=== PATIENT | female | born 1940 | race Caucasian/White ===

== ENCOUNTER → 2023-09-02 08:51 | Outpatient (REF) | payer MEDICARE, SELFPAY ==
[2023-09-02 09:13] LABS: % Basophils 1.2 % (0-2); % Eosinophils 1.9 % (0-6); % Immature Granulocytes 0.3 % (0-0.5); % Lymphocytes 15.3 % (20.5-51.1); % Monocytes 6.4 % (1.7-9.3); % Neutrophils 74.9 % (42.2-75.2); Absolute Basophils 0.1 10^3/uL (0-0.2); Absolute Eosinophils 0.1 10^3/uL (0-0.7); Absolute Lymphocytes 1.2 10^3/uL (1.2-3.4); Absolute Monocytes 0.5 10^3/uL (0.1-0.6); Absolute Neutrophils 5.6 10^3/uL (1.4-6.5); Hematocrit 38.2 % (37.0-47.0); Hemoglobin 13.6 g/dL (12.0-16.0); Mean Corp Hgb Conc. 35.6 g/dL (33.0-37.0); Mean Corpuscular Hgb 32.3 pg (27.0-31.0); Mean Corpuscular Volume 90.7 fL (81.0-99.0); Mean Platelet Volume 10.3 fL (7.4-10.4); Platelet Count 110 10^3/uL (130-400); Red Blood Cell Count 4.21 10^6/uL (4.20-5.40); Red Cell Dist. Width 12.4 % (11.5-14.5); White Blood Cell Count 7.5 10^3/uL (4.8-10.8)
== END ==
LOC: OIDL 08:51
PROVIDERS: ATTENDING PHYSICIAN Internal Medicine Hematology & Oncology; FAMILY PHYSICIAN Internal Medicine
DX: D69.3 Immune thrombocytopenic purpura (principal)
CPT/HCPCS: 36415; 85025

== ENCOUNTER → 2023-09-09 09:01 | Outpatient (REF) | payer MEDICARE, SELFPAY ==
[2023-09-09 09:11] LABS: % Basophils 1.5 % (0-2); % Eosinophils 2.7 % (0-6); % Immature Granulocytes 0.3 % (0-0.5); % Lymphocytes 17.3 % (20.5-51.1); % Monocytes 6.1 % (1.7-9.3); % Neutrophils 72.1 % (42.2-75.2); Absolute Basophils 0.1 10^3/uL (0-0.2); Absolute Eosinophils 0.2 10^3/uL (0-0.7); Absolute Lymphocytes 1.5 10^3/uL (1.2-3.4); Absolute Monocytes 0.5 10^3/uL (0.1-0.6); Absolute Neutrophils 6.4 10^3/uL (1.4-6.5); Hematocrit 38.3 % (37.0-47.0); Hemoglobin 13.7 g/dL (12.0-16.0); Mean Corp Hgb Conc. 35.8 g/dL (33.0-37.0); Mean Corpuscular Hgb 32.7 pg (27.0-31.0); Mean Corpuscular Volume 91.4 fL (81.0-99.0); Platelet Count 128 10^3/uL (130-400); Red Blood Cell Count 4.19 10^6/uL (4.20-5.40); Red Cell Dist. Width 12.3 % (11.5-14.5); White Blood Cell Count 8.9 10^3/uL (4.8-10.8)
== END ==
LOC: OIDL 09:01
PROVIDERS: ATTENDING PHYSICIAN Internal Medicine Hematology & Oncology; FAMILY PHYSICIAN Internal Medicine
DX: D69.3 Immune thrombocytopenic purpura (principal)
CPT/HCPCS: 36415; 85025

== ENCOUNTER → 2023-09-16 09:00 | Outpatient (REF) | payer MEDICARE, SELFPAY ==
[2023-09-16 09:13] LABS: % Basophils 1.2 % (0-2); % Eosinophils 1.3 % (0-6); % Immature Granulocytes 0.2 % (0-0.5); % Lymphocytes 15.1 % (20.5-51.1); % Monocytes 6.7 % (1.7-9.3); % Neutrophils 75.5 % (42.2-75.2); Absolute Basophils 0.1 10^3/uL (0-0.2); Absolute Eosinophils 0.1 10^3/uL (0-0.7); Absolute Lymphocytes 1.4 10^3/uL (1.2-3.4); Absolute Monocytes 0.6 10^3/uL (0.1-0.6); Absolute Neutrophils 6.8 10^3/uL (1.4-6.5); Hematocrit 39.1 % (37.0-47.0); Hemoglobin 13.9 g/dL (12.0-16.0); Mean Corp Hgb Conc. 35.5 g/dL (33.0-37.0); Mean Corpuscular Hgb 32.3 pg (27.0-31.0); Mean Corpuscular Volume 90.9 fL (81.0-99.0); Mean Platelet Volume 9.9 fL (7.4-10.4); Platelet Count 90 10^3/uL (130-400); Red Cell Dist. Width 12.3 % (11.5-14.5)
== END ==
LOC: OIDL 09:00
PROVIDERS: ATTENDING PHYSICIAN Internal Medicine Hematology & Oncology
DX: D69.3 Immune thrombocytopenic purpura (principal)
CPT/HCPCS: 36415; 85025

== ENCOUNTER → 2023-09-23 08:59 | Outpatient (REF) | payer MEDICARE, SELFPAY ==
[2023-09-23 09:22] LABS: % Basophils 1.2 % (0-2); % Eosinophils 1.8 % (0-6); % Immature Granulocytes 0.2 % (0-0.5); % Lymphocytes 15.5 % (20.5-51.1); % Neutrophils 75.3 % (42.2-75.2); Absolute Basophils 0.1 10^3/uL (0-0.2); Absolute Eosinophils 0.2 10^3/uL (0-0.7); Absolute Lymphocytes 1.3 10^3/uL (1.2-3.4); Absolute Monocytes 0.5 10^3/uL (0.1-0.6); Absolute Neutrophils 6.4 10^3/uL (1.4-6.5); Hematocrit 38.2 % (37.0-47.0); Hemoglobin 13.5 g/dL (12.0-16.0); Mean Corp Hgb Conc. 35.3 g/dL (33.0-37.0); Mean Corpuscular Hgb 32.1 pg (27.0-31.0); Mean Platelet Volume 9.8 fL (7.4-10.4); Platelet Count 117 10^3/uL (130-400); Red Cell Dist. Width 12.5 % (11.5-14.5); White Blood Cell Count 8.5 10^3/uL (4.8-10.8)
== END ==
LOC: OIDL 08:59
PROVIDERS: ATTENDING PHYSICIAN Internal Medicine Hematology & Oncology; FAMILY PHYSICIAN Internal Medicine
DX: D69.3 Immune thrombocytopenic purpura (principal)
CPT/HCPCS: 36415; 85025

== ENCOUNTER → 2023-09-30 09:03 | Outpatient (REF) | payer MEDICARE, SELFPAY ==
[2023-09-30 09:36] LABS: % Basophils 1.5 % (0-2); % Eosinophils 2.1 % (0-6); % Immature Granulocytes 0.6 % (0-0.5); % Lymphocytes 16.9 % (20.5-51.1); % Monocytes 5.8 % (1.7-9.3); % Neutrophils 73.1 % (42.2-75.2); Absolute Basophils 0.1 10^3/uL (0-0.2); Absolute Eosinophils 0.2 10^3/uL (0-0.7); Absolute Immature Granulocytes 0.1 10^3/uL (0-0.05); Absolute Lymphocytes 1.4 10^3/uL (1.2-3.4); Absolute Monocytes 0.5 10^3/uL (0.1-0.6); Absolute Neutrophils 6.1 10^3/uL (1.4-6.5); Hematocrit 37.7 % (37.0-47.0); Hemoglobin 13.6 g/dL (12.0-16.0); Mean Corp Hgb Conc. 36.1 g/dL (33.0-37.0); Mean Corpuscular Hgb 31.9 pg (27.0-31.0); Mean Corpuscular Volume 88.3 fL (81.0-99.0); Mean Platelet Volume 10.3 fL (7.4-10.4); Nucleated Red Blood Cells % 0 %; Platelet Count 145 10^3/uL (130-400); Red Blood Cell Count 4.27 10^6/uL (4.20-5.40); Red Cell Dist. Width 12.3 % (11.5-14.5); White Blood Cell Count 8.4 10^3/uL (4.8-10.8)
== END ==
LOC: OIDL 09:03
PROVIDERS: ATTENDING PHYSICIAN Internal Medicine Hematology & Oncology
DX: D69.3 Immune thrombocytopenic purpura (principal)
CPT/HCPCS: 85025

== ENCOUNTER → 2023-10-07 09:01 | Outpatient (REF) | payer MEDICARE, SELFPAY ==
[2023-10-07 09:35] LABS: % Basophils 1.1 % (0-2); % Eosinophils 1.2 % (0-6); % Immature Granulocytes 0.1 % (0-0.5); % Lymphocytes 13.3 % (20.5-51.1); % Monocytes 4.4 % (1.7-9.3); % Neutrophils 79.9 % (42.2-75.2); Absolute Basophils 0.1 10^3/uL (0-0.2); Absolute Eosinophils 0.1 10^3/uL (0-0.7); Absolute Lymphocytes 1.3 10^3/uL (1.2-3.4); Absolute Monocytes 0.4 10^3/uL (0.1-0.6); Absolute Neutrophils 7.6 10^3/uL (1.4-6.5); Hematocrit 38.3 % (37.0-47.0); Hemoglobin 13.7 g/dL (12.0-16.0); Mean Corp Hgb Conc. 35.8 g/dL (33.0-37.0); Mean Corpuscular Hgb 32.4 pg (27.0-31.0); Mean Corpuscular Volume 90.5 fL (81.0-99.0); Mean Platelet Volume 10.1 fL (7.4-10.4); Platelet Count 88 10^3/uL (130-400); Red Blood Cell Count 4.23 10^6/uL (4.20-5.40); Red Cell Dist. Width 12.2 % (11.5-14.5); White Blood Cell Count 9.5 10^3/uL (4.8-10.8)
== END ==
LOC: OIDL 09:01
PROVIDERS: ATTENDING PHYSICIAN Internal Medicine Hematology & Oncology; FAMILY PHYSICIAN Internal Medicine
DX: D69.3 Immune thrombocytopenic purpura (principal)
CPT/HCPCS: 36415; 85025

== ENCOUNTER → 2023-10-14 08:54 | Outpatient (REF) | payer MEDICARE, SELFPAY ==
[2023-10-14 09:20] LABS: % Basophils 1.1 % (0-2); % Eosinophils 1.1 % (0-6); % Immature Granulocytes 0.2 % (0-0.5); % Lymphocytes 12.7 % (20.5-51.1); % Neutrophils 78.9 % (42.2-75.2); Absolute Basophils 0.1 10^3/uL (0-0.2); Absolute Eosinophils 0.1 10^3/uL (0-0.7); Absolute Lymphocytes 1.3 10^3/uL (1.2-3.4); Absolute Monocytes 0.6 10^3/uL (0.1-0.6); Absolute Neutrophils 8.2 10^3/uL (1.4-6.5); Hematocrit 38.7 % (37.0-47.0); Hemoglobin 13.8 g/dL (12.0-16.0); Mean Corp Hgb Conc. 35.7 g/dL (33.0-37.0); Mean Corpuscular Hgb 32.1 pg (27.0-31.0); Mean Platelet Volume 10.4 fL (7.4-10.4); Platelet Count 89 10^3/uL (130-400); Red Cell Dist. Width 12.4 % (11.5-14.5); White Blood Cell Count 10.5 10^3/uL (4.8-10.8)
== END ==
LOC: OIDL 08:54
PROVIDERS: ATTENDING PHYSICIAN Internal Medicine Hematology & Oncology
DX: D69.3 Immune thrombocytopenic purpura (principal)
CPT/HCPCS: 36415; 85025

== ENCOUNTER → 2023-10-15 13:17 | Outpatient (REF) | payer MEDICARE, SELFPAY ==
[2023-10-15 13:18] LABS: Urine Albumin Negative (Neg - Trace); Urine Bilirubin Negative (Negative); Urine Character Very Cloudy (Clear); Urine Color Yellow; Urine Glucose Negative (Negative); Urine Ketone Negative (Negative); Urine Leukocyte 2+ (Negative); Urine Nitrite Negative (Negative); Urine Occult Blood 1+ (Negative); Urine Specific Gravity 1.015 (<1.030); Urine Urobilinogen Negative (Neg - 1+)
[2023-10-15 15:01] LABS: Urine Mucus Few
[2023-10-15 15:02] LABS: Urine Red Blood Cell 0-2 /HPF (0-2); Urine White Cell >100 /HPF (0-5)
[2023-10-15 15:06] LABS: Urine Bacteria Few (Negative)
== END ==
LOC: OIDL 13:17
PROVIDERS: ATTENDING PHYSICIAN Internal Medicine Hematology & Oncology
DX: D69.3 Immune thrombocytopenic purpura (principal); N39.0 Urinary tract infection, site not specified
CPT/HCPCS: 81003; 81015; 87086; 87147; 87186

== ENCOUNTER → 2023-10-21 08:57 | Outpatient (REF) | payer MEDICARE, SELFPAY ==
[2023-10-21 09:13] LABS: % Basophils 1.4 % (0-2); % Eosinophils 1.4 % (0-6); % Immature Granulocytes 0.3 % (0-0.5); % Lymphocytes 13.9 % (20.5-51.1); % Monocytes 5.9 % (1.7-9.3); % Neutrophils 77.1 % (42.2-75.2); Absolute Basophils 0.1 10^3/uL (0-0.2); Absolute Eosinophils 0.1 10^3/uL (0-0.7); Absolute Lymphocytes 1.4 10^3/uL (1.2-3.4); Absolute Monocytes 0.6 10^3/uL (0.1-0.6); Absolute Neutrophils 7.7 10^3/uL (1.4-6.5); Hematocrit 38.3 % (37.0-47.0); Hemoglobin 13.7 g/dL (12.0-16.0); Mean Corp Hgb Conc. 35.8 g/dL (33.0-37.0); Mean Corpuscular Hgb 32.2 pg (27.0-31.0); Mean Corpuscular Volume 90.1 fL (81.0-99.0); Mean Platelet Volume 9.9 fL (7.4-10.4); Platelet Count 123 10^3/uL (130-400); Red Blood Cell Count 4.25 10^6/uL (4.20-5.40); Red Cell Dist. Width 12.3 % (11.5-14.5)
== END ==
LOC: OIDL 08:57
PROVIDERS: ATTENDING PHYSICIAN Internal Medicine Hematology & Oncology
DX: D69.3 Immune thrombocytopenic purpura (principal)
CPT/HCPCS: 36415; 85025

== ENCOUNTER → 2023-10-28 08:54 | Outpatient (REF) | payer MEDICARE, SELFPAY ==
[2023-10-28 09:06] LABS: % Basophils 1.4 % (0-2); % Eosinophils 1.3 % (0-6); % Immature Granulocytes 0.1 % (0-0.5); % Monocytes 6.8 % (1.7-9.3); % Neutrophils 73.4 % (42.2-75.2); Absolute Basophils 0.1 10^3/uL (0-0.2); Absolute Eosinophils 0.1 10^3/uL (0-0.7); Absolute Lymphocytes 1.6 10^3/uL (1.2-3.4); Absolute Monocytes 0.6 10^3/uL (0.1-0.6); Absolute Neutrophils 6.7 10^3/uL (1.4-6.5); Hematocrit 38.4 % (37.0-47.0); Hemoglobin 13.8 g/dL (12.0-16.0); Mean Corp Hgb Conc. 35.9 g/dL (33.0-37.0); Mean Corpuscular Hgb 32.1 pg (27.0-31.0); Mean Corpuscular Volume 89.3 fL (81.0-99.0); Mean Platelet Volume 9.8 fL (7.4-10.4); Platelet Count 120 10^3/uL (130-400); Red Cell Dist. Width 12.3 % (11.5-14.5); White Blood Cell Count 9.1 10^3/uL (4.8-10.8)
== END ==
LOC: OIDL 08:54
PROVIDERS: ATTENDING PHYSICIAN Internal Medicine Hematology & Oncology
DX: D69.3 Immune thrombocytopenic purpura (principal)
CPT/HCPCS: 36415; 85025

== ENCOUNTER → 2023-11-04 10:35 | Outpatient (REF) | payer MEDICARE, SELFPAY ==
[2023-11-04 10:45] LABS: % Basophils 1.3 % (0-2); % Eosinophils 0.7 % (0-6); % Immature Granulocytes 0.1 % (0-0.5); % Monocytes 5.6 % (1.7-9.3); % Neutrophils 78.3 % (42.2-75.2); Absolute Basophils 0.1 10^3/uL (0-0.2); Absolute Eosinophils 0.1 10^3/uL (0-0.7); Absolute Lymphocytes 1.3 10^3/uL (1.2-3.4); Absolute Monocytes 0.5 10^3/uL (0.1-0.6); Absolute Neutrophils 7.1 10^3/uL (1.4-6.5); Hematocrit 39.5 % (37.0-47.0); Mean Corp Hgb Conc. 35.4 g/dL (33.0-37.0); Mean Corpuscular Hgb 32.1 pg (27.0-31.0); Mean Corpuscular Volume 90.6 fL (81.0-99.0); Mean Platelet Volume 10.3 fL (7.4-10.4); Platelet Count 73 10^3/uL (130-400); Red Blood Cell Count 4.36 10^6/uL (4.20-5.40); Red Cell Dist. Width 12.2 % (11.5-14.5)
== END ==
LOC: OIDL 10:35
PROVIDERS: ATTENDING PHYSICIAN Internal Medicine Hematology & Oncology; FAMILY PHYSICIAN Internal Medicine
DX: D69.3 Immune thrombocytopenic purpura (principal)
CPT/HCPCS: 36415; 85025

== ENCOUNTER → 2023-11-11 08:59 | Outpatient (REF) | payer MEDICARE, SELFPAY ==
[2023-11-11 09:10] LABS: % Basophils 1.1 % (0-2); % Eosinophils 1.6 % (0-6); % Immature Granulocytes 0.1 % (0-0.5); % Lymphocytes 17.3 % (20.5-51.1); % Monocytes 6.6 % (1.7-9.3); % Neutrophils 73.3 % (42.2-75.2); Absolute Basophils 0.1 10^3/uL (0-0.2); Absolute Eosinophils 0.2 10^3/uL (0-0.7); Absolute Lymphocytes 1.6 10^3/uL (1.2-3.4); Absolute Monocytes 0.6 10^3/uL (0.1-0.6); Absolute Neutrophils 6.9 10^3/uL (1.4-6.5); Hematocrit 39.3 % (37.0-47.0); Mean Corp Hgb Conc. 35.6 g/dL (33.0-37.0); Mean Corpuscular Hgb 32.1 pg (27.0-31.0); Mean Corpuscular Volume 90.1 fL (81.0-99.0); Mean Platelet Volume 10.4 fL (7.4-10.4); Platelet Count 127 10^3/uL (130-400); Red Blood Cell Count 4.36 10^6/uL (4.20-5.40); Red Cell Dist. Width 12.3 % (11.5-14.5); White Blood Cell Count 9.4 10^3/uL (4.8-10.8)
== END ==
LOC: OIDL 08:59
PROVIDERS: ATTENDING PHYSICIAN Internal Medicine Hematology & Oncology; FAMILY PHYSICIAN Internal Medicine
DX: D69.3 Immune thrombocytopenic purpura (principal); Z83.49 Family history of other endocrine, nutritional and metabolic diseases
CPT/HCPCS: 36415; 85025

== ENCOUNTER → 2023-11-18 09:06 | Outpatient (REF) | payer MEDICARE, SELFPAY ==
[2023-11-18 09:16] LABS: % Basophils 1.6 % (0-2); % Eosinophils 1.9 % (0-6); % Immature Granulocytes 0.3 % (0-0.5); % Lymphocytes 14.6 % (20.5-51.1); % Neutrophils 75.6 % (42.2-75.2); Absolute Basophils 0.2 10^3/uL (0-0.2); Absolute Eosinophils 0.2 10^3/uL (0-0.7); Absolute Lymphocytes 1.4 10^3/uL (1.2-3.4); Absolute Monocytes 0.6 10^3/uL (0.1-0.6); Hematocrit 39.9 % (37.0-47.0); Hemoglobin 14.1 g/dL (12.0-16.0); Mean Corp Hgb Conc. 35.3 g/dL (33.0-37.0); Mean Corpuscular Hgb 31.8 pg (27.0-31.0); Mean Corpuscular Volume 89.9 fL (81.0-99.0); Platelet Count 111 10^3/uL (130-400); Red Blood Cell Count 4.44 10^6/uL (4.20-5.40); Red Cell Dist. Width 12.3 % (11.5-14.5); White Blood Cell Count 9.3 10^3/uL (4.8-10.8)
== END ==
LOC: OIDL 09:06
PROVIDERS: ATTENDING PHYSICIAN Internal Medicine Hematology & Oncology; FAMILY PHYSICIAN Internal Medicine
DX: D69.3 Immune thrombocytopenic purpura (principal)
CPT/HCPCS: 36415; 85025

== ENCOUNTER → 2023-11-25 08:58 | Outpatient (REF) | payer MEDICARE, SELFPAY ==
[2023-11-25 09:11] LABS: % Basophils 1.4 % (0-2); % Eosinophils 1.5 % (0-6); % Immature Granulocytes 0.2 % (0-0.5); % Lymphocytes 16.1 % (20.5-51.1); % Monocytes 6.4 % (1.7-9.3); % Neutrophils 74.4 % (42.2-75.2); Absolute Basophils 0.1 10^3/uL (0-0.2); Absolute Eosinophils 0.1 10^3/uL (0-0.7); Absolute Lymphocytes 1.4 10^3/uL (1.2-3.4); Absolute Monocytes 0.6 10^3/uL (0.1-0.6); Absolute Neutrophils 6.5 10^3/uL (1.4-6.5); Mean Corpuscular Hgb 31.5 pg (27.0-31.0); Mean Corpuscular Volume 90.1 fL (81.0-99.0); Platelet Count 89 10^3/uL (130-400); Red Blood Cell Count 4.44 10^6/uL (4.20-5.40); Red Cell Dist. Width 12.5 % (11.5-14.5); White Blood Cell Count 8.7 10^3/uL (4.8-10.8)
== END ==
LOC: OIDL 08:58
PROVIDERS: ATTENDING PHYSICIAN Nurse Practitioner Adult Health; FAMILY PHYSICIAN Internal Medicine
DX: D69.3 Immune thrombocytopenic purpura (principal)
CPT/HCPCS: 36415; 85025

== ENCOUNTER → 2023-12-02 09:04 | Outpatient (REF) | payer MEDICARE, SELFPAY ==
[2023-12-02 09:18] LABS: % Eosinophils 1.4 % (0-6); % Immature Granulocytes 0.1 % (0-0.5); % Monocytes 6.7 % (1.7-9.3); % Neutrophils 76.8 % (42.2-75.2); Absolute Basophils 0.1 10^3/uL (0-0.2); Absolute Eosinophils 0.1 10^3/uL (0-0.7); Absolute Lymphocytes 1.3 10^3/uL (1.2-3.4); Absolute Monocytes 0.6 10^3/uL (0.1-0.6); Hematocrit 39.7 % (37.0-47.0); Mean Corp Hgb Conc. 35.3 g/dL (33.0-37.0); Mean Corpuscular Hgb 31.7 pg (27.0-31.0); Mean Corpuscular Volume 89.8 fL (81.0-99.0); Mean Platelet Volume 9.9 fL (7.4-10.4); Platelet Count 125 10^3/uL (130-400); Red Blood Cell Count 4.42 10^6/uL (4.20-5.40); Red Cell Dist. Width 12.3 % (11.5-14.5); White Blood Cell Count 9.1 10^3/uL (4.8-10.8)
== END ==
LOC: OIDL 09:04
PROVIDERS: ATTENDING PHYSICIAN Internal Medicine Hematology & Oncology
DX: D69.3 Immune thrombocytopenic purpura (principal)
CPT/HCPCS: 36415; 85025

== ENCOUNTER → 2023-12-09 09:05 | Outpatient (REF) | payer MEDICARE, SELFPAY ==
[2023-12-09 09:15] LABS: % Basophils 1.3 % (0-2); % Eosinophils 2.2 % (0-6); % Immature Granulocytes 0.2 % (0-0.5); % Lymphocytes 18.3 % (20.5-51.1); Absolute Basophils 0.1 10^3/uL (0-0.2); Absolute Eosinophils 0.2 10^3/uL (0-0.7); Absolute Lymphocytes 1.6 10^3/uL (1.2-3.4); Absolute Monocytes 0.5 10^3/uL (0.1-0.6); Absolute Neutrophils 6.3 10^3/uL (1.4-6.5); Hematocrit 38.6 % (37.0-47.0); Hemoglobin 13.7 g/dL (12.0-16.0); Mean Corp Hgb Conc. 35.5 g/dL (33.0-37.0); Mean Corpuscular Hgb 31.7 pg (27.0-31.0); Mean Corpuscular Volume 89.4 fL (81.0-99.0); Mean Platelet Volume 9.9 fL (7.4-10.4); Platelet Count 72 10^3/uL (130-400); Red Blood Cell Count 4.32 10^6/uL (4.20-5.40); Red Cell Dist. Width 12.5 % (11.5-14.5); White Blood Cell Count 8.7 10^3/uL (4.8-10.8)
== END ==
LOC: OIDL 09:05
PROVIDERS: ATTENDING PHYSICIAN Internal Medicine Hematology & Oncology
DX: D69.3 Immune thrombocytopenic purpura (principal)
CPT/HCPCS: 36415; 85025

== ENCOUNTER → 2023-12-16 09:03 | Outpatient (REF) | payer MEDICARE, SELFPAY ==
[2023-12-16 09:27] LABS: % Basophils 1.4 % (0-2); % Eosinophils 1.5 % (0-6); % Lymphocytes 17.2 % (20.5-51.1); % Neutrophils 73.9 % (42.2-75.2); Absolute Basophils 0.1 10^3/uL (0-0.2); Absolute Eosinophils 0.1 10^3/uL (0-0.7); Absolute Lymphocytes 1.3 10^3/uL (1.2-3.4); Absolute Monocytes 0.4 10^3/uL (0.1-0.6); Absolute Neutrophils 5.5 10^3/uL (1.4-6.5); Hematocrit 38.4 % (37.0-47.0); Hemoglobin 13.7 g/dL (12.0-16.0); Mean Corp Hgb Conc. 35.7 g/dL (33.0-37.0); Mean Corpuscular Volume 89.7 fL (81.0-99.0); Platelet Count 79 10^3/uL (130-400); Red Blood Cell Count 4.28 10^6/uL (4.20-5.40); Red Cell Dist. Width 12.4 % (11.5-14.5); White Blood Cell Count 7.4 10^3/uL (4.8-10.8)
== END ==
LOC: OIDL 09:03
PROVIDERS: ATTENDING PHYSICIAN Internal Medicine Hematology & Oncology; FAMILY PHYSICIAN Internal Medicine
DX: D69.3 Immune thrombocytopenic purpura (principal)
CPT/HCPCS: 36415; 85025

== ENCOUNTER → 2023-12-23 08:59 | Outpatient (REF) | payer MEDICARE, SELFPAY ==
[2023-12-23 09:25] LABS: % Basophils 1.1 % (0-2); % Immature Granulocytes 0.2 % (0-0.5); % Lymphocytes 15.3 % (20.5-51.1); % Monocytes 5.7 % (1.7-9.3); % Neutrophils 75.7 % (42.2-75.2); Absolute Basophils 0.1 10^3/uL (0-0.2); Absolute Eosinophils 0.2 10^3/uL (0-0.7); Absolute Lymphocytes 1.7 10^3/uL (1.2-3.4); Absolute Monocytes 0.6 10^3/uL (0.1-0.6); Absolute Neutrophils 8.3 10^3/uL (1.4-6.5); Hematocrit 38.8 % (37.0-47.0); Hemoglobin 13.7 g/dL (12.0-16.0); Mean Corp Hgb Conc. 35.3 g/dL (33.0-37.0); Mean Corpuscular Hgb 31.9 pg (27.0-31.0); Mean Corpuscular Volume 90.4 fL (81.0-99.0); Mean Platelet Volume 10.1 fL (7.4-10.4); Platelet Count 111 10^3/uL (130-400); Red Blood Cell Count 4.29 10^6/uL (4.20-5.40); Red Cell Dist. Width 12.4 % (11.5-14.5); White Blood Cell Count 10.9 10^3/uL (4.8-10.8)
== END ==
LOC: OIDL 08:59
PROVIDERS: ATTENDING PHYSICIAN Internal Medicine Hematology & Oncology
DX: D69.3 Immune thrombocytopenic purpura (principal)
CPT/HCPCS: 36415; 85025

== ENCOUNTER → 2023-12-30 08:55 | Outpatient (REF) | payer MEDICARE, SELFPAY ==
[2023-12-30 09:08] LABS: % Immature Granulocytes 0.2 % (0-0.5); % Lymphocytes 18.2 % (20.5-51.1); % Monocytes 5.7 % (1.7-9.3); % Neutrophils 72.9 % (42.2-75.2); Absolute Basophils 0.1 10^3/uL (0-0.2); Absolute Eosinophils 0.2 10^3/uL (0-0.7); Absolute Lymphocytes 1.6 10^3/uL (1.2-3.4); Absolute Monocytes 0.5 10^3/uL (0.1-0.6); Absolute Neutrophils 6.4 10^3/uL (1.4-6.5); Hematocrit 38.3 % (37.0-47.0); Hemoglobin 13.7 g/dL (12.0-16.0); Mean Corp Hgb Conc. 35.8 g/dL (33.0-37.0); Mean Corpuscular Hgb 32.2 pg (27.0-31.0); Mean Corpuscular Volume 89.9 fL (81.0-99.0); Mean Platelet Volume 9.7 fL (7.4-10.4); Platelet Count 115 10^3/uL (130-400); Red Blood Cell Count 4.26 10^6/uL (4.20-5.40); Red Cell Dist. Width 12.5 % (11.5-14.5); White Blood Cell Count 8.8 10^3/uL (4.8-10.8)
== END ==
LOC: OIDL 08:55
PROVIDERS: ATTENDING PHYSICIAN Internal Medicine Hematology & Oncology; FAMILY PHYSICIAN Internal Medicine
DX: D69.3 Immune thrombocytopenic purpura (principal)
CPT/HCPCS: 36415; 85025

== ENCOUNTER → 2024-01-06 09:00 | Outpatient (REF) | payer MEDICARE, SELFPAY ==
[2024-01-06 09:16] LABS: % Eosinophils 1.4 % (0-6); % Immature Granulocytes 0.3 % (0-0.5); % Monocytes 6.4 % (1.7-9.3); % Neutrophils 73.9 % (42.2-75.2); Absolute Basophils 0.1 10^3/uL (0-0.2); Absolute Eosinophils 0.1 10^3/uL (0-0.7); Absolute Lymphocytes 1.4 10^3/uL (1.2-3.4); Absolute Monocytes 0.5 10^3/uL (0.1-0.6); Absolute Neutrophils 5.9 10^3/uL (1.4-6.5); Hematocrit 39.5 % (37.0-47.0); Hemoglobin 14.1 g/dL (12.0-16.0); Mean Corp Hgb Conc. 35.7 g/dL (33.0-37.0); Mean Corpuscular Volume 89.8 fL (81.0-99.0); Mean Platelet Volume 9.8 fL (7.4-10.4); Platelet Count 92 10^3/uL (130-400); Red Cell Dist. Width 12.4 % (11.5-14.5)
== END ==
LOC: OIDL 09:00
PROVIDERS: ATTENDING PHYSICIAN Internal Medicine Hematology & Oncology; FAMILY PHYSICIAN Internal Medicine
DX: D69.3 Immune thrombocytopenic purpura (principal)
CPT/HCPCS: 36415; 85025

== ENCOUNTER → 2024-01-13 10:03 | Outpatient (REF) | payer MEDICARE, SELFPAY ==
[2024-01-13 09:55] LABS: % Basophils 0.9 % (0-2); % Eosinophils 1.1 % (0-6); % Immature Granulocytes 0.5 % (0-0.5); % Lymphocytes 14.4 % (20.5-51.1); % Monocytes 5.8 % (1.7-9.3); % Neutrophils 77.3 % (42.2-75.2); Absolute Basophils 0.1 10^3/uL (0-0.2); Absolute Eosinophils 0.2 10^3/uL (0-0.7); Absolute Immature Granulocytes 0.1 10^3/uL (0-0.05); Absolute Lymphocytes 1.9 10^3/uL (1.2-3.4); Absolute Monocytes 0.8 10^3/uL (0.1-0.6); Absolute Neutrophils 10.1 10^3/uL (1.4-6.5); Hemoglobin 14.3 g/dL (12.0-16.0); Mean Corp Hgb Conc. 35.8 g/dL (33.0-37.0); Mean Corpuscular Hgb 32.1 pg (27.0-31.0); Mean Corpuscular Volume 89.9 fL (81.0-99.0); Mean Platelet Volume 11.1 fL (7.4-10.4); Nucleated Red Blood Cells % 0 %; Platelet Count 179 10^3/uL (130-400); Red Blood Cell Count 4.45 10^6/uL (4.20-5.40); Red Cell Dist. Width 12.2 % (11.5-14.5); White Blood Cell Count 13.1 10^3/uL (4.8-10.8)
== END ==
LOC: OIDL 10:03
PROVIDERS: ATTENDING PHYSICIAN Internal Medicine Hematology & Oncology
DX: D69.3 Immune thrombocytopenic purpura (principal)
CPT/HCPCS: 85025

== ENCOUNTER → 2024-01-20 08:49 | Outpatient (REF) | payer MEDICARE, SELFPAY ==
[2024-01-20 08:59] LABS: % Basophils 1.1 % (0-2); % Eosinophils 2.3 % (0-6); % Immature Granulocytes 0.2 % (0-0.5); % Lymphocytes 17.3 % (20.5-51.1); % Monocytes 6.8 % (1.7-9.3); % Neutrophils 72.3 % (42.2-75.2); Absolute Basophils 0.1 10^3/uL (0-0.2); Absolute Eosinophils 0.2 10^3/uL (0-0.7); Absolute Lymphocytes 1.7 10^3/uL (1.2-3.4); Absolute Monocytes 0.7 10^3/uL (0.1-0.6); Hematocrit 38.8 % (37.0-47.0); Hemoglobin 13.9 g/dL (12.0-16.0); Mean Corp Hgb Conc. 35.8 g/dL (33.0-37.0); Mean Corpuscular Volume 89.4 fL (81.0-99.0); Platelet Count 124 10^3/uL (130-400); Red Blood Cell Count 4.34 10^6/uL (4.20-5.40); Red Cell Dist. Width 12.1 % (11.5-14.5); White Blood Cell Count 9.7 10^3/uL (4.8-10.8)
== END ==
LOC: OIDL 08:49
PROVIDERS: ATTENDING PHYSICIAN Internal Medicine Hematology & Oncology; FAMILY PHYSICIAN Internal Medicine
DX: D69.3 Immune thrombocytopenic purpura (principal)
CPT/HCPCS: 36415; 85025

== ENCOUNTER → 2024-01-27 08:55 | Outpatient (REF) | payer MEDICARE, SELFPAY ==
[2024-01-27 09:06] LABS: % Basophils 1.1 % (0-2); % Eosinophils 1.3 % (0-6); % Immature Granulocytes 0.2 % (0-0.5); % Lymphocytes 18.6 % (20.5-51.1); % Monocytes 6.3 % (1.7-9.3); % Neutrophils 72.5 % (42.2-75.2); Absolute Basophils 0.1 10^3/uL (0-0.2); Absolute Eosinophils 0.1 10^3/uL (0-0.7); Absolute Lymphocytes 1.7 10^3/uL (1.2-3.4); Absolute Monocytes 0.6 10^3/uL (0.1-0.6); Absolute Neutrophils 6.6 10^3/uL (1.4-6.5); Hematocrit 39.3 % (37.0-47.0); Mean Corp Hgb Conc. 35.6 g/dL (33.0-37.0); Mean Corpuscular Hgb 31.8 pg (27.0-31.0); Mean Corpuscular Volume 89.3 fL (81.0-99.0); Mean Platelet Volume 9.8 fL (7.4-10.4); Platelet Count 85 10^3/uL (130-400); Red Cell Dist. Width 12.2 % (11.5-14.5); White Blood Cell Count 9.1 10^3/uL (4.8-10.8)
== END ==
LOC: OIDL 08:55
PROVIDERS: ATTENDING PHYSICIAN Internal Medicine Hematology & Oncology
DX: D69.3 Immune thrombocytopenic purpura (principal)
CPT/HCPCS: 36415; 85025

== ENCOUNTER → 2024-02-02 09:01 | Outpatient (REF) | payer MEDICARE, SELFPAY ==
[2024-02-02 09:12] LABS: % Basophils 0.8 % (0-2); % Eosinophils 1.3 % (0-6); % Immature Granulocytes 0.3 % (0-0.5); % Lymphocytes 15.4 % (20.5-51.1); % Monocytes 6.2 % (1.7-9.3); Absolute Basophils 0.1 10^3/uL (0-0.2); Absolute Eosinophils 0.2 10^3/uL (0-0.7); Absolute Lymphocytes 1.8 10^3/uL (1.2-3.4); Absolute Monocytes 0.7 10^3/uL (0.1-0.6); Hematocrit 38.8 % (37.0-47.0); Mean Corp Hgb Conc. 36.1 g/dL (33.0-37.0); Mean Corpuscular Hgb 32.3 pg (27.0-31.0); Mean Corpuscular Volume 89.6 fL (81.0-99.0); Mean Platelet Volume 10.4 fL (7.4-10.4); Platelet Count 134 10^3/uL (130-400); Red Blood Cell Count 4.33 10^6/uL (4.20-5.40); Red Cell Dist. Width 12.5 % (11.5-14.5); White Blood Cell Count 11.9 10^3/uL (4.8-10.8)
== END ==
LOC: OIDL 09:01
PROVIDERS: ATTENDING PHYSICIAN Internal Medicine Hematology & Oncology; FAMILY PHYSICIAN Internal Medicine
DX: D69.3 Immune thrombocytopenic purpura (principal)
CPT/HCPCS: 36415; 85025

== ENCOUNTER → 2024-02-10 09:08 | Outpatient (REF) | payer MEDICARE, SELFPAY ==
[2024-02-10 09:32] LABS: % Eosinophils 1.8 % (0-6); % Immature Granulocytes 0.3 % (0-0.5); % Lymphocytes 14.2 % (20.5-51.1); % Monocytes 6.2 % (1.7-9.3); % Neutrophils 76.5 % (42.2-75.2); Absolute Basophils 0.1 10^3/uL (0-0.2); Absolute Eosinophils 0.2 10^3/uL (0-0.7); Absolute Lymphocytes 1.4 10^3/uL (1.2-3.4); Absolute Monocytes 0.6 10^3/uL (0.1-0.6); Absolute Neutrophils 7.4 10^3/uL (1.4-6.5); Hematocrit 38.1 % (37.0-47.0); Hemoglobin 13.7 g/dL (12.0-16.0); Mean Corpuscular Hgb 32.2 pg (27.0-31.0); Mean Corpuscular Volume 89.4 fL (81.0-99.0); Mean Platelet Volume 9.7 fL (7.4-10.4); Platelet Count 162 10^3/uL (130-400); Red Blood Cell Count 4.26 10^6/uL (4.20-5.40); Red Cell Dist. Width 12.3 % (11.5-14.5); White Blood Cell Count 9.7 10^3/uL (4.8-10.8)
== END ==
LOC: OIDL 09:08
PROVIDERS: ATTENDING PHYSICIAN Internal Medicine Hematology & Oncology; PRIMARYCARE PHYSICIAN Internal Medicine
DX: D69.3 Immune thrombocytopenic purpura (principal)
CPT/HCPCS: 36415; 85025

== ENCOUNTER → 2024-02-17 09:03 | Outpatient (REF) | payer MEDICARE, SELFPAY ==
[2024-02-17 09:23] LABS: % Basophils 1.2 % (0-2); % Eosinophils 1.6 % (0-6); % Immature Granulocytes 0.2 % (0-0.5); % Lymphocytes 18.8 % (20.5-51.1); % Monocytes 6.7 % (1.7-9.3); % Neutrophils 71.5 % (42.2-75.2); Absolute Basophils 0.1 10^3/uL (0-0.2); Absolute Eosinophils 0.1 10^3/uL (0-0.7); Absolute Lymphocytes 1.7 10^3/uL (1.2-3.4); Absolute Monocytes 0.6 10^3/uL (0.1-0.6); Absolute Neutrophils 6.3 10^3/uL (1.4-6.5); Hematocrit 38.7 % (37.0-47.0); Hemoglobin 13.7 g/dL (12.0-16.0); Mean Corp Hgb Conc. 35.4 g/dL (33.0-37.0); Mean Corpuscular Hgb 31.7 pg (27.0-31.0); Mean Corpuscular Volume 89.6 fL (81.0-99.0); Mean Platelet Volume 10.2 fL (7.4-10.4); Platelet Count 73 10^3/uL (130-400); Red Blood Cell Count 4.32 10^6/uL (4.20-5.40); Red Cell Dist. Width 12.4 % (11.5-14.5); White Blood Cell Count 8.9 10^3/uL (4.8-10.8)
== END ==
LOC: OIDL 09:03
PROVIDERS: ATTENDING PHYSICIAN Internal Medicine Hematology & Oncology; FAMILY PHYSICIAN Internal Medicine
DX: D69.3 Immune thrombocytopenic purpura (principal)
CPT/HCPCS: 36415; 85025

== ENCOUNTER → 2024-02-24 09:32 | Outpatient (REF) | payer MEDICARE, SELFPAY ==
[2024-02-24 09:45] LABS: % Basophils 1.3 % (0-2); % Eosinophils 1.3 % (0-6); % Immature Granulocytes 0.3 % (0-0.5); % Lymphocytes 14.6 % (20.5-51.1); % Monocytes 6.2 % (1.7-9.3); % Neutrophils 76.3 % (42.2-75.2); Absolute Basophils 0.1 10^3/uL (0-0.2); Absolute Eosinophils 0.1 10^3/uL (0-0.7); Absolute Lymphocytes 1.3 10^3/uL (1.2-3.4); Absolute Monocytes 0.5 10^3/uL (0.1-0.6); Absolute Neutrophils 6.7 10^3/uL (1.4-6.5); Hematocrit 37.1 % (37.0-47.0); Hemoglobin 13.6 g/dL (12.0-16.0); Mean Corp Hgb Conc. 36.7 g/dL (33.0-37.0); Mean Corpuscular Hgb 31.9 pg (27.0-31.0); Mean Corpuscular Volume 86.9 fL (81.0-99.0); Mean Platelet Volume 10.5 fL (7.4-10.4); Nucleated Red Blood Cells % 0 %; Platelet Count 127 10^3/uL (130-400); Red Blood Cell Count 4.27 10^6/uL (4.20-5.40); Red Cell Dist. Width 12.5 % (11.5-14.5); White Blood Cell Count 8.8 10^3/uL (4.8-10.8)
== END ==
LOC: OIDL 09:32
PROVIDERS: ATTENDING PHYSICIAN Internal Medicine Hematology & Oncology
DX: D69.3 Immune thrombocytopenic purpura (principal)
CPT/HCPCS: 85025

== ENCOUNTER → 2024-03-02 08:56 | Outpatient (REF) | payer MEDICARE, SELFPAY ==
[2024-03-02 09:07] LABS: % Basophils 0.7 % (0-2); % Eosinophils 1.7 % (0-6); % Immature Granulocytes 0.2 % (0-0.5); % Lymphocytes 14.9 % (20.5-51.1); % Monocytes 5.6 % (1.7-9.3); % Neutrophils 76.9 % (42.2-75.2); Absolute Basophils 0.1 10^3/uL (0-0.2); Absolute Eosinophils 0.2 10^3/uL (0-0.7); Absolute Lymphocytes 1.5 10^3/uL (1.2-3.4); Absolute Monocytes 0.6 10^3/uL (0.1-0.6); Absolute Neutrophils 7.6 10^3/uL (1.4-6.5); Hematocrit 38.8 % (37.0-47.0); Hemoglobin 13.8 g/dL (12.0-16.0); Mean Corp Hgb Conc. 35.6 g/dL (33.0-37.0); Mean Corpuscular Hgb 31.8 pg (27.0-31.0); Mean Corpuscular Volume 89.4 fL (81.0-99.0); Platelet Count 132 10^3/uL (130-400); Red Blood Cell Count 4.34 10^6/uL (4.20-5.40); Red Cell Dist. Width 12.4 % (11.5-14.5); White Blood Cell Count 9.9 10^3/uL (4.8-10.8)
== END ==
LOC: OIDL 08:56
PROVIDERS: ATTENDING PHYSICIAN Internal Medicine Hematology & Oncology; FAMILY PHYSICIAN Internal Medicine
DX: D69.3 Immune thrombocytopenic purpura (principal)
CPT/HCPCS: 36415; 85025

== ENCOUNTER → 2024-03-09 09:05 | Outpatient (REF) | payer MEDICARE, SELFPAY ==
[2024-03-09 09:22] LABS: % Eosinophils 1.4 % (0-6); % Immature Granulocytes 0.1 % (0-0.5); % Monocytes 6.3 % (1.7-9.3); % Neutrophils 73.2 % (42.2-75.2); Absolute Basophils 0.1 10^3/uL (0-0.2); Absolute Eosinophils 0.1 10^3/uL (0-0.7); Absolute Lymphocytes 1.4 10^3/uL (1.2-3.4); Absolute Monocytes 0.5 10^3/uL (0.1-0.6); Absolute Neutrophils 5.7 10^3/uL (1.4-6.5); Hematocrit 39.1 % (37.0-47.0); Hemoglobin 14.1 g/dL (12.0-16.0); Mean Corp Hgb Conc. 36.1 g/dL (33.0-37.0); Mean Corpuscular Hgb 32.3 pg (27.0-31.0); Mean Corpuscular Volume 89.5 fL (81.0-99.0); Mean Platelet Volume 9.7 fL (7.4-10.4); Platelet Count 95 10^3/uL (130-400); Red Blood Cell Count 4.37 10^6/uL (4.20-5.40); Red Cell Dist. Width 12.3 % (11.5-14.5); White Blood Cell Count 7.7 10^3/uL (4.8-10.8)
== END ==
LOC: OIDL 09:05
PROVIDERS: ATTENDING PHYSICIAN Internal Medicine Hematology & Oncology; FAMILY PHYSICIAN Internal Medicine
DX: D69.3 Immune thrombocytopenic purpura (principal)
CPT/HCPCS: 85025

== ENCOUNTER → 2024-03-16 09:05 | Outpatient (REF) | payer MEDICARE, SELFPAY ==
[2024-03-16 09:25] LABS: % Eosinophils 1.3 % (0-6); % Immature Granulocytes 0.2 % (0-0.5); % Lymphocytes 17.3 % (20.5-51.1); % Monocytes 5.9 % (1.7-9.3); % Neutrophils 74.3 % (42.2-75.2); Absolute Basophils 0.1 10^3/uL (0-0.2); Absolute Eosinophils 0.1 10^3/uL (0-0.7); Absolute Lymphocytes 1.8 10^3/uL (1.2-3.4); Absolute Monocytes 0.6 10^3/uL (0.1-0.6); Absolute Neutrophils 7.5 10^3/uL (1.4-6.5); Hematocrit 38.8 % (37.0-47.0); Hemoglobin 13.9 g/dL (12.0-16.0); Mean Corp Hgb Conc. 35.8 g/dL (33.0-37.0); Mean Corpuscular Volume 89.4 fL (81.0-99.0); Mean Platelet Volume 9.9 fL (7.4-10.4); Platelet Count 90 10^3/uL (130-400); Red Blood Cell Count 4.34 10^6/uL (4.20-5.40); Red Cell Dist. Width 12.5 % (11.5-14.5); White Blood Cell Count 10.1 10^3/uL (4.8-10.8)
== END ==
LOC: OIDL 09:05
PROVIDERS: ATTENDING PHYSICIAN Internal Medicine Hematology & Oncology
DX: D69.3 Immune thrombocytopenic purpura (principal)
CPT/HCPCS: 36415; 85025

== ENCOUNTER → 2024-03-23 09:10 | Outpatient (REF) | payer MEDICARE, SELFPAY ==
[2024-03-23 09:22] LABS: % Basophils 0.8 % (0-2); % Eosinophils 1.6 % (0-6); % Immature Granulocytes 0.2 % (0-0.5); % Lymphocytes 16.3 % (20.5-51.1); % Monocytes 5.3 % (1.7-9.3); % Neutrophils 75.8 % (42.2-75.2); Absolute Basophils 0.1 10^3/uL (0-0.2); Absolute Eosinophils 0.2 10^3/uL (0-0.7); Absolute Lymphocytes 1.8 10^3/uL (1.2-3.4); Absolute Monocytes 0.6 10^3/uL (0.1-0.6); Absolute Neutrophils 8.2 10^3/uL (1.4-6.5); Hematocrit 40.1 % (37.0-47.0); Hemoglobin 14.3 g/dL (12.0-16.0); Mean Corp Hgb Conc. 35.7 g/dL (33.0-37.0); Mean Corpuscular Hgb 32.2 pg (27.0-31.0); Mean Corpuscular Volume 90.3 fL (81.0-99.0); Mean Platelet Volume 9.9 fL (7.4-10.4); Platelet Count 178 10^3/uL (130-400); Red Blood Cell Count 4.44 10^6/uL (4.20-5.40); Red Cell Dist. Width 12.6 % (11.5-14.5); White Blood Cell Count 10.8 10^3/uL (4.8-10.8)
== END ==
LOC: OIDL 09:10
PROVIDERS: ATTENDING PHYSICIAN Internal Medicine Hematology & Oncology
DX: D69.3 Immune thrombocytopenic purpura (principal)
CPT/HCPCS: 36415; 85025

== ENCOUNTER → 2024-03-30 09:43 | Outpatient (REF) | payer MEDICARE, SELFPAY ==
[2024-03-30 09:47] LABS: % Basophils 1.3 % (0-2); % Eosinophils 1.4 % (0-6); % Immature Granulocytes 0.4 % (0-0.5); % Lymphocytes 14.6 % (20.5-51.1); % Monocytes 5.5 % (1.7-9.3); % Neutrophils 76.8 % (42.2-75.2); Absolute Basophils 0.1 10^3/uL (0-0.2); Absolute Eosinophils 0.1 10^3/uL (0-0.7); Absolute Lymphocytes 1.4 10^3/uL (1.2-3.4); Absolute Monocytes 0.5 10^3/uL (0.1-0.6); Absolute Neutrophils 7.3 10^3/uL (1.4-6.5); Hematocrit 36.7 % (37.0-47.0); Hemoglobin 13.6 g/dL (12.0-16.0); Mean Corp Hgb Conc. 37.1 g/dL (33.0-37.0); Mean Corpuscular Hgb 31.7 pg (27.0-31.0); Mean Corpuscular Volume 85.5 fL (81.0-99.0); Mean Platelet Volume 10.3 fL (7.4-10.4); Nucleated Red Blood Cells % 0 %; Platelet Count 154 10^3/uL (130-400); Red Blood Cell Count 4.29 10^6/uL (4.20-5.40); Red Cell Dist. Width 12.8 % (11.5-14.5); White Blood Cell Count 9.6 10^3/uL (4.8-10.8)
== END ==
LOC: OIDL 09:43
PROVIDERS: ATTENDING PHYSICIAN Internal Medicine Hematology & Oncology
DX: D69.3 Immune thrombocytopenic purpura (principal)
CPT/HCPCS: 85025

== ENCOUNTER → 2024-04-06 09:02 | Outpatient (REF) | payer MEDICARE, SELFPAY ==
[2024-04-06 09:21] LABS: % Eosinophils 1.6 % (0-6); % Immature Granulocytes 0.3 % (0-0.5); % Lymphocytes 17.7 % (20.5-51.1); % Monocytes 5.7 % (1.7-9.3); % Neutrophils 73.7 % (42.2-75.2); Absolute Basophils 0.1 10^3/uL (0-0.2); Absolute Eosinophils 0.2 10^3/uL (0-0.7); Absolute Lymphocytes 1.7 10^3/uL (1.2-3.4); Absolute Monocytes 0.6 10^3/uL (0.1-0.6); Absolute Neutrophils 7.3 10^3/uL (1.4-6.5); Hematocrit 39.2 % (37.0-47.0); Hemoglobin 14.1 g/dL (12.0-16.0); Mean Corpuscular Hgb 32.1 pg (27.0-31.0); Mean Corpuscular Volume 89.3 fL (81.0-99.0); Mean Platelet Volume 9.9 fL (7.4-10.4); Platelet Count 123 10^3/uL (130-400); Red Blood Cell Count 4.39 10^6/uL (4.20-5.40); Red Cell Dist. Width 12.3 % (11.5-14.5); White Blood Cell Count 9.9 10^3/uL (4.8-10.8)
== END ==
LOC: OIDL 09:02
PROVIDERS: ATTENDING PHYSICIAN Internal Medicine Hematology & Oncology; FAMILY PHYSICIAN Internal Medicine
DX: D69.3 Immune thrombocytopenic purpura (principal)
CPT/HCPCS: 36415; 85025

== ENCOUNTER → 2024-04-13 09:00 | Outpatient (REF) | payer MEDICARE, SELFPAY ==
[2024-04-13 09:25] LABS: % Basophils 0.7 % (0-2); % Eosinophils 1.4 % (0-6); % Immature Granulocytes 0.3 % (0-0.5); % Lymphocytes 16.8 % (20.5-51.1); % Monocytes 5.9 % (1.7-9.3); % Neutrophils 74.9 % (42.2-75.2); Absolute Basophils 0.1 10^3/uL (0-0.2); Absolute Eosinophils 0.1 10^3/uL (0-0.7); Absolute Lymphocytes 1.7 10^3/uL (1.2-3.4); Absolute Monocytes 0.6 10^3/uL (0.1-0.6); Absolute Neutrophils 7.4 10^3/uL (1.4-6.5); Hematocrit 38.4 % (37.0-47.0); Hemoglobin 13.9 g/dL (12.0-16.0); Mean Corp Hgb Conc. 36.2 g/dL (33.0-37.0); Mean Corpuscular Hgb 32.3 pg (27.0-31.0); Mean Corpuscular Volume 89.3 fL (81.0-99.0); Platelet Count 109 10^3/uL (130-400); Red Cell Dist. Width 12.3 % (11.5-14.5); White Blood Cell Count 9.9 10^3/uL (4.8-10.8)
== END ==
LOC: OIDL 09:00
PROVIDERS: ATTENDING PHYSICIAN Internal Medicine Hematology & Oncology
DX: D69.3 Immune thrombocytopenic purpura (principal)
CPT/HCPCS: 36415; 85025

== ENCOUNTER → 2024-04-20 09:08 | Outpatient (REF) | payer MEDICARE, SELFPAY ==
[2024-04-20 09:22] LABS: % Basophils 0.7 % (0-2); % Eosinophils 1.6 % (0-6); % Immature Granulocytes 0.1 % (0-0.5); % Lymphocytes 19.4 % (20.5-51.1); % Monocytes 5.8 % (1.7-9.3); % Neutrophils 72.4 % (42.2-75.2); Absolute Basophils 0.1 10^3/uL (0-0.2); Absolute Eosinophils 0.2 10^3/uL (0-0.7); Absolute Lymphocytes 1.8 10^3/uL (1.2-3.4); Absolute Monocytes 0.5 10^3/uL (0.1-0.6); Absolute Neutrophils 6.6 10^3/uL (1.4-6.5); Hemoglobin 13.9 g/dL (12.0-16.0); Mean Corp Hgb Conc. 35.6 g/dL (33.0-37.0); Mean Corpuscular Hgb 31.9 pg (27.0-31.0); Mean Corpuscular Volume 89.4 fL (81.0-99.0); Mean Platelet Volume 9.9 fL (7.4-10.4); Platelet Count 100 10^3/uL (130-400); Red Blood Cell Count 4.36 10^6/uL (4.20-5.40); Red Cell Dist. Width 12.4 % (11.5-14.5); White Blood Cell Count 9.1 10^3/uL (4.8-10.8)
== END ==
LOC: OIDL 09:08
PROVIDERS: ATTENDING PHYSICIAN Internal Medicine Hematology & Oncology
DX: D69.3 Immune thrombocytopenic purpura (principal)
CPT/HCPCS: 36415; 85025

== ENCOUNTER → 2024-04-27 09:09 | Outpatient (REF) | payer MEDICARE, SELFPAY ==
[2024-04-27 09:19] LABS: % Basophils 1.1 % (0-2); % Eosinophils 2.2 % (0-6); % Immature Granulocytes 0.3 % (0-0.5); % Lymphocytes 18.9 % (20.5-51.1); % Monocytes 5.9 % (1.7-9.3); % Neutrophils 71.6 % (42.2-75.2); Absolute Basophils 0.1 10^3/uL (0-0.2); Absolute Eosinophils 0.2 10^3/uL (0-0.7); Absolute Lymphocytes 1.9 10^3/uL (1.2-3.4); Absolute Monocytes 0.6 10^3/uL (0.1-0.6); Absolute Neutrophils 7.1 10^3/uL (1.4-6.5); Hematocrit 39.2 % (37.0-47.0); Hemoglobin 13.9 g/dL (12.0-16.0); Mean Corp Hgb Conc. 35.5 g/dL (33.0-37.0); Mean Corpuscular Hgb 31.9 pg (27.0-31.0); Mean Corpuscular Volume 89.9 fL (81.0-99.0); Mean Platelet Volume 10.1 fL (7.4-10.4); Platelet Count 156 10^3/uL (130-400); Red Blood Cell Count 4.36 10^6/uL (4.20-5.40); Red Cell Dist. Width 12.5 % (11.5-14.5); White Blood Cell Count 9.9 10^3/uL (4.8-10.8)
== END ==
LOC: OIDL 09:09
PROVIDERS: ATTENDING PHYSICIAN Internal Medicine Hematology & Oncology; FAMILY PHYSICIAN Internal Medicine
DX: D69.3 Immune thrombocytopenic purpura (principal)
CPT/HCPCS: 36415; 85025

== ENCOUNTER → 2024-05-04 09:20 | Outpatient (REF) | payer MEDICARE, SELFPAY ==
[2024-05-04 09:43] LABS: % Basophils 1.3 % (0-2); % Eosinophils 1.7 % (0-6); % Immature Granulocytes 0.8 % (0-0.5); % Lymphocytes 17.1 % (20.5-51.1); % Monocytes 6.3 % (1.7-9.3); % Neutrophils 72.8 % (42.2-75.2); Absolute Basophils 0.1 10^3/uL (0-0.2); Absolute Eosinophils 0.2 10^3/uL (0-0.7); Absolute Immature Granulocytes 0.1 10^3/uL (0-0.05); Absolute Lymphocytes 1.8 10^3/uL (1.2-3.4); Absolute Monocytes 0.7 10^3/uL (0.1-0.6); Absolute Neutrophils 7.6 10^3/uL (1.4-6.5); Hematocrit 38.5 % (37.0-47.0); Hemoglobin 13.9 g/dL (12.0-16.0); Mean Corp Hgb Conc. 36.1 g/dL (33.0-37.0); Mean Corpuscular Hgb 32.4 pg (27.0-31.0); Mean Corpuscular Volume 89.7 fL (81.0-99.0); Nucleated Red Blood Cells % 0 %; Platelet Count 242 10^3/uL (130-400); Red Blood Cell Count 4.29 10^6/uL (4.20-5.40); Red Cell Dist. Width 12.6 % (11.5-14.5); White Blood Cell Count 10.4 10^3/uL (4.8-10.8)
== END ==
LOC: OIDL 09:20
PROVIDERS: ATTENDING PHYSICIAN Internal Medicine Hematology & Oncology
DX: D69.3 Immune thrombocytopenic purpura (principal); G62.9 Polyneuropathy, unspecified
CPT/HCPCS: 85025

== ENCOUNTER → 2024-05-11 08:58 | Outpatient (REF) | payer MEDICARE, SELFPAY ==
[2024-05-11 09:16] LABS: % Basophils 1.1 % (0-2); % Eosinophils 2.1 % (0-6); % Immature Granulocytes 0.5 % (0-0.5); % Lymphocytes 17.4 % (20.5-51.1); % Monocytes 6.2 % (1.7-9.3); % Neutrophils 72.7 % (42.2-75.2); Absolute Basophils 0.1 10^3/uL (0-0.2); Absolute Eosinophils 0.2 10^3/uL (0-0.7); Absolute Immature Granulocytes 0.1 10^3/uL (0-0.05); Absolute Lymphocytes 1.9 10^3/uL (1.2-3.4); Absolute Monocytes 0.7 10^3/uL (0.1-0.6); Hematocrit 39.2 % (37.0-47.0); Hemoglobin 13.9 g/dL (12.0-16.0); Mean Corp Hgb Conc. 35.5 g/dL (33.0-37.0); Mean Corpuscular Hgb 31.9 pg (27.0-31.0); Mean Corpuscular Volume 89.9 fL (81.0-99.0); Mean Platelet Volume 9.8 fL (7.4-10.4); Platelet Count 224 10^3/uL (130-400); Red Blood Cell Count 4.36 10^6/uL (4.20-5.40); Red Cell Dist. Width 12.4 % (11.5-14.5)
== END ==
LOC: OIDL 08:58
PROVIDERS: ATTENDING PHYSICIAN Internal Medicine Hematology & Oncology; FAMILY PHYSICIAN Internal Medicine
DX: D69.3 Immune thrombocytopenic purpura (principal)
CPT/HCPCS: 36415; 85025

== ENCOUNTER → 2024-05-18 09:10 | Outpatient (REF) | payer MEDICARE, SELFPAY ==
[2024-05-18 09:19] LABS: % Eosinophils 1.7 % (0-6); % Immature Granulocytes 0.3 % (0-0.5); % Lymphocytes 16.3 % (20.5-51.1); % Monocytes 5.7 % (1.7-9.3); Absolute Basophils 0.1 10^3/uL (0-0.2); Absolute Eosinophils 0.2 10^3/uL (0-0.7); Absolute Lymphocytes 1.4 10^3/uL (1.2-3.4); Absolute Monocytes 0.5 10^3/uL (0.1-0.6); Absolute Neutrophils 6.5 10^3/uL (1.4-6.5); Hemoglobin 13.9 g/dL (12.0-16.0); Mean Corp Hgb Conc. 35.6 g/dL (33.0-37.0); Mean Corpuscular Volume 89.7 fL (81.0-99.0); Mean Platelet Volume 10.1 fL (7.4-10.4); Platelet Count 134 10^3/uL (130-400); Red Blood Cell Count 4.35 10^6/uL (4.20-5.40); Red Cell Dist. Width 12.2 % (11.5-14.5); White Blood Cell Count 8.7 10^3/uL (4.8-10.8)
== END ==
LOC: OIDL 09:10
PROVIDERS: ATTENDING PHYSICIAN Internal Medicine Hematology & Oncology; FAMILY PHYSICIAN Internal Medicine
DX: D69.3 Immune thrombocytopenic purpura (principal)
CPT/HCPCS: 36415; 85025

== ENCOUNTER → 2024-05-25 09:02 | Outpatient (REF) | payer MEDICARE, SELFPAY ==
[2024-05-25 09:40] LABS: % Eosinophils 1.7 % (0-6); % Immature Granulocytes 0.1 % (0-0.5); % Lymphocytes 17.8 % (20.5-51.1); % Monocytes 6.6 % (1.7-9.3); % Neutrophils 72.8 % (42.2-75.2); Absolute Basophils 0.1 10^3/uL (0-0.2); Absolute Eosinophils 0.2 10^3/uL (0-0.7); Absolute Lymphocytes 1.6 10^3/uL (1.2-3.4); Absolute Monocytes 0.6 10^3/uL (0.1-0.6); Absolute Neutrophils 6.4 10^3/uL (1.4-6.5); Hemoglobin 13.6 g/dL (12.0-16.0); Mean Corp Hgb Conc. 35.8 g/dL (33.0-37.0); Mean Corpuscular Hgb 31.9 pg (27.0-31.0); Mean Platelet Volume 10.2 fL (7.4-10.4); Platelet Count 89 10^3/uL (130-400); Red Blood Cell Count 4.27 10^6/uL (4.20-5.40); Red Cell Dist. Width 12.4 % (11.5-14.5); White Blood Cell Count 8.8 10^3/uL (4.8-10.8)
== END ==
LOC: OIDL 09:02
PROVIDERS: ATTENDING PHYSICIAN Internal Medicine Hematology & Oncology; FAMILY PHYSICIAN Internal Medicine
DX: D69.3 Immune thrombocytopenic purpura (principal)
CPT/HCPCS: 36415; 85025

== ENCOUNTER → 2024-06-01 08:57 | Outpatient (REF) | payer MEDICARE, SELFPAY ==
[2024-06-01 09:11] LABS: % Basophils 1.1 % (0-2); % Eosinophils 2.6 % (0-6); % Immature Granulocytes 0.1 % (0-0.5); % Lymphocytes 19.1 % (20.5-51.1); % Monocytes 5.4 % (1.7-9.3); % Neutrophils 71.7 % (42.2-75.2); Absolute Basophils 0.1 10^3/uL (0-0.2); Absolute Eosinophils 0.2 10^3/uL (0-0.7); Absolute Lymphocytes 1.6 10^3/uL (1.2-3.4); Absolute Monocytes 0.5 10^3/uL (0.1-0.6); Hematocrit 37.9 % (37.0-47.0); Hemoglobin 13.5 g/dL (12.0-16.0); Mean Corp Hgb Conc. 35.6 g/dL (33.0-37.0); Mean Corpuscular Hgb 32.1 pg (27.0-31.0); Mean Corpuscular Volume 90.2 fL (81.0-99.0); Mean Platelet Volume 10.2 fL (7.4-10.4); Platelet Count 108 10^3/uL (130-400); Red Cell Dist. Width 12.4 % (11.5-14.5); White Blood Cell Count 8.4 10^3/uL (4.8-10.8)
== END ==
LOC: OIDL 08:57
PROVIDERS: ATTENDING PHYSICIAN Internal Medicine Hematology & Oncology; FAMILY PHYSICIAN Internal Medicine
DX: D69.3 Immune thrombocytopenic purpura (principal)
CPT/HCPCS: 36415; 85025

== ENCOUNTER → 2024-06-08 08:59 | Outpatient (REF) | payer MEDICARE, SELFPAY ==
[2024-06-08 09:10] LABS: % Basophils 1.3 % (0-2); % Eosinophils 2.1 % (0-6); % Immature Granulocytes 0.3 % (0-0.5); % Lymphocytes 18.8 % (20.5-51.1); % Neutrophils 71.5 % (42.2-75.2); Absolute Basophils 0.1 10^3/uL (0-0.2); Absolute Eosinophils 0.2 10^3/uL (0-0.7); Absolute Lymphocytes 1.5 10^3/uL (1.2-3.4); Absolute Monocytes 0.5 10^3/uL (0.1-0.6); Absolute Neutrophils 5.7 10^3/uL (1.4-6.5); Hematocrit 37.6 % (37.0-47.0); Hemoglobin 13.4 g/dL (12.0-16.0); Mean Corp Hgb Conc. 35.6 g/dL (33.0-37.0); Mean Corpuscular Hgb 32.2 pg (27.0-31.0); Mean Corpuscular Volume 90.4 fL (81.0-99.0); Mean Platelet Volume 10.2 fL (7.4-10.4); Platelet Count 81 10^3/uL (130-400); Red Blood Cell Count 4.16 10^6/uL (4.20-5.40); Red Cell Dist. Width 12.5 % (11.5-14.5)
== END ==
LOC: OIDL 08:59
PROVIDERS: ATTENDING PHYSICIAN Internal Medicine Hematology & Oncology; FAMILY PHYSICIAN Internal Medicine
DX: D69.3 Immune thrombocytopenic purpura (principal); N39.0 Urinary tract infection, site not specified
CPT/HCPCS: 36415; 85025

== ENCOUNTER → 2024-06-15 09:20 | Outpatient (REF) | payer MEDICARE, SELFPAY ==
[2024-06-15 09:29] LABS: % Basophils 0.9 % (0-2); % Eosinophils 2.2 % (0-6); % Immature Granulocytes 0.2 % (0-0.5); % Lymphocytes 18.8 % (20.5-51.1); % Monocytes 6.5 % (1.7-9.3); % Neutrophils 71.4 % (42.2-75.2); Absolute Basophils 0.1 10^3/uL (0-0.2); Absolute Eosinophils 0.2 10^3/uL (0-0.7); Absolute Lymphocytes 1.8 10^3/uL (1.2-3.4); Absolute Monocytes 0.6 10^3/uL (0.1-0.6); Absolute Neutrophils 6.8 10^3/uL (1.4-6.5); Hematocrit 40.5 % (37.0-47.0); Hemoglobin 14.1 g/dL (12.0-16.0); Mean Corp Hgb Conc. 34.8 g/dL (33.0-37.0); Mean Corpuscular Hgb 31.6 pg (27.0-31.0); Mean Corpuscular Volume 90.8 fL (81.0-99.0); Mean Platelet Volume 10.2 fL (7.4-10.4); Platelet Count 123 10^3/uL (130-400); Red Blood Cell Count 4.46 10^6/uL (4.20-5.40); Red Cell Dist. Width 12.7 % (11.5-14.5); White Blood Cell Count 9.6 10^3/uL (4.8-10.8)
== END ==
LOC: OIDL 09:20
PROVIDERS: ATTENDING PHYSICIAN Internal Medicine Hematology & Oncology; FAMILY PHYSICIAN Internal Medicine
DX: D69.3 Immune thrombocytopenic purpura (principal)
CPT/HCPCS: 36415; 85025

== ENCOUNTER → 2024-06-22 08:55 | Outpatient (REF) | payer MEDICARE, SELFPAY ==
[2024-06-22 09:30] LABS: % Basophils 0.9 % (0-2); % Eosinophils 1.7 % (0-6); % Immature Granulocytes 0.2 % (0-0.5); % Lymphocytes 17.3 % (20.5-51.1); % Monocytes 5.9 % (1.7-9.3); Absolute Basophils 0.1 10^3/uL (0-0.2); Absolute Eosinophils 0.2 10^3/uL (0-0.7); Absolute Lymphocytes 1.6 10^3/uL (1.2-3.4); Absolute Monocytes 0.6 10^3/uL (0.1-0.6); Absolute Neutrophils 6.9 10^3/uL (1.4-6.5); Hematocrit 37.7 % (37.0-47.0); Hemoglobin 13.3 g/dL (12.0-16.0); Mean Corp Hgb Conc. 35.3 g/dL (33.0-37.0); Mean Corpuscular Volume 90.8 fL (81.0-99.0); Platelet Count 128 10^3/uL (130-400); Red Blood Cell Count 4.15 10^6/uL (4.20-5.40); Red Cell Dist. Width 12.6 % (11.5-14.5); White Blood Cell Count 9.3 10^3/uL (4.8-10.8)
== END ==
LOC: OIDL 08:55
PROVIDERS: ATTENDING PHYSICIAN Internal Medicine Hematology & Oncology; FAMILY PHYSICIAN Internal Medicine
DX: D69.3 Immune thrombocytopenic purpura (principal)
CPT/HCPCS: 36415; 85025

== ENCOUNTER → 2024-06-28 09:02 | Outpatient (REF) | payer MEDICARE, SELFPAY ==
[2024-06-28 09:11] LABS: % Eosinophils 1.9 % (0-6); % Immature Granulocytes 0.1 % (0-0.5); % Lymphocytes 20.2 % (20.5-51.1); % Monocytes 5.9 % (1.7-9.3); % Neutrophils 70.9 % (42.2-75.2); Absolute Basophils 0.1 10^3/uL (0-0.2); Absolute Eosinophils 0.2 10^3/uL (0-0.7); Absolute Lymphocytes 1.6 10^3/uL (1.2-3.4); Absolute Monocytes 0.5 10^3/uL (0.1-0.6); Absolute Neutrophils 5.6 10^3/uL (1.4-6.5); Hematocrit 39.8 % (37.0-47.0); Mean Corp Hgb Conc. 35.2 g/dL (33.0-37.0); Mean Corpuscular Volume 91.1 fL (81.0-99.0); Mean Platelet Volume 10.5 fL (7.4-10.4); Platelet Count 43 10^3/uL (130-400); Red Blood Cell Count 4.37 10^6/uL (4.20-5.40); Red Cell Dist. Width 12.5 % (11.5-14.5); White Blood Cell Count 7.9 10^3/uL (4.8-10.8)
== END ==
LOC: OIDL 09:02
PROVIDERS: ATTENDING PHYSICIAN Internal Medicine Hematology & Oncology; FAMILY PHYSICIAN Internal Medicine
DX: D69.3 Immune thrombocytopenic purpura (principal)
CPT/HCPCS: 36415; 85025

== ENCOUNTER → 2024-07-13 08:56 | Outpatient (REF) | payer MEDICARE, SELFPAY ==
[2024-07-13 09:33] LABS: % Basophils 0.8 % (0-2); % Eosinophils 1.8 % (0-6); % Immature Granulocytes 0.2 % (0-0.5); % Lymphocytes 14.4 % (20.5-51.1); % Monocytes 4.7 % (1.7-9.3); % Neutrophils 78.1 % (42.2-75.2); Absolute Basophils 0.1 10^3/uL (0-0.2); Absolute Eosinophils 0.2 10^3/uL (0-0.7); Absolute Lymphocytes 1.5 10^3/uL (1.2-3.4); Absolute Monocytes 0.5 10^3/uL (0.1-0.6); Absolute Neutrophils 8.1 10^3/uL (1.4-6.5); Hematocrit 39.4 % (37.0-47.0); Hemoglobin 13.9 g/dL (12.0-16.0); Mean Corp Hgb Conc. 35.3 g/dL (33.0-37.0); Mean Corpuscular Volume 90.8 fL (81.0-99.0); Mean Platelet Volume 9.9 fL (7.4-10.4); Platelet Count 85 10^3/uL (130-400); Red Blood Cell Count 4.34 10^6/uL (4.20-5.40); Red Cell Dist. Width 12.5 % (11.5-14.5); White Blood Cell Count 10.3 10^3/uL (4.8-10.8)
== END ==
LOC: OIDL 08:56
PROVIDERS: ATTENDING PHYSICIAN Internal Medicine Hematology & Oncology
DX: D69.3 Immune thrombocytopenic purpura (principal)
CPT/HCPCS: 85025

== ENCOUNTER → 2024-07-20 09:04 | Outpatient (REF) | payer MEDICARE, SELFPAY ==
[2024-07-20 09:22] LABS: % Eosinophils 2.1 % (0-6); % Immature Granulocytes 0.4 % (0-0.5); % Lymphocytes 19.4 % (20.5-51.1); % Monocytes 7.1 % (1.7-9.3); Absolute Basophils 0.1 10^3/uL (0-0.2); Absolute Eosinophils 0.2 10^3/uL (0-0.7); Absolute Lymphocytes 1.6 10^3/uL (1.2-3.4); Absolute Monocytes 0.6 10^3/uL (0.1-0.6); Absolute Neutrophils 5.7 10^3/uL (1.4-6.5); Hematocrit 37.7 % (37.0-47.0); Hemoglobin 13.8 g/dL (12.0-16.0); Mean Corp Hgb Conc. 36.6 g/dL (33.0-37.0); Mean Corpuscular Hgb 32.9 pg (27.0-31.0); Mean Corpuscular Volume 89.8 fL (81.0-99.0); Mean Platelet Volume 10.3 fL (7.4-10.4); Platelet Count 128 10^3/uL (130-400); Red Cell Dist. Width 12.3 % (11.5-14.5); White Blood Cell Count 8.1 10^3/uL (4.8-10.8)
== END ==
LOC: OIDL 09:04
PROVIDERS: ATTENDING PHYSICIAN Internal Medicine Hematology & Oncology
DX: D69.3 Immune thrombocytopenic purpura (principal)
CPT/HCPCS: 36415; 85025

== ENCOUNTER → 2024-07-27 09:03 | Outpatient (REF) | payer MEDICARE, SELFPAY ==
[2024-07-27 09:21] LABS: % Basophils 0.8 % (0-2); % Eosinophils 1.9 % (0-6); % Immature Granulocytes 0.2 % (0-0.5); % Lymphocytes 15.8 % (20.5-51.1); % Monocytes 6.1 % (1.7-9.3); % Neutrophils 75.2 % (42.2-75.2); Absolute Basophils 0.1 10^3/uL (0-0.2); Absolute Eosinophils 0.2 10^3/uL (0-0.7); Absolute Lymphocytes 1.6 10^3/uL (1.2-3.4); Absolute Monocytes 0.6 10^3/uL (0.1-0.6); Absolute Neutrophils 7.5 10^3/uL (1.4-6.5); Hematocrit 38.9 % (37.0-47.0); Hemoglobin 13.8 g/dL (12.0-16.0); Mean Corp Hgb Conc. 35.5 g/dL (33.0-37.0); Mean Corpuscular Volume 90.3 fL (81.0-99.0); Platelet Count 136 10^3/uL (130-400); Red Blood Cell Count 4.31 10^6/uL (4.20-5.40); Red Cell Dist. Width 12.4 % (11.5-14.5)
== END ==
LOC: OIDL 09:03
PROVIDERS: ATTENDING PHYSICIAN Internal Medicine Hematology & Oncology; FAMILY PHYSICIAN Internal Medicine
DX: D69.3 Immune thrombocytopenic purpura (principal)
CPT/HCPCS: 36415; 85025

== ENCOUNTER → 2024-08-03 09:03 | Outpatient (REF) | payer MEDICARE, SELFPAY ==
[2024-08-03 09:27] LABS: % Basophils 0.8 % (0-2); % Eosinophils 1.5 % (0-6); % Immature Granulocytes 0.2 % (0-0.5); % Lymphocytes 15.1 % (20.5-51.1); % Monocytes 4.9 % (1.7-9.3); % Neutrophils 77.5 % (42.2-75.2); Absolute Basophils 0.1 10^3/uL (0-0.2); Absolute Eosinophils 0.2 10^3/uL (0-0.7); Absolute Lymphocytes 1.6 10^3/uL (1.2-3.4); Absolute Monocytes 0.5 10^3/uL (0.1-0.6); Absolute Neutrophils 8.3 10^3/uL (1.4-6.5); Hematocrit 40.9 % (37.0-47.0); Hemoglobin 14.4 g/dL (12.0-16.0); Mean Corp Hgb Conc. 35.2 g/dL (33.0-37.0); Mean Corpuscular Hgb 31.7 pg (27.0-31.0); Mean Corpuscular Volume 90.1 fL (81.0-99.0); Mean Platelet Volume 9.9 fL (7.4-10.4); Platelet Count 199 10^3/uL (130-400); Red Blood Cell Count 4.54 10^6/uL (4.20-5.40); Red Cell Dist. Width 12.2 % (11.5-14.5); White Blood Cell Count 10.7 10^3/uL (4.8-10.8)
== END ==
LOC: OIDL 09:03
PROVIDERS: ATTENDING PHYSICIAN Internal Medicine Hematology & Oncology; FAMILY PHYSICIAN Internal Medicine
DX: D69.3 Immune thrombocytopenic purpura (principal)
CPT/HCPCS: 36415; 85025

== ENCOUNTER → 2024-08-10 08:59 | Outpatient (REF) | payer MEDICARE, SELFPAY ==
[2024-08-10 09:12] LABS: % Basophils 0.9 % (0-2); % Eosinophils 2.2 % (0-6); % Immature Granulocytes 0.1 % (0-0.5); % Monocytes 5.3 % (1.7-9.3); % Neutrophils 73.5 % (42.2-75.2); Absolute Basophils 0.1 10^3/uL (0-0.2); Absolute Eosinophils 0.2 10^3/uL (0-0.7); Absolute Lymphocytes 1.7 10^3/uL (1.2-3.4); Absolute Monocytes 0.5 10^3/uL (0.1-0.6); Hemoglobin 14.1 g/dL (12.0-16.0); Mean Corp Hgb Conc. 35.3 g/dL (33.0-37.0); Mean Corpuscular Hgb 31.3 pg (27.0-31.0); Mean Corpuscular Volume 88.9 fL (81.0-99.0); Mean Platelet Volume 10.1 fL (7.4-10.4); Platelet Count 104 10^3/uL (130-400); Red Cell Dist. Width 12.1 % (11.5-14.5); White Blood Cell Count 9.5 10^3/uL (4.8-10.8)
== END ==
LOC: OIDL 08:59
PROVIDERS: ATTENDING PHYSICIAN Internal Medicine Hematology & Oncology; FAMILY PHYSICIAN Internal Medicine
DX: D69.3 Immune thrombocytopenic purpura (principal)
CPT/HCPCS: 36415; 85025

== ENCOUNTER → 2024-08-17 08:59 | Outpatient (REF) | payer MEDICARE, SELFPAY ==
[2024-08-17 09:33] LABS: % Basophils 1.1 % (0-2); % Eosinophils 1.7 % (0-6); % Immature Granulocytes 0.1 % (0-0.5); % Monocytes 5.6 % (1.7-9.3); % Neutrophils 72.5 % (42.2-75.2); Absolute Basophils 0.1 10^3/uL (0-0.2); Absolute Eosinophils 0.1 10^3/uL (0-0.7); Absolute Lymphocytes 1.6 10^3/uL (1.2-3.4); Absolute Monocytes 0.5 10^3/uL (0.1-0.6); Absolute Neutrophils 6.1 10^3/uL (1.4-6.5); Hematocrit 38.8 % (37.0-47.0); Hemoglobin 13.8 g/dL (12.0-16.0); Mean Corp Hgb Conc. 35.6 g/dL (33.0-37.0); Mean Corpuscular Hgb 31.1 pg (27.0-31.0); Mean Corpuscular Volume 87.4 fL (81.0-99.0); Mean Platelet Volume 10.5 fL (7.4-10.4); Platelet Count 69 10^3/uL (130-400); Red Blood Cell Count 4.44 10^6/uL (4.20-5.40); White Blood Cell Count 8.4 10^3/uL (4.8-10.8)
== END ==
LOC: OIDL 08:59
PROVIDERS: ATTENDING PHYSICIAN Internal Medicine Hematology & Oncology; FAMILY PHYSICIAN Internal Medicine
DX: D69.3 Immune thrombocytopenic purpura (principal)
CPT/HCPCS: 36415; 85025

== ENCOUNTER → 2024-08-24 08:55 | Outpatient (REF) | payer MEDICARE, SELFPAY ==
[2024-08-24 09:13] LABS: % Basophils 0.7 % (0-2); % Eosinophils 0.7 % (0-6); % Immature Granulocytes 0.3 % (0-0.5); % Lymphocytes 10.6 % (20.5-51.1); % Monocytes 4.9 % (1.7-9.3); % Neutrophils 82.8 % (42.2-75.2); Absolute Basophils 0.1 10^3/uL (0-0.2); Absolute Eosinophils 0.1 10^3/uL (0-0.7); Absolute Lymphocytes 1.6 10^3/uL (1.2-3.4); Absolute Monocytes 0.7 10^3/uL (0.1-0.6); Absolute Neutrophils 12.5 10^3/uL (1.4-6.5); Hematocrit 40.7 % (37.0-47.0); Hemoglobin 14.4 g/dL (12.0-16.0); Mean Corp Hgb Conc. 35.4 g/dL (33.0-37.0); Mean Corpuscular Hgb 31.5 pg (27.0-31.0); Mean Corpuscular Volume 89.1 fL (81.0-99.0); Mean Platelet Volume 9.3 fL (7.4-10.4); Platelet Count 108 10^3/uL (130-400); Red Blood Cell Count 4.57 10^6/uL (4.20-5.40); Red Cell Dist. Width 12.1 % (11.5-14.5); White Blood Cell Count 15.1 10^3/uL (4.8-10.8)
[2024-08-24 11:26] LABS: Urine Albumin Trace (Neg - Trace); Urine Bilirubin Negative (Negative); Urine Character Clear (Clear); Urine Color Yellow; Urine Glucose Negative (Negative); Urine Ketone Negative (Negative); Urine Leukocyte 2+ (Negative); Urine Nitrite Negative (Negative); Urine Occult Blood 2+ (Negative); Urine Urobilinogen Negative (Neg - 1+)
[2024-08-24 12:19] LABS: Urine Mucus Moderate
[2024-08-24 12:20] LABS: Urine Amorphous Seen
[2024-08-24 12:21] LABS: Urine White Cell 16-20 /HPF (0-5)
[2024-08-24 12:24] LABS: Urine Bacteria Few (Negative)
== END ==
LOC: OIDL 08:55
PROVIDERS: ATTENDING PHYSICIAN Internal Medicine Hematology & Oncology
DX: D69.3 Immune thrombocytopenic purpura (principal); N39.0 Urinary tract infection, site not specified
CPT/HCPCS: 36415; 81003; 81015; 85025; 87086

== ENCOUNTER 2024-08-25 11:26 | Emergency (ER) | payer MEDICARE, SELFPAY ==
[2024-08-25 11:37] VITALS: BP 171/93
--- NOTE | 2024-08-25 12:30 | EDRN ---
Pt states she was seen at [place] yesterday and had an elevated WBC and urine spec was taken and sent to lab and she was called and informed that she has an UTI. Pt states she has not symptoms yesterday but symptoms of sitting and having pain of
2/10 and when voiding today burning pain at 10/10. Urine spec supplied appeared bloody.
--- NOTE | 2024-08-25 12:41 | ED.GENMED ---
History of Present Illness
General
Chief Complaint: Urinary Symptoms
Time Seen by Provider: 08/25/24 12:35
History of Present Illness
History of Present Illness:
Patient is an 83-year-old female with past medical history of vertigo, ITP, anxiety, depression, and history of prior urinary tract infections, here today with concern for urinary tract infection. She reports undergoing weekly blood work at her
super[employer] office yesterday and she was found to have an elevated white blood cell count. Urinalysis was then performed which was noted to be abnormal. Patient reports she was started on Macrobid solution but pharmacy did not have this in stock.
Patient initially had no symptoms but yesterday developed dysuria and slight suprapubic discomfort. No fevers or vomiting. No back pain. She has had UTIs previously and feels symptoms today are similar. Office was not able to change her script.
Past History
Past History
ED Past Medical History: Other (ITP, glaucoma, anxiety)
ED Past Surgical History: None
Social History
Tobacco: Non-smoker
Alcohol: None
Drug: None
Living: with family
Employment: Retired
Review of Systems
Review of Systems
All Other Systems: ROS reviewed and negative except as documented in HPI and ROS
Phy Exam
Physical Exam
Physical Exam:
GENERAL: Alert , in no apparent distress
EYE: pupils equal and reactive
NECK: Supple, no significant adenopathy.
ENT: o/p clr, mmm.
CARDIAC: Regular rate and rhythm .
LUNGS: Clear breath sounds bilaterally, no acute respiratory distress, no wheezes/rales/rhonchi
ABDOMEN: Soft, without focal tenderness, no r/g, no cvat
NEUROLOGICAL: Alert and oriented, no focal neuro deficits
SKIN: Warm and dry, skin intact.
MUSCULOSKELETAL: No edema, well perfused.
PSYCH: Normal and appropriate interaction.
Course
Orders/Labs/Results
Orders:
Orders
08/25/24 12:44
Urinalysis Reflex To Culture Urgent
Date Specimen was Collected: 08/25/24
Time Specimen was Collected: 12:43
Urine Microscopic Reflex Cult Urgent
Urine Culture Urgent
KHALIF Source: U
Specimen Description:
Date Specimen was Collected: 08/25/24
Time Specimen was Collected: 12:43
08/25/24 13:13
Basic Metabolic Panel Urgent
Complete Blood Count/With Diff Urgent
Abnormal Lab Results
08/25/24 08/25/24
12:44 13:13
WBC 14.8 H 10^3/uL
(4.8-10.8)
RBC 3.96 L 10^6/uL
(4.20-5.40)
Hct 35.3 L %
(37.0-47.0)
MCH 32.1 H pg
(27.0-31.0)
Plt Count 94 L 10^3/uL
(130-400)
Abs Immat Gran (auto) 0.1 H 10^3/uL
(0-0.05)
Absolute Neuts (auto) 12.9 H 10^3/uL
(1.4-6.5)
Absolute Lymphs (auto) 1.1 L 10^3/uL
(1.2-3.4)
Absolute Monos (auto) 0.7 H 10^3/uL
(0.1-0.6)
Neutrophils % 86.7 H %
(42.2-75.2)
Lymphocytes % 7.3 L %
(20.5-51.1)
Sodium 132 L mmol/L
(135-145)
Chloride 94 L mmol/L
(98-107)
BUN 18 H mg/dl
(7-17)
Creatinine 1.2 H mg/dL
(0.6-1.0)
Glucose 108 H mg/dl
(70-99)
Urine Ketones Trace A
(Negative)
Ur Occult Blood Reflex 4+ A
(Negative)
Urine Nitrite (Reflex) Positive A
(Negative)
Urine Bilirubin 1+ A
(Negative)
Leukocyte Esterase Rfl 2+ A
(Negative)
Urine RBC >100 A /HPF
(0-2)
Urine WBC (Reflex) >100 A /HPF
(0-5)
Urine Bacteria (Reflex) Many A
(Negative)
Urine Albumin (Reflex) 3+ A
(Neg - Trace)
08/25/24 13:13
08/25/24 13:13
Vital Signs
Initial and Last Documented VS:
Initial Vital Signs
Temp Pulse Resp BP Pulse Ox
98.8 F 90 18 171/93 99
08/25/24 11:37 08/25/24 11:37 08/25/24 11:37 08/25/24 11:37 08/25/24 11:37
Last Documented Vital Signs
Temp Pulse Resp BP Pulse Ox
98.8 F 90 18 171/93 99
08/25/24 11:37 08/25/24 11:37 08/25/24 11:37 08/25/24 11:37 08/25/24 11:37
MDM/Problems Addressed
Differential Diagnosis Includes:
Patient is an 83-year-old female with past medical history of vertigo, ITP, anxiety, depression, and history of prior urinary tract infections, here today with concern for urinary tract infection. Overall, patient appears well. She is mildly
hypertensive here. Physical examination described above. Given symptoms/findings, will begin with screening labs and a urinalysis.
08/25/2024 14:28: Screening labs reveal a leukocytosis to 14.8. Platelet count decreased at 94,000 which is grossly consistent with the patient's baseline. Sodium 132, chloride 94, and BUN 18/creatinine 1.2 which is grossly consistent with the
patient's baseline. Urinalysis consistent with infection. We will send urine culture. Patient appears well overall and appears suitable for outpatient antibiotic therapy. No findings of a complicated urinary tract infection or pyelonephritis.
Will provide therapy with Macrobid and recommend supportive measures and close follow-up. Of note, patient not able to swallow pills. I did contact the patient's pharmacy and they do advise that the Macrobid capsule can be dissolved in water.
Patient made aware. All questions answered. Stable for discharge.
*Critical Care Note
Total Time (30-74mins, 75-104mins- exclusive of procedures): Not Applicable
ED Attending Note
-
Portions of this chart may have been created with voice recognition software.� Occasional wrong word or��sound alike� substitutions may have occurred due to the inherent limitations of voice recognition software.
Discharge Plan
Departure
Patient Disposition: Home (Routine Discharge)
Date of Disposition: 08/25/24
Time of Disposition: 14:23
Patient with high blood pressure during this ER visit?: Yes
Condition: Good
Covid-19: Not Applicable
Discharge Problem:
Urinary tract infection
Instructions: Urinary Tract Infection, Adult (DC)
Prescriptions:
New
nitrofurantoin monohyd/m-cryst [Macrobid] 100 mg capsule
100 mg PO Q12H 5 Days Qty: 10 0RF
Rx Instructions:
Open capsule and dissolve in water or apple sauce
No Action
dorzolamide-timolol [Cosopt] 22.3-6.8 mg/mL Drops
1 drp BOTH EYES AMHS Qty: 0
lorazepam 1 MG tablet
1 mg PO QID
Suprax 500 mg/5 mL suspension for reconstitution
400 mg PO Q24H 7 Days Qty: 28 0RF
brimonidine 0.2 % drops
1 drp BOTH EYES BID
Alphagan P 0.1 % drops
1 drp BOTH EYES BID
acetaminophen [Tylenol] 325 mg Tablet
325 mg PO TID
Referrals:
Alexandr Campos MD [Family Provider] - Follow up in 5-7 days
Activity Restrictions/Additional Instructions:
You were seen today for evaluation of a urinary tract infection.
Begin taking the oral antibiotics Macrobid as directed.
Follow-up with your doctor within the next 5 to 7 days for close reevaluation.
Return for any new, worsening, or concerning symptoms.
Interventions
Interventions:
*Risk Screen - Suicide Last Done: 08/25/24 12:30
*General Assessment Last Done: 08/25/24 12:30
*Neglect/Abuse Screening Last Done: 08/25/24 12:30
ED- Fall Risk Assessment Last Done: 08/25/24 12:30
*ED COVID-19 Vaccine History Last Done: 08/25/24 12:30
ED-Female Genitourinary Assessment Last Done: 08/25/24 12:30
Discharge Date and Time
Print Language: EGYPTIAN
--- NOTE | 2024-08-25 12:53 | EDRN ---
Arnol Love PA in room w/ pt at this time.
[2024-08-25 13:17] LABS: Urine Albumin 3+ (Neg - Trace); Urine Bilirubin 1+ (Negative); Urine Character Very Cloudy (Clear); Urine Color Brown; Urine Glucose Negative (Negative); Urine Ketone Trace (Negative); Urine Leukocyte 2+ (Negative); Urine Nitrite Positive (Negative); Urine Occult Blood 4+ (Negative); Urine Specific Gravity 1.025 (<1.030); Urine Urobilinogen 1+ (Neg - 1+)
--- NOTE | 2024-08-25 13:17 | EDRN ---
Labs drawn and sent at this time.
--- NOTE | 2024-08-25 13:27 | EDRN ---
Pt moved to RP area at this time by Dai ESPINAL. Dai RN received report at this time from this RN.
[2024-08-25 13:30] LABS: % Basophils 0.7 % (0-2); % Eosinophils 0.6 % (0-6); % Immature Granulocytes 0.3 % (0-0.5); % Lymphocytes 7.3 % (20.5-51.1); % Monocytes 4.4 % (1.7-9.3); % Neutrophils 86.7 % (42.2-75.2); Absolute Basophils 0.1 10^3/uL (0-0.2); Absolute Eosinophils 0.1 10^3/uL (0-0.7); Absolute Immature Granulocytes 0.1 10^3/uL (0-0.05); Absolute Lymphocytes 1.1 10^3/uL (1.2-3.4); Absolute Monocytes 0.7 10^3/uL (0.1-0.6); Absolute Neutrophils 12.9 10^3/uL (1.4-6.5); Hematocrit 35.3 % (37.0-47.0); Hemoglobin 12.7 g/dL (12.0-16.0); Mean Corpuscular Hgb 32.1 pg (27.0-31.0); Mean Corpuscular Volume 89.1 fL (81.0-99.0); Mean Platelet Volume 9.9 fL (7.4-10.4); Nucleated Red Blood Cells % 0 %; Platelet Count 94 10^3/uL (130-400); Red Blood Cell Count 3.96 10^6/uL (4.20-5.40); Red Cell Dist. Width 12.4 % (11.5-14.5); White Blood Cell Count 14.8 10^3/uL (4.8-10.8)
[2024-08-25 13:38] LABS: Blood Urea Nitrogen 18 mg/dl (7-17); Calcium 8.7 mg/dl (8.4-10.2); Carbon Dioxide 30 mmol/L (22-30); Chloride 94 mmol/L (98-107); Glucose 108 mg/dl (70-99); Sodium 132 mmol/L (135-145); eGFR 45.19
[2024-08-25 13:45] LABS: Urine Bacteria Many (Negative); Urine Red Blood Cell >100 /HPF (0-2); Urine White Cell >100 /HPF (0-5)
[2024-08-25 13:47] LABS: Urine Squamous Cell SEEN /LPF (Few)
[2024-08-25 15:11] VITALS: BP 170/90
== END 2024-08-25 15:13 | disposition home or self-care (01) ==
LOC: EMR 11:26
PROVIDERS: Physician Assistant; EMERGENCY PHYSICIAN Emergency Medicine; FAMILY PHYSICIAN Internal Medicine
DX: N39.0 Urinary tract infection, site not specified (principal); R03.0 Elevated blood-pressure reading, without diagnosis of hypertension; F41.9 Anxiety disorder, unspecified; F32.A Depression, unspecified
CPT/HCPCS: 99283; 80048; 81003; 81015; 85025; 87077; 87086; 87186

== ENCOUNTER → 2024-08-30 15:24 | Outpatient (REF) | payer MEDICARE, SELFPAY ==
[2024-08-31 16:21] LABS: Urine Albumin 1+ (Neg - Trace); Urine Bilirubin Negative (Negative); Urine Character Clear (Clear); Urine Color Yellow; Urine Glucose Negative (Negative); Urine Ketone Negative (Negative); Urine Leukocyte 3+ (Negative); Urine Nitrite Negative (Negative); Urine Occult Blood 1+ (Negative); Urine Urobilinogen Negative (Neg - 1+)
[2024-08-31 16:46] LABS: Urine Squamous Cell 16-20 /LPF (Few)
[2024-08-31 16:47] LABS: Urine Bacteria Few (Negative); Urine Red Blood Cell 0-2 /HPF (0-2); Urine White Cell 21-25 /HPF (0-5)
== END ==
LOC: CLAB 15:24
PROVIDERS: ATTENDING PHYSICIAN Physician Assistant
DX: N39.0 Urinary tract infection, site not specified (principal)
CPT/HCPCS: 81003; 81015; 87086

== ENCOUNTER → 2024-08-31 09:11 | Outpatient (REF) | payer MEDICARE, SELFPAY ==
[2024-08-31 09:32] LABS: % Basophils 0.9 % (0-2); % Immature Granulocytes 0.1 % (0-0.5); % Lymphocytes 12.3 % (20.5-51.1); % Monocytes 5.9 % (1.7-9.3); % Neutrophils 78.8 % (42.2-75.2); Absolute Basophils 0.1 10^3/uL (0-0.2); Absolute Eosinophils 0.2 10^3/uL (0-0.7); Absolute Lymphocytes 1.3 10^3/uL (1.2-3.4); Absolute Monocytes 0.6 10^3/uL (0.1-0.6); Absolute Neutrophils 8.1 10^3/uL (1.4-6.5); Hematocrit 39.4 % (37.0-47.0); Hemoglobin 14.1 g/dL (12.0-16.0); Mean Corp Hgb Conc. 35.8 g/dL (33.0-37.0); Mean Corpuscular Hgb 31.5 pg (27.0-31.0); Mean Corpuscular Volume 87.9 fL (81.0-99.0); Mean Platelet Volume 9.8 fL (7.4-10.4); Platelet Count 155 10^3/uL (130-400); Red Blood Cell Count 4.48 10^6/uL (4.20-5.40); Red Cell Dist. Width 12.2 % (11.5-14.5); White Blood Cell Count 10.3 10^3/uL (4.8-10.8)
== END ==
LOC: OIDL 09:11
PROVIDERS: ATTENDING PHYSICIAN Internal Medicine Hematology & Oncology
DX: D69.3 Immune thrombocytopenic purpura (principal)
CPT/HCPCS: 36415; 85025

== ENCOUNTER 2024-09-04 10:54 | Inpatient (IN) | payer MEDICARE, SELFPAY ==
[2024-09-04] VITALS (12 sets, daily range): BP systolic 91–109; BP diastolic 43–66; BMI 19.4; BMI 20.4
[2024-09-04 06:21] LABS: Hematocrit 48.2 % (37.0-47.0); Hemoglobin 16.8 g/dL (12.0-16.0); Mean Corp Hgb Conc. 34.9 g/dL (33.0-37.0); Mean Corpuscular Hgb 31.2 pg (27.0-31.0); Mean Corpuscular Volume 89.6 fL (81.0-99.0); Mean Platelet Volume 11.1 fL (7.4-10.4); Platelet Count 159 10^3/uL (130-400); Red Blood Cell Count 5.38 10^6/uL (4.20-5.40); Red Cell Dist. Width 12.7 % (11.5-14.5); White Blood Cell Count 33.2 10^3/uL (4.8-10.8)
[2024-09-04 06:34] LABS: AST (SGOT) 37 U/L (14-36); Albumin 4.4 g/dl (3.5-5.0); Alkaline Phosphatase 74 U/L (38-126); Blood Urea Nitrogen 28 mg/dl (7-17); Carbon Dioxide 15 mmol/L (22-30); Chloride 97 mmol/L (98-107); Estimated Creatinine Clearance 20 ml/min; Glucose 202 mg/dl (70-99); Potassium 4.8 mmol/L (3.5-5.1); Sodium 132 mmol/L (135-145); Total Bilirubin 1.6 mg/dl (0.2-1.3); Total Protein 6.4 g/dl (6.3-8.2); eGFR 24.48
[2024-09-04 06:39] LABS: Lactic Acid 7.3 mmol/L (0.7-2.0)
[2024-09-04 06:48] LABS: ALT (SGPT) 31 U/L (0-35)
--- NOTE | 2024-09-04 07:06 | EDRN ---
Dr. Gauthier currently at the pts bedside
[2024-09-04 07:26] LABS: Absolute Neutrophils -Man Diff 31.5 10^3/uL (1.4-6.5); Band Neutrophils 37 % (0-3); Lymphocytes 4 % (20-51); Monocytes 1 % (2-9); Normal RBC Morphology Yes; Platelets Checked Yes; Segmented Neutrophils 58 % (42-75); Total Cells Counted 100; Toxic Granulation 1+
[2024-09-04] MEDS: NSS 1500 IV (07:31)
--- NOTE | 2024-09-04 07:50 | EDRN ---
per Dr. Gauthier the pt was straight cathed and urine was collected and sent, the pt stated that she was uncomfortable and wanted to be repositioned, this RN and Ayesha RN repositioned the pt and the pt stated to this RN, 'What do i have to do if i
have to pee i don't want to get up', this RN educated the pt on the use of the pure wick and the pt agreed to use it, this RN and Ayesha RN placed a brent and a brief under the pt and placed the pure wick, the pt then stated that she was still
uncomfortable and wanted to turn on her right side, this RN and Ayesha RN assisted the pt with turning onto her right side, IVF Bolus hung and running, the pt and the pts daughter were updated on the plan of care, when this RN received the pt from
the previous cnc machinist 2nd shift nurse Cele ESPINAL the pt was on RA and Sp02 was 90%, the pt had no c/o chest pain, no c/o SOB, this RN notified Dr. Gauthier and placed the pt on 2L NC and Sp02 came up to 100%, will continue to monitor the pt closely
[2024-09-04 08:25] LABS: Urine Albumin 3+ (Neg - Trace); Urine Bilirubin Negative (Negative); Urine Character Slightly Cloudy (Clear); Urine Color Yellow; Urine Glucose Negative (Negative); Urine Ketone 1+ (Negative); Urine Leukocyte 3+ (Negative); Urine Nitrite Negative (Negative); Urine Occult Blood 4+ (Negative); Urine Urobilinogen Negative (Neg - 1+)
--- NOTE | 2024-09-04 09:19 | ED.GENMED ---
History of Present Illness
General
Chief Complaint: Urinary Symptoms
Source: patient
Exam Limitations: none
Time Seen by Provider: 09/04/24 06:49
Nursing documentation reviewed up to this point in time: agreed with
History of Present Illness
History of Present Illness:
83-year-old female with UTI, generalized weakness. Patient feels she is worsening.
Past History
Past History
ED Past Medical History: Other (ITP, glaucoma, anxiety)
ED Past Surgical History: None
Social History
Tobacco: Non-smoker
Alcohol: None
Drug: None
Living: with family
Employment: Retired
Review of Systems
Review of Systems
Allergies reviewed?: Yes
Constitutional: Reports no symptoms
EENT: Reports no symptoms
Respiratory: Reports no symptoms
Cardiac: Reports no symptoms
ABD/GI: Reports no symptoms
: Reports no symptoms
Musculoskeletal: Reports no symptoms
Skin: Reports no symptoms
Neurological: Reports weakness
Endocrine: Reports no symptoms
Hematologic/Lymphatic: Reports no symptoms
Psychiatric: Reports no symptoms
Phy Exam
Physical Exam
Physical Exam:
Physical Exam
General: no apparent distress, not acutely ill
Neck: supple. no meningeal signs. normal posterior pharynx
Heart: s1/s2 tachycardia, no murmur. equal radial
pulses.
HEENT: Pupils equal round reactive to light, EOMI
Lungs: no acute respiratory distress. clear bilaterally
Abdomen: normal bowel sounds. not tender. no CVAT
Neuro: alert and oriented. no focal neurological deficits cranial nerves II through XII intact
Skin: no rash
Psychiatric: well kept. interactive and cooperative
Extremities: no edema. no calf tenderness. negative homans. good distal pulses
Course
Orders/Labs/Results
Orders:
Orders
09/04/24 05:51
Complete Blood Count/With Diff Urgent
Comprehensive Metabolic Panel Urgent
Lactic Acid Q4H
Comment: ON ICE, CANCEL 2ND ORDER IF FIRST LACTIC ACID LEVEL <2
Manual Differential Urgent
09/04/24 Breakfast
Regular
At Your Request: Full Participation
09/04/24 07:26
0.9% Sodium Chloride 1000 ml [Nss] 1,500 ml IV BOLUS
09/04/24 07:27
Straight cath- Treatment ONCE
09/04/24 07:43
Osmolality, Random Urine Urgent
Date Specimen was Collected: 09/04/24
Time Specimen was Collected: 07:28
Comment: ADD ON
Urinalysis Reflex To Culture Urgent
Date Specimen was Collected: 09/04/24
Time Specimen was Collected: 07:28
Urine Microscopic Reflex Cult Urgent
Urine Sodium Urgent
Date Specimen was Collected: 09/04/24
Time Specimen was Collected: 07:28
Comment: ADD ON
Urine Culture Urgent
KHALIF Source: U
Specimen Description:
Date Specimen was Collected: 09/04/24
Time Specimen was Collected: 07:28
09/04/24 09:13
CefTRIAXone [Rocephin] 1,000 mg IV NOW STA
09/04/24 09:25
CR Chest - 2 Views Urgent
Comment:
Reason For Exam: leucocytosis
09/04/24 09:39
Lactic Acid Q4H
Comment: ON ICE, CANCEL 2ND ORDER IF FIRST LACTIC ACID LEVEL <2
Blood Culture Q30M
KHALIF Source: Blood/Venous
Specimen Description:
Blood Culture Q30M
KHALIF Source: Blood/Venous
Specimen Description:
09/04/24 10:16
Abdomen/Pelvis wo Contrast CT [CT Abd/pelvis Wo Iv Cont] Urgent
Comment: Also look at hips to rule out fracture
Reason For Exam: UTI,[place],R/O Stone, obstruction,Also look at hips
Cervical Spine wo Contrast CT [CT Cervical Spine W/o Iv Contr] Urgent
Comment:
Reason For Exam: fall
Head wo Contrast CT [CT Head W/o Iv Contrast] Urgent
Comment:
Reason For Exam: fall
09/04/24 10:17
Acetaminophen [Tylenol Oral Solution] 1,000 mg PO NOW STA
09/04/24 10:18
Admit/Transfer Patient As Directed
Co-Sign Provider:
Level of Care: Inpatient admission
Assign to:: Medical/Surgical
Physician / Group: Hospitalist
Diagnosis: [place],UTI
Reason for Hospitalization: [place],UTI
Expected length of stay greater than two midnights?: Yes
ELOS- Estimated Length of Stay in days: 2
I certify the patient meets the requirements for IP care: Yes
PRN Pain Medication Management As Directed
May give lesser potent ordered pain med per pt: Yes
preference::
Protocol:: Medication orders for pain may be administered in a
manner that supports deferring to patient preference
when the pt is:
- Requesting an ordered lesser potent pain medication.
Least to most potent pain medications are defined
as: acetaminophen < NSAID < tramadol < opioids
(morphine, oxycodone, hydromorphone).
- Requesting a lesser dose of the same medication IF
ORDERED.
- Requesting a less intrusive route of administration
if both routes are prescribed by the provider (PO <
IV).
09/04/24 10:19
Code Status As Directed
Resuscitation Status: Full Code
09/04/24 10:28
Add On- LAB Routine
Tests Added?: urine osm and urine sod
09/04/24 10:30
0.9% Sodium Chloride 1000 ml [Nss] 1,000 ml IV 100 mls/hr
09/04/24 11:00
Sterile Water For Inj [Sterile Water For Injection 1000 ml] 1,000 ml Sodium Chloride 38.5 meq Sodium Bicarbonate 100 meq IV 100 mls/hr
09/04/24 13:38
Bisacodyl [Dulcolax] 10 mg RECTAL [id number] PRN
Brimonidine [Alphagan 0.2% Eye Drops] 1 drop BOTH EYES BID
Calcium 200mg(Ca. Carb. 500mg) [Tums Chewable Tablet] 200 mg PO QIDPRN PRN
CefTRIAXone [Rocephin] 1,000 mg IV Q24H
Docusate W/Senna [Senokot-S] 1 tablet PO BIDPRN PRN
Lorazepam [Ativan] 1 mg PO Q6
Polyethylene Glycol Powder [Miralax] 17 grams PO DAILYPRN PRN
Timolol Maleate/Dorzolam HCl [Cosopt Eye Drops] 1 drop BOTH EYES BID
09/04/24 13:38
INFECTIOUS DISEASE CONSULT Routine
Consulting Provider: Vaishali Navarro
Was physician already notified: Yes
Reason for consult: UTI
Activity As Directed
Activity Level: Ambulate
Pneumatic Compression Sleeves As Directed
Type: Knee high
Vital Signs As Directed
Frequency: Per unit guidelines
DX Deep Vein Thrombosis Video Routine
09/04/24 13:53
Lactate Level [Lactic Acid] Routine
09/05/24 06:00
Basic Metabolic Panel IN AM
Complete Blood Count/No Diff IN AM
TSH IN AM
Vitamin B12 IN AM
09/07/24 08:00
Nplate 1 dose SC TH
Abnormal Lab Results
09/04/24 09/04/24 09/04/24
05:51 07:43 09:39
WBC 33.2 H 10^3/uL
(4.8-10.8)
Hgb 16.8 H g/dL
(12.0-16.0)
Hct 48.2 H %
(37.0-47.0)
MCH 31.2 H pg
(27.0-31.0)
MPV 11.1 H fL
(7.4-10.4)
Abs Neuts (Manual) 31.5 H 10^3/uL
(1.4-6.5)
Band Neutrophils 37 H %
(0-3)
Lymphocytes (Manual) 4 L %
(20-51)
Monocytes (Manual) 1 L %
(2-9)
Sodium 132 L mmol/L
(135-145)
Chloride 97 L mmol/L
(98-107)
Carbon Dioxide 15 L mmol/L
(22-30)
BUN 28 H mg/dl
(7-17)
Creatinine 2.0 H mg/dL
(0.6-1.0)
Glucose 202 H mg/dl
(70-99)
Lactic Acid 7.3 H* mmol/L 3.2 H mmol/L
(0.7-2.0) (0.7-2.0)
Total Bilirubin 1.6 H mg/dl
(0.2-1.3)
AST 37 H U/L
(14-36)
Urine Ketones 1+ A
(Negative)
Ur Occult Blood Reflex 4+ A
(Negative)
Leukocyte Esterase Rfl 3+ A
(Negative)
Urine RBC >100 A /HPF
(0-2)
Urine WBC (Reflex) 30-40 A /HPF
(0-5)
Urine Bacteria (Reflex) Many A
(Negative)
Urine Sodium 21 L mmol/L
(30-90)
Urine Albumin (Reflex) 3+ A
(Neg - Trace)
09/04/24 05:51
09/04/24 05:51
Vital Signs
Initial and Last Documented VS:
Initial Vital Signs
Temp Pulse Resp BP Pulse Ox
97.9 F 104 18 107/64 95
09/04/24 05:37 09/04/24 05:37 09/04/24 05:37 09/04/24 05:37 09/04/24 05:37
Last Documented Vital Signs
Temp Pulse Resp BP Pulse Ox
98.5 F 110 17 96/43 97
09/04/24 07:19 09/04/24 09:31 09/04/24 09:31 09/04/24 09:31 09/04/24 09:31
MDM/Problems Addressed
Differential Diagnosis Includes:
UTI, sepsis
MDM/Problems Addressed:
83-year-old female with UTI, sepsis, leukocytosis, history of ITP. Admit to hospitalist. IV ceftriaxone given. IV fluids given
*Pulse Oximetry
Patient hypoxic: no
*Critical Care Note
Total Time (30-74mins, 75-104mins- exclusive of procedures): Not Applicable
Patient Management
Social determinants of health affecting care: Living situation and Strong social support
Discussion with other providers: Hospitalist
Escalation/DeEscalation of care consider admission/obs:
Admit indicated
ED Attending Note
-
Portions of this chart may have been created with voice recognition software.� Occasional wrong word or��sound alike� substitutions may have occurred due to the inherent limitations of voice recognition software.
Discharge Plan
Departure
Patient Disposition: Admit
Date of Disposition: 09/04/24
Time of Disposition: 09:11
Admit to: IMU
Presentation/result/management discussed w/ accepting MD/DO: Hospitalist
Patient with high blood pressure during this ER visit?: Yes
Condition: Fair
Discharge Problem:
Urinary tract infection, Sepsis
Interventions
Interventions:
*Risk Screen - Suicide Last Done: 09/04/24 05:37
*General Assessment Last Done: 09/04/24 05:37
*Neglect/Abuse Screening Last Done: 09/04/24 05:37
ED- Fall Risk Assessment Last Done: 09/04/24 07:19
*ED COVID-19 Vaccine History Last Done: 09/04/24 05:47
ED-Female Genitourinary Assessment Last Done: 09/04/24 07:19
--- NOTE | 2024-09-04 09:20 | HPS.HSE ---
Family Physician
-
Family Physician: Alexandr Campos
Chief Complaint
-
Urinary symptoms
History of Present Illness
83-year-old female with history of ITP was seen at oncology office for Nplate on . Patient stated that she had dysuria. She was sent to urology office. She was prescribed nitrofurantoin stated that it took a day for her to get it. She
was also seen in the ER in the meantime. She took it for 5 days yesterday she had severe burning still persisting after taking the antibiotics. No fevers. No abdominal pain she thought that the urine was slightly pink yesterday. She presented
herself to the ER since she was not getting better
Medical History
Past Medical History
Past Medical History: Reports Other
Additional Past Medical History:
Oral surgery
Past Surgical History: Reports Other
Additional Past Surgical History:
Vertigo, ITP, multiple antibiotic allergies, glaucoma, anxiety
Social History
Tobacco: Former Smoker
Alcohol: Occasional
Drug: None
Employment: Not Employed
Family History
Family History: Cancer (Mother had rectal cancer father had pancreatic cancer)
Allergies / Home Medications
Allergies reflects when Allergies were last updated in [employer].
Home Medications with original date entered in [employer]
Allergy/Medication List:
Allergies
Allergy/AdvReac Type Severity Reaction Status Date / Time
acyclovir [From Zovirax] Allergy ANAPHYLAXIS-PT. Verified 09/04/24 05:47
SAID -
LOWERED
HER
PLATELETS
alprazolam [From Xanax] Allergy HYPER Verified 09/04/24 05:47
aspirin Allergy LOWERED Verified 09/04/24 05:47
HER
PLATELETS
caffeine Allergy Unknown Verified 09/04/24 05:47
ciprofloxacin [From Cipro] Allergy Hives Verified 09/04/24 05:47
ciprofloxacin HCl Allergy Hives Verified 09/04/24 05:47
[From Cipro]
epinephrine Allergy HEART RACES Verified 09/04/24 05:47
erythromycin base Allergy 'felt skin Verified 09/04/24 05:47
[Erythromycin Base] crawling'
escitalopram oxalate Allergy THROMBOCYTO Verified 09/04/24 05:47
[From Lexapro] PENIA
paroxetine HCl [From Paxil] Allergy THROMBOCYTO Verified 09/04/24 05:47
PENIA
Penicillins Allergy Rash - Verified 09/04/24 09:14
tolerated
ceftriaxone
in the past
Sulfa (Sulfonamide Allergy HIVES AND Verified 09/04/24 05:47
Antibiotics) RASH
sulfite Allergy HIVES AND Verified 09/04/24 05:47
RASH
Home Medications
dorzolamide 22.3 mg-timolol 6.8 mg/mL eye drops (Cosopt) 1 drp BOTH EYES BID ##0 01/31/14
lorazepam 1 mg tablet 1 mg PO Q6 anxiety/panic attacks 01/31/14
brimonidine 0.2 % eye drops 1 drp BOTH EYES BID 10/03/22
Nplate 1 dose SC TH low platelets 09/04/24
acetaminophen 160 mg/5 mL oral elixir 650 mg PO QIDPRN PRN mild pain 09/04/24
calcium carbonate (Tums) 200 mg PO QIDPRN PRN indigestion 09/04/24
nitrofurantoin monohydrate/macrocrystals 100 mg capsule (Macrobid) 100 mg PO Q12H UTI 09/04/24
Review of Systems
-
A 12 point ROS was completed and negative except as noted: Yes
Constitutional: Reports Fatigue and Other (Pain all over the body she is very sensitive, dry skin)
Abdomen/GI: Denies Abdominal Pain, Vomiting or Diarrhea
: Reports Other ( pink urine yesterday)
Physical Exam
Vital Signs
Vital Signs
Temp Pulse Resp BP Pulse Ox
98.5 F 106 20 102/59 99
09/04/24 07:19 09/04/24 08:00 09/04/24 08:00 09/04/24 08:00 09/04/24 08:00
Physical Exam
General: Conversant
Respiratory: Clear
Cardiac: S1/S2 and Regular Rhythm
GI: Soft, Non Distended and Normal Bowel Sounds
Musculoskeletal: Other ( complains of tenderness in the cervical spine)
Neuro: No Motor Deficits and Nonfocal/grossly intact
Psych: Intact Judgment/Insight
Laboratory Results
-
09/04/24 05:51
09/04/24 05:51
Laboratory Results
Lactic Acid 7.3 mmol/L (0.7-2.0) H* 09/04/24 05:51
Total Bilirubin 1.6 mg/dl (0.2-1.3) H 09/04/24 05:51
AST 37 U/L (14-36) H 09/04/24 05:51
ALT 31 U/L (0-35) 09/04/24 05:51
Alkaline Phosphatase 74 U/L (38-126) 09/04/24 05:51
Impression/Plan
-
IMPRESSION/PLAN:
# Sepsis from UTI
Leukocytosis of 33,000 on admission
Lactic acidosis-7.3-gyilne-fxylyvekm
Chest x-ray
CT of the abdomen and pelvis to rule out obstruction/stone
ID consulted by ER because of multiple drug allergies
Continue ceftriaxone
# Fall yesterday-multiple areas of-she complains of pain but daughter states that she is very sensitive and anxious percent and can complain of pain. Spoke to radiology they can see hips on CT abdomen and pelvis therefore , will not order separate
hip x-rays, CT of the cervical spine and head
# Acute kidney injury with metabolic acidosis
IV fluids with bicarb
Rpt BMP later
# Hyponatremia-check urine sodium
# Slightly elevated AST-follow
# History of ITP-follows up with Dr. Stacey Cortes. Platelets 1 59,000
# Glaucoma-continue Cosopt, Alphagan, brimonidine eyedrops
# Anxiety-continue as needed lorazepam
# DVT prophylaxis-SCDs
# CODE STATUS-patient wants to be full code
Discussed with daughter at bedside
Discussed with radiologist
Discussed with nursing at bedside
Time spent over 75 minutes
[2024-09-04 09:23] LABS: Urine Amorphous Seen; Urine Red Blood Cell >100 /HPF (0-2); Urine Urothelial Cell 16-20 /LPF (FEW)
[2024-09-04 09:24] LABS: Urine Bacteria Many (Negative); Urine White Cell 30-40 /HPF (0-5)
[2024-09-04] MEDS: ROCEPHIN 1000 MG IV (09:47)
[2024-09-04 10:15] LABS: Lactic Acid 3.2 mmol/L (0.7-2.0)
[2024-09-04] MEDS: TYLENOL ORAL SOLUTION 1000 MG PO (12:18)
[2024-09-04 12:47] LABS: Urine Sodium 21 mmol/L (30-90)
[2024-09-04 13:20] LABS: Osmolality Urine 326 mOsm/kg (300-900)
--- NOTE | 2024-09-04 13:37 | W.PN.UPDATE ---
Update Note
Progress Note Update
CAT scans noted
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
ID consulted
[2024-09-04] MEDS: SODIUM CHLORIDE 1109.625 MEQ IV ×2 (13:54)
[2024-09-04 14:21] LABS: Lactic Acid 4.9 mmol/L (0.7-2.0)
--- NOTE | 2024-09-04 14:39 | CON.ID ---
Consultation
-
Date/Time Consultation Requested: September 04, 2024 1338
Date/Time Consultation Performed: September 04, 2024 1440
Requesting Provider: Dr. Rocío Morales
Performing Provider: Dr. Vaishali Navarro
Reason for Consultation: UTI, multiple abx allergies
Chief Complaint / Past History
Chief Complaint
Burning with urination
History of Present Illness
History obtained from the patient as well as from her daughter at bedside. She is an 83-year-old female with history of ITP who presented to the hospital early this morning due to persistent dysuria. Patient reports that her white count was noted
to be elevated at the oncologist office on August 24. Initially she did not have symptoms but then developed dysuria. Urine analysis was abnormal and she was started on nitrofurantoin solution but pharmacy did not have this in stock. Of note
patient is unable to swallow solid pills. She can only take suspension medications. No dysphagia; she can swallow regular foods. She went to the ER August 25. Ucx sent. ED spoke to pharmacy who recommended dissolving nitrofurantoin capsules
in water. She was discharged to complete the 5 days of nitrofurantoin. 3 days into the antibiotic, the dysuria resolved. However after she finished the abx, dysuria recurred. She was then prescribed second 5-day course of nitrofurantoin which
she started yesterday. She was very weak and slid off the bed, therefore she came to the ER early this morning. WBC 33, 37% bands. She was given a dose of ceftriaxone. No fevers or chills. Last UTI was a year ago. Continues to have dysuira. No
flank pain. She feels tired. Per daughter she is a bit lethargic.
Past History
Additional Past Medical History:
ITP
Anxiety
Glaucoma
Vertigo
Can only swallow liquid meds
Allergy History:
acyclovir [From Zovirax] Allergy (Verified 09/04/24 05:47)
ANAPHYLAXIS-PT. SAID - LOWERED HER PLATELETS
alprazolam [From Xanax] Allergy (Verified 09/04/24 05:47)
HYPER
aspirin Allergy (Verified 09/04/24 05:47)
LOWERED HER PLATELETS
caffeine Allergy (Verified 09/04/24 05:47)
Unknown
ciprofloxacin [From Cipro] Allergy (Verified 09/04/24 05:47)
Hives
ciprofloxacin HCl [From Cipro] Allergy (Verified 09/04/24 05:47)
Hives
epinephrine Allergy (Verified 09/04/24 05:47)
HEART RACES
erythromycin base [Erythromycin Base] Allergy (Verified 09/04/24 05:47)
'felt skin crawling'
escitalopram oxalate [From Lexapro] Allergy (Verified 09/04/24 05:47)
THROMBOCYTOPENIA
paroxetine HCl [From Paxil] Allergy (Verified 09/04/24 05:47)
THROMBOCYTOPENIA
Penicillins Allergy (Verified 09/04/24 09:14)
Rash - tolerated ceftriaxone in the past
Sulfa (Sulfonamide Antibiotics) Allergy (Verified 09/04/24 05:47)
HIVES AND RASH
sulfite Allergy (Verified 09/04/24 05:47)
HIVES AND RASH
Medications Reviewed: Yes
Current Antibiotics:
ceftriaxone
Social History
Tobacco: Former Smoker
Alcohol: Occasional
Drug: None
Living: Alone
Family History
Family History: Not Pertinent
Review of Systems
Review of Systems
General: Change in Appetite; Negative Fever or Chills
HEENT: Negative Sinus Problems, Headache or Pharyngitis
Cardiovascular: Negative Chest Pain or Dyspnea
Respiratory: Negative Dyspnea or Cough
Gasteroenterology: Negative Nausea, Vomiting or Diarrhea
Genital / Urological: Dysuria; Negative Flank Pain
Endocrine: Weakness
All systems: All other systems were reviewed and were negative
Vital Signs
Temp Pulse Resp BP Pulse Ox
98.5 F 110 17 96/43 97
09/04/24 07:19 09/04/24 09:31 09/04/24 09:31 09/04/24 09:31 09/04/24 09:31
Physical Exam
Physical Exam
Constitutional: No Acute Distress
Eyes: No Conjunctival Hemorrhage and Sclera Anicteric
Cardiovascular: Regular Rate and S1/S2
Pulmonary: Clear
Gastrointestinal: Soft, Non Tender, Non Distended and Normal Bowel Sounds
Genito-Urinary: Negative CVA Tenderness
Extremities: Negative Edema
Skin: Negative Jaundice
Neurological: AO x 3; Negative Meningeal Signs
Lab / Diagnostic Study Results
09/04/24 05:51
Total Counted 100 09/04/24 05:51
Abs Neuts (Manual) 31.5 10^3/uL (1.4-6.5) H 09/04/24 05:51
Segmented Neutrophils 58 % (42-75) 09/04/24 05:51
Band Neutrophils 37 % (0-3) H 09/04/24 05:51
Lymphocytes (Manual) 4 % (20-51) L 09/04/24 05:51
Lactic Acid 4.9 mmol/L (0.7-2.0) H* 09/04/24 13:53
Ur Squamous Epith Cells 6-10 /LPF (Few) 09/04/24 07:43
Microbiology Results
Micro:
09/04/24 09:39 Blood Culture - Pending
Blood/Venous
09/04/24 07:43 Urine Culture - Pending
Urine
09/04/24 09:39 Blood Culture - Pending
Blood/Venous
09/04/24 CT a/p: Small focus of air within the anterior urinary bladder, which could be from instrumentation, although could also be from air forming infection. The bladder wall appears thickened with stranding of the fat anterior to the bladder,
suggesting cystitis in this patient with reported history of urinary tract infection.
Assessment / Plan
# Symptomatic UTI
# Sepsis :Leukocytosis, bandemia, lactic acid 7.3
# [place]
- 08/25 Ucx + E. coli treated with 5d nitrofurantion (sensitive)
08/30 Ucx No growth
- CT a/p: no hydro
- Follow blood cultures
-Agree with ceftriaxone pending culture data
- Trend WBC, lactic acid
--- NOTE | 2024-09-04 14:48 | EDRN ---
Contacted Rocío Morales regarding repeat BMP ordered upon transfer, informed provider that IVF just started due to recently receiving from pharmacy. Per Rocío Morales, repeat BMP at approx 1900 to see how labs improved after IVF admin.
[2024-09-04] MEDS: COSOPT EYE DROPS BOTH EYES (17:45)
[2024-09-04 18:27] LABS: Blood Urea Nitrogen 36 mg/dl (7-17); Calcium 8.4 mg/dl (8.4-10.2); Carbon Dioxide 21 mmol/L (22-30); Chloride 97 mmol/L (98-107); Estimated Creatinine Clearance 21 ml/min; Glucose 143 mg/dl (70-99); Potassium 4.5 mmol/L (3.5-5.1); Sodium 129 mmol/L (135-145); eGFR 27.78
--- NOTE | 2024-09-04 18:27 | EDRN ---
Pt requesting to take her ativan around 7:30-8pm. I offered to pt now and she did not want it.
--- NOTE | 2024-09-04 19:00 | PTCARENOTE ---
Pt arrived to [facility] from ED, pullover assist. AAOx3, forgetful, bed alarm in place. No complaints of pain at this time. Pt oriented to room, call trammell within reach. VSS on admission.
[2024-09-04] MEDS: ATIVAN 1 MG PO (20:02)
[2024-09-04] MEDS: ALPHAGAN 0.2% EYE DROPS 1 DROP BOTH EYES (22:04)
[2024-09-04] MEDS: COSOPT EYE DROPS 1 DROP BOTH EYES (22:11)
[2024-09-04] MEDS: TYLENOL ORAL SOLUTION 650 MG PO (22:47)
--- NOTE | 2024-09-04 23:00 | PTCARENOTE ---
Pt reports 10/10 neuropathy pain in b/l lower legs. Pt reports taking liquid Tylenol at home. JEFFY Angel notified, order placed for 1x liquid Tylenol and provided to pt.
[2024-09-05 00:36] VITALS: BP 104/59
[2024-09-05] MEDS: ATIVAN PO (00:48)
[2024-09-05] MEDS: NSS 1000 IV ×2 (00:50→11:53)
[2024-09-05] MEDS: ATIVAN 1 MG PO ×4 (02:17→20:40)
[2024-09-05 07:26] LABS: Hematocrit 30.3 % (37.0-47.0); Mean Corp Hgb Conc. 36.3 g/dL (33.0-37.0); Mean Corpuscular Hgb 32.4 pg (27.0-31.0); Mean Corpuscular Volume 89.1 fL (81.0-99.0); Mean Platelet Volume 10.1 fL (7.4-10.4); Platelet Count 152 10^3/uL (130-400); Red Cell Dist. Width 13.2 % (11.5-14.5); White Blood Cell Count 23.4 10^3/uL (4.8-10.8)
[2024-09-05 07:57] LABS: Blood Urea Nitrogen 38 mg/dl (7-17); Carbon Dioxide 24 mmol/L (22-30); Chloride 98 mmol/L (98-107); Estimated Creatinine Clearance 22 ml/min; Glucose 96 mg/dl (70-99); Potassium 4.3 mmol/L (3.5-5.1); Sodium 131 mmol/L (135-145); eGFR 27.78
[2024-09-05 08:00] VITALS: BP 99/55
[2024-09-05 08:19] VITALS: BP 99/55
[2024-09-05 08:28] LABS: TSH 2.01 uIU/ml (0.47-4.68)
[2024-09-05 08:47] LABS: Vitamin B12 312 pg/ml (239-931)
[2024-09-05] MEDS: COSOPT EYE DROPS 1 DROP BOTH EYES (08:50)
[2024-09-05] MEDS: ALPHAGAN 0.2% EYE DROPS 1 DROP BOTH EYES (08:50)
[2024-09-05 09:22] LABS: Lactic Acid 1.4 mmol/L (0.7-2.0)
--- NOTE | 2024-09-05 09:43 | W.PN.ID1 ---
Date of Service
Date of Service: September 05, 2024
Today's Communication
Continue ceftriaxone.
Assessment / Plan
# Symptomatic UTI
# Leukocytosis trending down, lactic acidosis resolved
# [place]
- 2/3 Ucx E. coli
- Blood cx's pending
- CT a/p: no hydro
- Continue ceftriaxone pending culture data
- Trend WBC
#Additional Past Medical History:
ITP
Anxiety
Glaucoma
Vertigo
Can only swallow liquid meds
Chief Complaint
-: Leukocytosis and UTI
Subjective / Review of Systems
Dysuria improving.
Vital Signs / Physical Exam
Vital Signs
Vital Signs
Temp Pulse Resp BP Pulse Ox
98.4 F 88 17 99/55 98
09/05/24 08:00 09/05/24 08:00 09/05/24 08:00 09/05/24 08:00 09/05/24 08:00
Physical Exam
Constitutional: No Acute Distress and Comfortable
Cardiovascular: Regular Rate and S1/S2
Pulmonary: Clear
Gastrointestinal: Soft, Non Tender, Non Distended and Normal Bowel Sounds
Genito-Urinary: Negative CVA Tenderness
Extremities: Negative Edema
Neurological: Alert and AO x 3
Objective Data
Lab Data
Lab Results
09/05/24 06:58
09/05/24 06:58
Estimated Creat Clear 22 ml/min 09/05/24 06:58
Lactic Acid 1.4 mmol/L (0.7-2.0) 09/05/24 08:55
Total Bilirubin 1.6 mg/dl (0.2-1.3) H 09/04/24 05:51
AST 37 U/L (14-36) H 09/04/24 05:51
ALT 31 U/L (0-35) 09/04/24 05:51
Alkaline Phosphatase 74 U/L (38-126) 09/04/24 05:51
Most recent labs reviewed.
Micro Results:
09/04/24 07:43 Urine Culture - Preliminary
Urine Escherichia coli
09/04/24 09:39 Blood Culture - Pending
Blood/Venous
09/04/24 09:39 Blood Culture - Pending
Blood/Venous
09/04/24 CT a/p: Small focus of air within the anterior urinary bladder, which could be from instrumentation, although could also be from air forming infection. The bladder wall appears thickened with stranding of the fat anterior to the bladder,
suggesting cystitis in this patient with reported history of urinary tract infection.
[2024-09-05] MEDS: ROCEPHIN 1000 MG IV (10:33)
[2024-09-05 15:00] VITALS: BP 89/43
[2024-09-05 15:04] VITALS: BP 105/50
--- NOTE | 2024-09-05 15:27 | CM ---
bar manager reviewed patient's chart and met with patient and patient lives in a in-law suite next to son's home, with 4 steps to enter, patient is independent with adl's and uses a cane or walker with ambulation.
PCP: Dr. Campos
Pharmacy: [facility]
--- NOTE | 2024-09-05 16:33 | W.PN.HOSP.TC ---
Today's Communication/Plan
-
IV fluids
Follow BMP
Follow CBC
Continue ceftriaxone and wait for urine cultures
PT OT
Assessment / Plan
Assessment / Plan
Feels better
Awake alert
Cardiovascular system S1-S2 appreciated
Chest clear to auscultation
Abdomen soft and nontender
No pedal edema
# Sepsis from UTI
Cystitis on CT
E. coli in cultures
Leukocytosis of 33,000 on admission,coming down
Lactic acidosis-resolved
CT of the abdomen and pelvis to rule out obstruction/stone
ID consulted by ER because of multiple drug allergies
Continue ceftriaxone
Needs outpatient urology evaluation
# Fall -no injuries noted on CAT scans
# Acute kidney injury with metabolic acidosis
IV fluids
Rpt BMP tomorrow
# Hyponatremia-improving. Continue IV fluids with elevated creatinine
# Slightly elevated AST-follow
# History of ITP-follows up with Dr. Stacey Cortes. Platelets normal (discussed with hematology on-call today. Advised to reach out to hematology on-call at patient discharge they will arrange Nplate as outpatient.)
# Glaucoma-continue Cosopt, Alphagan, brimonidine eyedrops
# Anxiety-continue as needed lorazepam
# DVT prophylaxis-SCDs
# CODE STATUS-patient wants to be full code
Discussed with daughter from patient's phone from at bedside. All questions answered
Discussed with nursing at bedside
D/W Hematology inspector outside steam distribution
Anticipated Discharge: Within 24 hours
Subjective/Interval History
-
Date of Service: September 05, 2024
Objective Data
-
Labs:
Laboratory Results
09/05/24
06:58
WBC 23.4 H
Hgb 11.0 L D
Hct 30.3 L
Plt Count 152
Sodium 131 L
Potassium 4.3
Chloride 98
Carbon Dioxide 24
BUN 38 H
Creatinine 1.8 H
Glucose 96
Calcium 8.0 L
Vital Signs:
Vital Signs
Temp Pulse Resp BP Pulse Ox
98.5 F 105 19 105/50 97
09/05/24 15:00 09/05/24 15:00 09/05/24 15:00 09/05/24 15:04 09/05/24 15:00
I&O
09/04/24 09/05/24 09/06/24
06:59 06:59 06:59
Intake Total 1480 / 1480 660 / 660
Balance 1480 / 1480 660 / 660
[2024-09-05 16:52] LABS: Glucose - Point of Care 93 mg/dl (70-99)
[2024-09-05] MEDS: D5/0.9% SODIUM CHLORIDE 1000 IV (18:55)
[2024-09-05] MEDS: COSOPT EYE DROPS BOTH EYES ×2 (20:40→20:58)
[2024-09-05] MEDS: ALPHAGAN 0.2% EYE DROPS BOTH EYES (20:58)
[2024-09-05 23:25] VITALS: BP 127/72
[2024-09-06] MEDS: ATIVAN 1 MG PO ×4 (01:56→20:54)
[2024-09-06 07:00] VITALS: BP 115/60
[2024-09-06] MEDS: ALPHAGAN 0.2% EYE DROPS 1 DROP BOTH EYES ×2 (08:14→20:54)
[2024-09-06 08:16] LABS: % Basophils 0.3 % (0-2); % Eosinophils 2.8 % (0-6); % Immature Granulocytes 0.7 % (0-0.5); % Lymphocytes 7.4 % (20.5-51.1); % Monocytes 2.7 % (1.7-9.3); % Neutrophils 86.1 % (42.2-75.2); Absolute Eosinophils 0.5 10^3/uL (0-0.7); Absolute Immature Granulocytes 0.1 10^3/uL (0-0.05); Absolute Lymphocytes 1.2 10^3/uL (1.2-3.4); Absolute Monocytes 0.4 10^3/uL (0.1-0.6); Absolute Neutrophils 13.6 10^3/uL (1.4-6.5); Hematocrit 28.3 % (37.0-47.0); Hemoglobin 9.7 g/dL (12.0-16.0); Mean Corp Hgb Conc. 34.3 g/dL (33.0-37.0); Mean Corpuscular Volume 90.4 fL (81.0-99.0); Mean Platelet Volume 9.9 fL (7.4-10.4); Nucleated Red Blood Cells % 0 %; Platelet Count 179 10^3/uL (130-400); Red Blood Cell Count 3.13 10^6/uL (4.20-5.40); Red Cell Dist. Width 13.2 % (11.5-14.5); White Blood Cell Count 15.8 10^3/uL (4.8-10.8)
[2024-09-06] MEDS: COSOPT EYE DROPS 1 DROP BOTH EYES ×2 (08:33→21:39)
[2024-09-06 08:55] LABS: Blood Urea Nitrogen 23 mg/dl (7-17); Calcium 7.7 mg/dl (8.4-10.2); Carbon Dioxide 23 mmol/L (22-30); Chloride 105 mmol/L (98-107); Estimated Creatinine Clearance 33 ml/min; Glucose 213 mg/dl (70-99); Potassium 3.6 mmol/L (3.5-5.1); Sodium 136 mmol/L (135-145); eGFR 45.19
[2024-09-06] MEDS: D5/0.9% SODIUM CHLORIDE IV (09:39)
--- NOTE | 2024-09-06 11:27 | W.PN.HOSP.TC ---
Today's Communication/Plan
-
DC IV fluids
Infectious disease recs
Continue IV antibiotics while here
Plan for tentative discharge later today
Assessment / Plan
Assessment / Plan
Feels better
Awake alert
Cardiovascular system S1-S2 appreciated
Chest clear to auscultation
Abdomen soft and nontender
No pedal edema
# Sepsis from E. coli UTI
Cystitis on CT
E. coli in cultures
Leukocytosis of 33,000 on admission,coming down
Lactic acidosis-resolved
CT of the abdomen and pelvis to rule out obstruction/stone
ID consulted by ER because of multiple drug allergies
Continue ceftriaxone. Susceptibility noted. Will await further ID recs.
Needs outpatient urology evaluation
# Drop in hemoglobin secondary to dilutional secondary to aggressive IV fluid resuscitation
# Fall -no injuries noted on CAT scans
# Acute kidney injury with metabolic acidosis
DC IV fluids. Creatinine back to baseline.
# Hyponatremia-resolved with fluids. Hypovolemia.
# Slightly elevated AST-follow
# History of ITP-follows up with Dr. Stacey Cortes. Platelets normal Pt due for NPLATE Infusion tomm. DC Hep sc. SCDs for now
# Glaucoma-continue Cosopt, Alphagan, brimonidine eyedrops
# Anxiety-continue as needed lorazepam
# DVT prophylaxis-SCDs
# CODE STATUS-patient wants to be full code
PT-home health.
Anticipated Discharge: Today
Subjective/Interval History
-
Date of Service: September 06, 2024
Tolerating diet
Remains afebrile
Improvement in leukocytosis
Objective Data
-
Labs:
Laboratory Results
09/06/24
07:50
WBC 15.8 H
Hgb 9.7 L
Hct 28.3 L
Plt Count 179
Sodium 136
Potassium 3.6
Chloride 105
Carbon Dioxide 23
BUN 23 H
Creatinine 1.2 H
Glucose 213 H
Calcium 7.7 L
Vital Signs:
Vital Signs
Temp Pulse Resp BP Pulse Ox
98.8 F 83 18 115/60 96
09/06/24 07:00 09/06/24 07:00 09/06/24 07:00 09/06/24 07:00 09/06/24 07:00
I&O
09/05/24 09/06/24 09/07/24
06:59 06:59 06:59
Intake Total 1480 / 1480 1899
Balance 1480 / 1480 1899
[2024-09-06] MEDS: ROCEPHIN 1000 MG IV (11:35)
--- NOTE | 2024-09-06 11:52 | W.PN.ID1 ---
Date of Service
Date of Service: September 06, 2024
Today's Communication
See below.
Assessment / Plan
# Symptomatic UTI
# Leukocytosis trending down
# [place] improving
- 2/3 Ucx E. coli
- Blood cx's negative
- CT a/p: no hydro
- Pt still having dysuria despite being on appropriate abx. ?interstitial cystitis. Follow-up with Urology.
- Can ceftriaxone to doxycycline 100mg po bid through 09/17/24.
#Additional Past Medical History:
ITP
Anxiety
Glaucoma
Vertigo
Can only swallow liquid meds
Chief Complaint
-: Leukocytosis and UTI
Subjective / Review of Systems
Still has dysuria.
Vital Signs / Physical Exam
Vital Signs
Vital Signs
Temp Pulse Resp BP Pulse Ox
98.8 F 83 18 115/60 96
09/06/24 07:00 09/06/24 07:00 09/06/24 07:00 09/06/24 07:00 09/06/24 07:00
Physical Exam
Constitutional: No Acute Distress and Comfortable
Cardiovascular: Regular Rate and S1/S2
Pulmonary: Clear
Gastrointestinal: Soft, Non Tender and Non Distended
Genito-Urinary: Negative CVA Tenderness
Extremities: Negative Edema
Neurological: AO x 3
Objective Data
Lab Data
Lab Results
09/06/24 07:50
09/06/24 07:50
Estimated Creat Clear 33 ml/min 09/06/24 07:50
Lactic Acid 1.4 mmol/L (0.7-2.0) 09/05/24 08:55
Total Bilirubin 1.6 mg/dl (0.2-1.3) H 09/04/24 05:51
AST 37 U/L (14-36) H 09/04/24 05:51
ALT 31 U/L (0-35) 09/04/24 05:51
Alkaline Phosphatase 74 U/L (38-126) 09/04/24 05:51
Most recent labs reviewed.
Micro Results:
09/04/24 07:43 Urine Culture - Final
Urine Escherichia coli
09/04/24 09:39 Blood Culture - Preliminary
Blood/Venous No Growth in 48 hours- Final report to follow
09/04/24 09:39 Blood Culture - Preliminary
Blood/Venous No Growth in 48 hours- Final report to follow
09/04/24 CT a/p: Small focus of air within the anterior urinary bladder, which could be from instrumentation, although could also be from air forming infection. The bladder wall appears thickened with stranding of the fat anterior to the bladder,
suggesting cystitis in this patient with reported history of urinary tract infection.
[2024-09-06 15:00] VITALS: BP 128/63
--- NOTE | 2024-09-06 15:10 | CM ---
Patient was from home and plan was to return to home, but patient feeling unsafe and having difficulty with walking per patient, so plan is now for skilled placement. Skilled options reviewed with patient and daughter Patti and they have selected
[facility], referral sent and bed is available tomorrow. Patient ITP and has treatment scheduled for tomorrow, daughter to patient patient up and take her to treatments and then take patient to [facility].
Plan; Daughter to transport patient to [facility] tomorrow at 12:00.
[facility]
Report [phone]
[2024-09-06 23:25] VITALS: BP 101/54
[2024-09-07] MEDS: ATIVAN 1 MG PO ×2 (02:25→08:03)
[2024-09-07 07:30] VITALS: BP 136/69
[2024-09-07] MEDS: ALPHAGAN 0.2% EYE DROPS 1 DROP BOTH EYES (08:03)
[2024-09-07] MEDS: COSOPT EYE DROPS 1 DROP BOTH EYES (08:04)
[2024-09-07] MEDS: VIBRAMYCIN 100 MG PO (08:04)
--- NOTE | 2024-09-07 08:04 | W.PN.HOSP.TC ---
Today's Communication/Plan
-
P.o. Doxy
DC to SNF
Family to transport patient for infusion
Assessment / Plan
Assessment / Plan
Feels better
Awake alert
Cardiovascular system S1-S2 appreciated
Chest clear to auscultation
Abdomen soft and nontender
No pedal edema
# Sepsis from E. coli UTI
Cystitis on CT
E. coli in cultures
Leukocytosis of 33,000 on admission,coming down
Lactic acidosis-resolved
CT of the abdomen and pelvis to rule out obstruction/stone
ID consulted by ER because of multiple drug allergies
Ceftriaxone transition to p.o. doxycycline. Possibility of interstitial cystitis. Patient does follow-up with urologist as outpatient. Recommend to follow-up with your field operations technician. Patient to make appointment to follow-up with her urologist
# Drop in hemoglobin secondary to dilutional secondary to aggressive IV fluid resuscitation
# Fall -no injuries noted on CAT scans
# Acute kidney injury with metabolic acidosis
DC IV fluids. Creatinine back to baseline.
# Hyponatremia-resolved with fluids. Hypovolemia.
# Slightly elevated AST-follow
# History of ITP-follows up with Dr. Stacey Cortes. Platelets normal Pt due for NPLATE Infusion today. DC Hep sc. SCDs for now
# Glaucoma-continue Cosopt, Alphagan, brimonidine eyedrops
# Anxiety-continue as needed lorazepam
# DVT prophylaxis-SCDs
# CODE STATUS-patient wants to be full code
SNF today.
More than 30 minutes spent in discharge including
Final examination of the patient
Summarizing hospital stay
Instructions for continuing care to all relevant caregivers
Preparation of discharge records, prescriptions, and referral forms
Total time spent (in minutes):
Anticipated Discharge: Today
Subjective/Interval History
-
Date of Service: September 07, 2024
remains afebrile
intermittent dysuria
Objective Data
-
Labs:
Laboratory Results
09/07/24
06:00
WBC Cancelled
Hgb Cancelled
Hct Cancelled
Plt Count Cancelled
Sodium Cancelled
Potassium Cancelled
Chloride Cancelled
Carbon Dioxide Cancelled
BUN Cancelled
Creatinine Cancelled
Glucose Cancelled
Calcium Cancelled
Vital Signs:
Vital Signs
Temp Pulse Resp BP Pulse Ox
97.7 F 65 16 101/54 96
09/06/24 23:25 09/06/24 23:25 09/06/24 23:25 09/06/24 23:25 09/06/24 23:25
I&O
09/06/24 09/07/24 09/08/24
06:59 06:59 06:59
Intake Total 1899 480 / 480
Balance 1899 480 / 480
--- NOTE | 2024-09-07 10:07 | W.DCSUMMARY ---
Discharge Summary
Discharge Data
Date of Admission: 09/04/24
Date of Discharge: 09/07/24
-
Pending Results: No
Hospital Course
83-year-old female past medical history of ITP, anxiety who is presenting with complaint of dysuria. Patient was found to have sepsis secondary to E. coli UTI. Cystitis was noted on CAT scan. Urine culture with E. coli. Patient with significant
leukocytosis was down trended. Patient significant dehydration which resolved with IV fluid resuscitation aggressively. Lactic acidosis resolved. CAT scan abdomen was negative for renal stone obstruction. ID was consulted. IV ceftriaxone was
continued. Patient urine culture resulted and was transitioned to p.o. doxycycline. Patient was recommended follow-up with her primary urologist or urogyn as outpatient. Patient also with elevated creatinine on admission is resolved with IV fluid
resuscitation. Patient also complaining of severe weakness. Patient will be transition to SNF. Patient also due for Nplate injection. Upon discharge family member will transport patient to infusion center and then patient will go to SNF.
Discharge Plan
-
Patient Disposition: Home with Home Care
Discharge Diagnosis/Procedures: Sepsis from E. coli urinary tract infection
Acute kidney injury metabolic acidosis
Hyponatremia secondary to dehydration
Condition: Fair
Diet: Regular
Activity: With assistance and As tolerated
Driving Restrictions: As prior to admission
Blood Work: CBC and CMP in 7 days with primary doctor
Activity Restrictions/Additional Instructions:
Doxycycline Precautions
�� Take with at least 6 oz H2O
�� Take with food but no calcium containing products like milk or cheese
�� Ideally you would not take any multivitamins, calcium, magnesium or zinc containing products.
�� If you must take one of these products make sure that the pills are by at least 3 hours.
�� Sit up for at least 30 minutes after each dose to prevent heartburn.
�� Your skin will be more sensitive to the sun while you are on doxycycline - it will be very easy for you to get a sunburn.
Referrals:
Alexandr Campos MD [Family Provider] - in less than 1 week
Higinio Paige MD [Active] - None (call to make appt-possible interstitial cystitis)
Prescriptions:
New
doxycycline monohydrate 25 mg/5 mL Suspension For Reconstitution
100 mg PO Q12 11 Days Qty: 440 0RF
Continued
dorzolamide-timolol [Cosopt] 22.3-6.8 mg/mL Drops
1 drp BOTH EYES BID Qty: 0
lorazepam 1 MG tablet
1 mg PO Q6
brimonidine 0.2 % drops
1 drp BOTH EYES BID
calcium carbonate [Tums] 200 mg calcium (500 mg) Tablet,Chewable
200 mg PO QIDPRN PRN (Reason: indigestion)
acetaminophen 160 mg/5 mL Elixir
650 mg PO QIDPRN PRN (Reason: mild pain)
Nplate
1 dose SC TH
Discontinued
nitrofurantoin monohyd/m-cryst [Macrobid] 100 mg capsule
100 mg PO Q12H
Rx Instructions:
09/04/24: 08/25/24 started
Discharge Orders:
Discharge Patient (As Directed); Ordered 09/07/24
Ordered By: Coleman Lujan
Discharge Date and Time
Discharge Date/Time: 09/07/24 10:40
Print Language: LAO
--- NOTE | 2024-09-07 10:25 | W.PN.ID1 ---
Date of Service
Date of Service: September 07, 2024
Today's Communication
- Continue doxycycline 100mg po bid through 09/17/24.
Assessment / Plan
# Symptomatic UTI
# Leukocytosis trending down
# [place] improving
- 2/3 Ucx E. coli
- Blood cx's negative
- CT a/p: no hydro
- Pt still having dysuria despite being on appropriate abx. ?interstitial cystitis, ?post-menopausal vaginal atrophy. Follow-up with Urology. Outpatient vaginal estrogen cream
- Continue doxycycline 100mg po bid through 09/17/24.
#Additional Past Medical History:
ITP
Anxiety
Glaucoma
Vertigo
Can only swallow liquid meds
Chief Complaint
-: Leukocytosis and UTI
Subjective / Review of Systems
Continues to have dysuria.
Vital Signs / Physical Exam
Vital Signs
Vital Signs
Temp Pulse Resp BP Pulse Ox
98 F 69 18 136/69 97
09/07/24 07:30 09/07/24 07:30 09/07/24 07:30 09/07/24 07:30 09/07/24 07:30
Physical Exam
Constitutional: No Acute Distress and Comfortable
Cardiovascular: Regular Rate and S1/S2
Pulmonary: Clear
Gastrointestinal: Soft, Non Tender, Non Distended and Normal Bowel Sounds
Extremities: Negative Edema
Neurological: AO x 3
Objective Data
Lab Data
Lab Results
09/07/24 06:00
09/07/24 06:00
Estimated Creat Clear Cancelled 09/07/24 06:00
Lactic Acid 1.4 mmol/L (0.7-2.0) 09/05/24 08:55
Total Bilirubin 1.6 mg/dl (0.2-1.3) H 09/04/24 05:51
AST 37 U/L (14-36) H 09/04/24 05:51
ALT 31 U/L (0-35) 09/04/24 05:51
Alkaline Phosphatase 74 U/L (38-126) 09/04/24 05:51
Most recent labs reviewed.
Micro Results:
09/04/24 09:39 Blood Culture - Preliminary
Blood/Venous No Growth in 72 hours- Final report to follow
09/04/24 09:39 Blood Culture - Preliminary
Blood/Venous No Growth in 72 hours- Final report to follow
09/04/24 07:43 Urine Culture - Final
Urine Escherichia coli
09/04/24 CT a/p: Small focus of air within the anterior urinary bladder, which could be from instrumentation, although could also be from air forming infection. The bladder wall appears thickened with stranding of the fat anterior to the bladder,
suggesting cystitis in this patient with reported history of urinary tract infection.
== END 2024-09-07 10:40 | DRG 872 ==
LOC: 4 WEST ACU 10:54
PROVIDERS: Emergency Medicine; ADMITTING PHYSICIAN Hospitalist; ATTENDING PHYSICIAN Hospitalist; CONSULT PHYSICIAN Internal Medicine Infectious Disease; EMERGENCY PHYSICIAN Emergency Medicine; FAMILY PHYSICIAN Internal Medicine
DX: A41.9 Sepsis, unspecified organism (principal); N39.0 Urinary tract infection, site not specified; N17.9 Acute kidney failure, unspecified; E87.20 Acidosis, unspecified; E87.1 Hypo-osmolality and hyponatremia; D69.3 Immune thrombocytopenic purpura; Z87.891 Personal history of nicotine dependence; F41.9 Anxiety disorder, unspecified; H40.9 Unspecified glaucoma; B96.20 Unspecified Escherichia coli [E. coli] as the cause of diseases classified elsewhere
CPT/HCPCS: 51701; 70450; 71046; 72125; 73522; 74176; 80048; 80053; 81003; 81015; 82607; 82962; 83605; 83935; 84300; 84443; 85025; 85027; 87040; 87077; 87086; 87186; 96374; 97162; 97165; 99285

== ENCOUNTER → 2024-09-14 09:01 | Outpatient (REF) | payer MEDICARE, SELFPAY ==
[2024-09-14 09:25] LABS: % Basophils 0.4 % (0-2); % Eosinophils 8.9 % (0-6); % Immature Granulocytes 0.3 % (0-0.5); % Lymphocytes 13.2 % (20.5-51.1); % Monocytes 5.9 % (1.7-9.3); % Neutrophils 71.3 % (42.2-75.2); Absolute Eosinophils 0.9 10^3/uL (0-0.7); Absolute Lymphocytes 1.3 10^3/uL (1.2-3.4); Absolute Monocytes 0.6 10^3/uL (0.1-0.6); Absolute Neutrophils 6.9 10^3/uL (1.4-6.5); Hemoglobin 12.7 g/dL (12.0-16.0); Mean Corp Hgb Conc. 35.3 g/dL (33.0-37.0); Mean Corpuscular Hgb 31.3 pg (27.0-31.0); Mean Corpuscular Volume 88.7 fL (81.0-99.0); Mean Platelet Volume 9.2 fL (7.4-10.4); Platelet Count 194 10^3/uL (130-400); Red Blood Cell Count 4.06 10^6/uL (4.20-5.40); Red Cell Dist. Width 12.6 % (11.5-14.5); White Blood Cell Count 9.7 10^3/uL (4.8-10.8)
== END ==
LOC: OIDL 09:01
PROVIDERS: ATTENDING PHYSICIAN Internal Medicine Hematology & Oncology
DX: D69.3 Immune thrombocytopenic purpura (principal)
CPT/HCPCS: 36415; 85025

== ENCOUNTER → 2024-09-21 08:53 | Outpatient (REF) | payer MEDICARE, SELFPAY ==
[2024-09-21 09:09] LABS: % Basophils 0.6 % (0-2); % Eosinophils 2.5 % (0-6); % Lymphocytes 14.4 % (20.5-51.1); % Monocytes 7.7 % (1.7-9.3); % Neutrophils 73.8 % (42.2-75.2); Absolute Basophils 0.1 10^3/uL (0-0.2); Absolute Eosinophils 0.4 10^3/uL (0-0.7); Absolute Immature Granulocytes 0.2 10^3/uL (0-0.05); Absolute Lymphocytes 2.3 10^3/uL (1.2-3.4); Absolute Monocytes 1.2 10^3/uL (0.1-0.6); Absolute Neutrophils 11.9 10^3/uL (1.4-6.5); Hematocrit 37.2 % (37.0-47.0); Hemoglobin 12.8 g/dL (12.0-16.0); Mean Corp Hgb Conc. 34.4 g/dL (33.0-37.0); Mean Corpuscular Hgb 31.1 pg (27.0-31.0); Mean Corpuscular Volume 90.3 fL (81.0-99.0); Mean Platelet Volume 9.3 fL (7.4-10.4); Platelet Count 478 10^3/uL (130-400); Red Blood Cell Count 4.12 10^6/uL (4.20-5.40); White Blood Cell Count 16.1 10^3/uL (4.8-10.8)
== END ==
LOC: OIDL 08:53
PROVIDERS: ATTENDING PHYSICIAN Internal Medicine Hematology & Oncology
DX: D69.3 Immune thrombocytopenic purpura (principal)
CPT/HCPCS: 36415; 85025

== ENCOUNTER 2024-09-21 15:27 | Observation (INO) | payer MEDICARE, SELFPAY ==
[2024-09-21] VITALS (12 sets, daily range): BP systolic 115–163; BP diastolic 54–83; BMI 19.3
[2024-09-21] MEDS: NSS 1000 IV (11:53)
[2024-09-21 12:17] LABS: Lactic Acid 0.9 mmol/L (0.7-2.0)
[2024-09-21 12:25] LABS: COVID-19 Antigen Negative (Negative)
[2024-09-21 12:49] LABS: Urine Albumin 1+ (Neg - Trace); Urine Bilirubin Negative (Negative); Urine Character Slightly Cloudy (Clear); Urine Color Yellow; Urine Glucose Negative (Negative); Urine Ketone Negative (Negative); Urine Leukocyte Negative (Negative); Urine Nitrite Negative (Negative); Urine Occult Blood Negative (Negative); Urine Specific Gravity 1.015 (<1.030); Urine Urobilinogen Negative (Neg - 1+)
[2024-09-21 13:02] LABS: Urine Bacteria Few (Negative); Urine Red Blood Cell 0-2 /HPF (0-2); Urine Squamous Cell 0-2 /LPF (Few); Urine White Cell 0-2 /HPF (0-5)
--- NOTE | 2024-09-21 13:09 | ED.GENMED ---
History of Present Illness
General
Chief Complaint: Abnormal Lab Value
Source: patient and family (Daughter)
Exam Limitations: none
Time Seen by Provider: 09/21/24 11:00
History of Present Illness
History of Present Illness:
Patient with recent admission for urosepsis. Finished antibiotics 2 days ago. Since being discharged she has had general weakness. Some episodes of confusion. Her oncologist today was concerned because she seemed a little more confused to them.
She also had blood work that showed an elevated white count. She was sent for further evaluation. She had a mild cough last week. However currently denies cough or congestion. She denies abdominal pain. She denies urinary symptoms.
Past History
Past History
ED Past Medical History: Other (ITP, glaucoma, anxiety)
ED Past Surgical History: None
Social History
Tobacco: Non-smoker
Alcohol: None
Drug: None
Living: with family
Employment: Retired
Review of Systems
Review of Systems
All Other Systems: Not applicable
Constitutional: Denies fever or chills
Respiratory: Reports no symptoms
ABD/GI: Reports no symptoms
Phy Exam
Physical Exam
Physical Exam:
GENERAL: Alert and oriented in no apparent distress
EYE: Orbits normal.
NECK: Supple, no significant adenopathy.
ENT: Pharynx without erythema
CARDIAC: Regular rate and rhythm without any obvious murmurs.
LUNGS: Clear breath sounds,normal
ABDOMEN: Soft, without focal tenderness or distention
NEUROLOGICAL: Alert and oriented , grossly non-focal
SKIN: Warm and dry, no rash or lesion, no discoloration, skin intact.
MUSCULOSKELETAL: No edema,no deformity.Good color
PSYCH: Normal and appropriate interaction.
Course
Orders/Labs/Results
Orders:
Orders
09/21/24 11:28
IV Insert/Care/Rem.- Treatment PRN
Straight cath- Treatment ONCE
0.9% Sodium Chloride 1000 ml [Nss] 1,000 ml IV BOLUS
CXR2 [CR Chest - 2 Views ] Urgent
Comment:
Reason For Exam: Leukocytosis/mild cough
09/21/24 11:41
Blood Culture Q30M
KHALIF Source: Blood/Venous
Specimen Description:
Blood Culture Q30M
KHALIF Source: Blood/Venous
Specimen Description:
09/21/24 11:42
COVID-19 Antigen Urgent
Source: Nasal Swab
Lactic Acid Q4H
Comment: CANCEL 2nd LACTIC ACID IF 1st LACTIC ACID IS LESS THAN 2
Influenza A+B Rapid Molecular Urgent
KHALIF Source: Nasal Swab
Specimen Description:
09/21/24 12:34
Urinalysis Reflex To Culture Urgent
Date Specimen was Collected: 09/21/24
Time Specimen was Collected: 12:29
Urine Microscopic Reflex Cult Urgent
09/21/24 12:49
Acetaminophen [Tylenol Suspension] 640 mg PO NOW STA
09/21/24 13:55
C-Reactive Protein Urgent
Comment: ADD ON
CMP [Comprehensive Metabolic Panel] Urgent
09/21/24 14:36
Sodium Chloride [[place], Saline Mist] See Dose Instructions NASAL QIDPRN PRN
09/21/24 14:42
Lorazepam [Ativan] 1 mg PO NOW STA
09/21/24 14:48
Admit/Transfer Patient As Directed
Co-Sign Provider:
Level of Care: Inpatient admission
Assign to:: Medical/Surgical
Physician / Group: jean carlos pickering
Diagnosis: acute leukocytosis 2/2 poss steroids vs sinusitis vs bacterial
Reason for Hospitalization: acute leukocytosis 2/2 poss steroids vs sinusitis vs bacterial
Expected length of stay greater than two midnights?: Yes
ELOS- Estimated Length of Stay in days: 3
I certify the patient meets the requirements for IP care: Yes
Code Status As Directed
Resuscitation Status: Full Code
09/21/24 14:51
PRN Pain Medication Management As Directed
May give lesser potent ordered pain med per pt: Yes
preference::
Protocol:: Medication orders for pain may be administered in a
manner that supports deferring to patient preference
when the pt is:
- Requesting an ordered lesser potent pain medication.
Least to most potent pain medications are defined
as: acetaminophen < NSAID < tramadol < opioids
(morphine, oxycodone, hydromorphone).
- Requesting a lesser dose of the same medication IF
ORDERED.
- Requesting a less intrusive route of administration
if both routes are prescribed by the provider (PO <
IV).
09/21/24 14:55
Add On- LAB Urgent
Tests Added?: ESR, CRP
09/21/24 Dinner
Regular
At Your Request: Full Participation
Does patient need a safe tray?: No
Oral Supplement (If unsure of flavor order apple or vanilla): Ensure Enlive Vanilla
Supplement Frequency: BID
Comment: pt only eating yogurt, 1 chhes roll and piece apple pie athome
09/21/24 17:26
ESR [Erythrocyte Sed Rate] Urgent
09/21/24 17:30
Acetaminophen [Tylenol] 650 mg PO Q4HPRN PRN
09/21/24 17:30
DIETARY CONSULT Routine
Reason for Consult: Cachexia, eating disorder
Activity As Directed
Activity Level: With Assistance
Comment: Uses walker
Intake/ Output As Directed
Frequency: Per unit guidelines
Pneumatic Compression Sleeves As Directed
Type: Knee high
Vital Signs As Directed
Frequency: Per unit guidelines
Weight As Directed
Frequency: Daily
DX Deep Vein Thrombosis Video Routine
09/21/24 18:00
Lorazepam [Ativan] 1 mg PO QID@0000,0600,1200,1800
09/21/24 20:00
Brimonidine [Alphagan P 0.1% Eye Drops] See Dose Instructions BOTH EYES BID
Timolol Maleate/Dorzolam HCl [Cosopt Eye Drops] See Dose Instructions BOTH EYES BID
09/22/24 06:34
Complete Blood Count/With Diff IN AM
Comprehensive Metabolic Panel IN AM
Abnormal Lab Results
09/21/24 09/21/24
12:34 13:55
Sodium 132 L mmol/L
(135-145)
Chloride 95 L mmol/L
(98-107)
BUN 24 H mg/dl
(7-17)
Creatinine 1.1 H mg/dL
(0.6-1.0)
C-Reactive Protein 22.40 H mg/L
(0.0-10.00)
Urine Bacteria (Reflex) Few A
(Negative)
Urine Albumin (Reflex) 1+ A
(Neg - Trace)
09/21/24 13:55
Vital Signs
Initial and Last Documented VS:
Initial Vital Signs
Temp Pulse Resp BP Pulse Ox
98.1 F 99 18 118/76 98
09/21/24 10:02 09/21/24 10:02 09/21/24 10:02 09/21/24 10:02 09/21/24 10:02
Last Documented Vital Signs
Temp Pulse Resp BP Pulse Ox
97.9 F 77 18 138/72 98
09/22/24 15:00 09/22/24 15:00 09/22/24 15:00 09/22/24 15:00 09/22/24 15:00
MDM/Problems Addressed
Differential Diagnosis Includes:
Patient with a nonspecific leukocytosis. Clinically stable and nontoxic. Clinically not septic. Not currently describing urinary symptoms or significant respiratory or abdominal symptoms. Prednisone may be the etiology of her mild leukocytosis.
Evaluate for other etiology of infection.
*Critical Care Note
Total Time (30-74mins, 75-104mins- exclusive of procedures): Not Applicable
Data Reviewed
Review of Other/Old Records Reveals: Labs, Records, Radiology Studies, Testing and Discharge Summary
Update Note
Update Note:
Source of leukocytosis uncertain at this time. Possibly secondary to steroids. Possibly underlying viral. Doubt bacterial etiology although await cultures. Discussed inpatient versus outpatient management with patient and family. Given her
weakness somewhat decline in mental status they would prefer inpatient observation.
ED Attending Note
-
Portions of this chart may have been created with voice recognition software.� Occasional wrong word or��sound alike� substitutions may have occurred due to the inherent limitations of voice recognition software.
Discharge Plan
Departure
Patient Disposition: Admit
Date of Disposition: 09/21/24
Time of Disposition: 13:33
Presentation/result/management discussed w/ accepting MD/DO: Hospitalist
Discharge Problem:
Leukocytosis, Weakness, Recent urosepsis
Interventions
Interventions:
*Risk Screen - Suicide Last Done: 09/21/24 10:02
*General Assessment Last Done: 09/21/24 10:02
*Neglect/Abuse Screening Last Done: 09/21/24 10:02
ED- Fall Risk Assessment Last Done: 09/21/24 17:36
*ED COVID-19 Vaccine History Last Done: 09/21/24 10:02
*Nursing Disposition Last Done: 09/21/24 17:36
Discharge Date and Time
Discharge Date/Time: 09/21/24 17:39
[2024-09-21] MEDS: TYLENOL SUSPENSION 640 MG PO (13:14)
--- NOTE | 2024-09-21 13:46 | HPS.HSE ---
Family Physician
-
Family Physician: Alexandr Campos
Chief Complaint
-
Sent for abnormal lab work
History of Present Illness
83-year-old female complaining of frontal sinus headache with pressure in between both eyes at the top of the nose, rhinorrhea, occasional dry cough on and off for the past week and generalized weakness. She was placed on prednisone for chest rash
thought to be related to doxycycline. The chest rash is resolved her doxycycline was finished on 09/19/2024. She had 2 days left of prednisone 10 mg so she will hold. She had routine outpatient labs today by her knockup worker for her ITP. He
noticed her WBC count was elevated at 16.1 in the office and he sent her over for evaluation. He also thought she was confused. Patient is awake alert oriented x 3 with no confusion. She is very anxious which she has a history of and is on
chronic scheduled Ativan. Her daughter Patti is at bedside and states she does not appreciate any confusion with her mother. She has been visiting her every day twice daily since they took her out of the [facility] rehab [facility] on 09/10/2024 due
to not receiving therapy. She reports her mother has been using a walker at home occasional nonwalker with steady gait. She started with outpatient home care was visited by a nurse on 09/11 by OT on 09/19 and PT yesterday on 09/20 for 45-minute to 1
hour sessions. She qualifies for 1 hour a week of PT and OT. She lives in a [id number] suite attached to her son Nislon's house. And is only alone at home from about 7-2. She has had no falls, denies fever, chills, urinary symptoms,
constipation, sore throat, chest pain, palpitations, shortness of breath, abdominal pain, nausea, vomiting, diarrhea. She finished doxycycline 2 days ago on 09/19/2024.
She was recently admitted to 09/04 -09/07/2024 for sepsis secondary to E. coli UTI. Cystitis was also noted on CT scan. She had significant leukocytosis that was trended she received IV Rocephin with transition to p.o. doxycycline which she finished
2 days ago on 09/19/2024. She denies any urinary symptoms.
She has past medical history of ITP receives Nplate injection at outpatient infusion center. She received Nplate infusion on 09/14/2024 . She typically receives Nplate infusion on but was held during her recent infection she has past
medical history of ITP, anxiety, fall, glaucoma, slightly elevated AST September admission, chronic dysphagia with pill swallowing only
Medical History
Past Medical History
Past Medical History: Reports Other
Additional Past Medical History:
09/04 -09/07/2024 for sepsis secondary to E. coli UTI. Cystitis was also noted on CT scan.
. ITP receives Nplate injection at outpatient infusion center. She received Nplate infusion on 09/14/2024 . She typically receives Nplate infusion on but was held during her recent infection
anxiety
fall
glaucoma
slightly elevated AST September admission
chronic dysphagia with pill swallowing only
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
Past Surgical History: Reports Other (Unknown)
Social History
Tobacco: Non-smoker
Alcohol: None
Drug: None
Personal: Single
Living: Alone (Lives in [id number] suite built onto farzad Devine's home)
Employment: Retired
Family History
Family History: Not pertinent
Allergies / Home Medications
Allergies reflects when Allergies were last updated in [employer].
Home Medications with original date entered in [employer]
Allergy/Medication List:
Allergies
Allergy/AdvReac Type Severity Reaction Status Date / Time
acyclovir [From Zovirax] Allergy ANAPHYLAXIS-PT. Verified 09/21/24 10:04
SAID -
LOWERED
HER
PLATELETS
alprazolam [From Xanax] Allergy HYPER Verified 09/21/24 10:04
aspirin Allergy LOWERED Verified 09/21/24 10:04
HER
PLATELETS
caffeine Allergy Unknown Verified 09/21/24 10:04
ciprofloxacin [From Cipro] Allergy Hives/ pt Verified 09/21/24 10:04
states she
is now
able to
take cipro
epinephrine Allergy HEART RACES Verified 09/21/24 10:04
erythromycin base Allergy 'felt skin Verified 09/21/24 10:04
[Erythromycin Base] crawling'
escitalopram oxalate Allergy THROMBOCYTO Verified 09/21/24 10:04
[From Lexapro] PENIA
paroxetine HCl [From Paxil] Allergy THROMBOCYTO Verified 09/21/24 10:04
PENIA
Penicillins Allergy Rash - Verified 09/21/24 10:04
tolerated
ceftriaxone
in the past
Sulfa (Sulfonamide Allergy HIVES AND Verified 09/21/24 10:04
Antibiotics) RASH
sulfite Allergy HIVES AND Verified 09/21/24 10:04
RASH
Home Medications
lorazepam 1 mg tablet 1 mg PO QID@06,12,17,00 01/31/14
acetaminophen 160 mg/5 mL (5 mL) oral solution 0 mg PO BIDPRN PRN mild pain 09/21/24
brimonidine 0.1 % eye drops (Alphagan P) 1 drp BOTH EYES BID 09/21/24
dorzolamide 22.3 mg-timolol 6.8 mg/mL eye drops (Cosopt) 1 drp BOTH EYES BID 09/21/24
prednisone 10 mg tablet 10 mg PO DAILY@1200 09/21/24
romiplostim 125 mcg subcutaneous solution (Nplate) 0 mcg SC TH 09/21/24
Review of Systems
-
History Source: Patient and Family (Daughter Kelley at bedside)
A 12 point ROS was completed and negative except as noted: Yes
Constitutional: Reports Fatigue; Denies Fever or Chills
EENT: Reports Runny Nose; Denies Tearing or Sore Throat
Respiratory: Reports Cough (Dry)
Cardiac: Denies Chest Pain, Diaphoresis, Palpitations or Syncope
Abdomen/GI: Denies Abdominal Pain, Nausea, Vomiting, Diarrhea, Constipated, Bloody Stools or Black Stools
: Denies Dysuria, Frequency, Flank Pain, Incontinence, Difficulty Voiding, Urgency or Bleeding
Musculoskeletal: Denies Joint Pain or Edema
Skin: Denies Itching or Rash
Neurological: Reports Weakness (Generalized); Denies Dizzy or Headache
Endocrine: Reports No Symptoms
Hematologic/Lymphatic: Reports No Symptoms
Psych: Reports Anxiety
Physical Exam
Vital Signs
Vital Signs
Temp Pulse Resp BP Pulse Ox
98.1 F 83 25 126/54 98
09/21/24 10:02 09/21/24 12:00 09/21/24 12:00 09/21/24 12:00 09/21/24 10:02
Physical Exam
General: Comfortable and Cachectic; No Fever or Chills
HEENT: NormoCephalic, Anicteric, PERRLA, [place] Conjunctivae, No Ptosis, Neck Nontender and Other (Bilateral red turbinates, rhinorrhea, point tenderness between eyes and top of nose)
Respiratory: Clear; No Wheezes, Rales or Rhonchi
Cardiac: S1/S2 and Regular Rhythm; No Murmur, Rub, Gallop or Peripheral Edema
Breast: Deferred by me
GI: Soft, Non Tender, Non Distended, Normal Bowel Sounds and No Hepatosplenomegaly
Genito-urinary: Deferred by me
Musculoskeletal: No Clubbing, No Cyanosis and No Edema
Skin: Warm and Dry; No Rash or Jaundice
Neuro: AO x 3, No Motor Deficits, Nonfocal/grossly intact, Cranial Nerves Intact and No Sensory Deficits; No Slurred Speech, Facial Droop, Tremors or Sedated
Laboratory Results
-
Laboratory Results
Lactic Acid 0.9 mmol/L (0.7-2.0) 09/21/24 11:42
Data Reviewed
-
Lab Data: Labs Reviewed by me
Impression/Plan
-
Impression/plan:
Admit to [facility]
#Acute on Chronic leukocytosis possibly 2/2 Steroids vs sinusitis vs other bacteril source
WBC 16.1 was 9.7 on 09/14/2024 and 33.2 on 09/04/24
Sinus point tenderness with rhinorrhea and intermittent dry cough x 1 week, frontal sinus headache today 09/21/2024
-COVID/flu-Negative
-CXR negative
-Check lactic acid, ESR, CRP
-Will continue Tylenol
-Stop prednisone 2 doses left 10 mg for chest rash resolved thought to be related to prior Doxy
#Acute rhinorrhea
-Will start [place] nasal spray
recommend OTC Flonase or Nasonex
-Tylenol as needed for headache
# History of ITP
PLT 478
-follows up with Dr. Stacey Cortes
NPLATE Infusion received 09/14/24-typically receives every
-Patient was seen by heme today Wednesday09/21/2024 Nplate infusion was held by hematology
# 09/04/2024 recent sepsis from E. coli UTI-resolved patient denies symptoms
Had WBC 33 on admission
-Ceftriaxone transition to p.o. doxycycline finished 09/19/2024. Possibility of interstitial cystitis on CT.
-Urinalysis today negative-patient denies any urinary symptoms
#History of burning mouth syndrome
-Patient knows her specific triggers and will order based on that
#Chronic protein malnutrition
Eats [place] instant breakfast with 15 g scoop protein powder, 1 yogurt for lunch, however roll with belt cheese for dinner applesauce with pills only 1 section of a 5 inch small apple pie
-Consult dietary
-Add Ensure Enlive vanilla twice daily
# Recent fall September 2024
-no injuries noted on CAT scans
-No falls since admission 09/04/2024
-Fall precaution
-PT/OT
# Acute kidney injury with metabolic acidosis
DC IV fluids. Creatinine back to baseline.
# Hyponatremia hx
NA 132
# Slightly elevated AST - recent admission September 2024
AST 23
# Glaucoma
-continue Cosopt, Alphagan, brimonidine eyedrops
# Anxiety
-Patient reports she receives Ativan 1 mg at 06, 12, 18, 00
Chronic ambulatory dysfunction
Uses walker and home, prior cane to September admission, uses wheelchair outside of home
# DVT prophylaxis-SCDs
Full code per patient with daughter Kelley at bedside
[2024-09-21 14:41] LABS: ALT (SGPT) 20 U/L (0-35); AST (SGOT) 26 U/L (14-36); Albumin 4.2 g/dl (3.5-5.0); Alkaline Phosphatase 88 U/L (38-126); Blood Urea Nitrogen 24 mg/dl (7-17); Calcium 8.9 mg/dl (8.4-10.2); Carbon Dioxide 28 mmol/L (22-30); Chloride 95 mmol/L (98-107); Glucose 92 mg/dl (70-99); Potassium 4.1 mmol/L (3.5-5.1); Sodium 132 mmol/L (135-145); Total Bilirubin 0.8 mg/dl (0.2-1.3); Total Protein 6.7 g/dl (6.3-8.2); eGFR 50.17
--- NOTE | 2024-09-21 14:47 | W.PN.UPDATE ---
Update Note
Progress Note Update
This is an addendum to the H&P written by Arlene Vargas on 09/21/2024. Patient seen and examined independently with [employer].
83-year-old female past medical history of ITP, anxiety, presenting with generalized weakness and confusion and anxiety. She had outpatient labs checked by her mixing picker tender showing elevated white cell count referred to the emergency room. She had
mild intermittent cough last week but currently denies any upper respiratory symptoms.
She has some occasional rhinorrhea and forehead pain but denies any significant cough currently. No vomiting or diarrhea. She developed a rash thought to be secondary to recent doxycycline versus eczema and is currently finishing a course of
prednisone.
She recently was admitted from 09/04 to 09/07 for E. coli UTI. She completed antibiotics 2 days ago.
CBC shows white cell of 16. CMP pending.
COVID and flu negative. Chest x-ray appears unremarkable although report pending. Urinalysis unimpressive.
Unclear if patient has true infection. Possible she could have URI versus acute sinusitis although symptoms very mild. Leukocytosis likely secondary to recent steroids. Stop further steroids as rash is resolved. Check ESR and CRP. Blood
cultures pending and hold off antibiotics.
--- NOTE | 2024-09-21 17:51 | PTCARENOTE ---
09/21- Patient transferred and oriented to unit without issue. AAOX3, MedSurg. Standby Assist with a Walker but independent. Patient has no current complaints.
[2024-09-21] MEDS: ATIVAN 1 MG PO (17:55)
[2024-09-21] MEDS: ALPHAGAN P 0.1% EYE DROPS BOTH EYES (21:32)
[2024-09-21] MEDS: COSOPT EYE DROPS BOTH EYES (21:32)
[2024-09-21] MEDS: TYLENOL ORAL SOLUTION 650 MG PO (22:21)
[2024-09-22] MEDS: ATIVAN 1 MG PO ×3 (00:28→12:48)
[2024-09-22 05:23] VITALS: BMI 19.6
--- NOTE | 2024-09-22 06:22 | W.PN.HOSP.TC ---
Today's Communication/Plan
-
Discharge
Assessment / Plan
Assessment / Plan
Physical Exam
General: Comfortable and Cachectic; No Fever or Chills
HEENT: NormoCephalic, Anicteric, PERRLA, [place] Conjunctivae, No Ptosis
Respiratory: Clear; No Wheezes, Rales or Rhonchi
Cardiac: S1/S2 and Regular Rhythm; No Murmur, Rub, Gallop or Peripheral Edema
GI: Soft, Non Tender, Non Distended, Normal Bowel Sounds and No Hepatosplenomegaly
Musculoskeletal: No Clubbing, No Cyanosis and No Edema
Skin: Warm and Dry; No Jaundice
Neuro: AO x 3
Psych: calm
83F ITP on weekly Nplate injections outpt, recent hospitalization for urosepsis, here for evaluation Leukocytosis since resolved with discontinuation Prednisone
#Acute leukocytosis 2/ Steroids
-COVID/flu-Negative
-CXR negative
-lactic acid ESR wnl, CRP mildly elevated
-Stop prednisone 2 doses left 10 mg for chest rash resolved thought to be related to prior Doxy
-Leukocytosis since resolved
#Acute rhinorrhea
-[place] nasal spray prn prescribed however patient has not required since admission
-Tylenol as needed for headache
# History of ITP
PLT 478 on admission
-follows with Dr. Stacey Cortes
NPLATE Infusion received 09/14/24-typically receives every
-Wednesday09/21/2024 Nplate infusion held by hematology
# 09/04/2024 recent sepsis from E. coli UTI-resolved patient denies symptoms
Had WBC 33 on admission
-Ceftriaxone transition to p.o. doxycycline finished 09/19/2024
-Repeat Urinalysis negative-patient denies any urinary symptoms
#CKDIII
Cr appears baseline stable 1.1
# Mild Hyponatremia
# Glaucoma
-continue Cosopt, Alphagan, brimonidine eyedrops
# Anxiety
-cont home ativan
Chronic ambulatory dysfunction
Uses walker and home, prior can to September, uses wheelchair outside of home
# DVT prophylaxis-SCDs
Full Code
Medically stable for discharge home with VN and outpatient follow up recommendations.
Total Time Preparing Discharge ___40____ minutes including examination of the patient, summary of the hospital stay, instructions for continuing care to all relevant caregivers; and preparation of discharge records, prescriptions, and referral
forms if necessary.
Anticipated Discharge: Today
Subjective/Interval History
-
Date of Service: September 22, 2024
Seen and examined at bedside in no acute distress sitting up comfortably in bed. Reports overall feeling well. Denies new acute issues. Eager to go home.
Objective Data
-
Labs:
Laboratory Results
09/22/24
06:00
WBC Pending
Hgb Pending
Hct Pending
Plt Count Pending
Sodium Pending
Potassium Pending
Chloride Pending
Carbon Dioxide Pending
BUN Pending
Creatinine Pending
Glucose Pending
Calcium Pending
Total Bilirubin Pending
AST Pending
ALT Pending
Alkaline Phosphatase Pending
Vital Signs:
Vital Signs
Temp Pulse Resp BP Pulse Ox
97.7 F 79 18 141/83 96
09/21/24 23:52 09/21/24 23:52 09/21/24 23:52 09/21/24 23:52 09/21/24 23:52
I&O
09/20/24 09/21/24 09/22/24
06:59 06:59 06:59
Intake Total 120 / 120
Balance 120 / 120
[2024-09-22 07:00] VITALS: BP 133/68
[2024-09-22 07:02] LABS: % Basophils 1.2 % (0-2); % Eosinophils 6.7 % (0-6); % Immature Granulocytes 1.1 % (0-0.5); % Lymphocytes 18.3 % (20.5-51.1); % Monocytes 7.1 % (1.7-9.3); % Neutrophils 65.6 % (42.2-75.2); Absolute Basophils 0.1 10^3/uL (0-0.2); Absolute Eosinophils 0.7 10^3/uL (0-0.7); Absolute Immature Granulocytes 0.1 10^3/uL (0-0.05); Absolute Lymphocytes 1.8 10^3/uL (1.2-3.4); Absolute Monocytes 0.7 10^3/uL (0.1-0.6); Absolute Neutrophils 6.3 10^3/uL (1.4-6.5); Hematocrit 34.2 % (37.0-47.0); Hemoglobin 11.5 g/dL (12.0-16.0); Mean Corp Hgb Conc. 33.6 g/dL (33.0-37.0); Mean Corpuscular Hgb 31.1 pg (27.0-31.0); Mean Corpuscular Volume 92.4 fL (81.0-99.0); Mean Platelet Volume 9.3 fL (7.4-10.4); Nucleated Red Blood Cells % 0 %; Platelet Count 404 10^3/uL (130-400); Red Cell Dist. Width 13.2 % (11.5-14.5); White Blood Cell Count 9.7 10^3/uL (4.8-10.8)
[2024-09-22 07:17] LABS: ALT (SGPT) 16 U/L (0-35); AST (SGOT) 21 U/L (14-36); Albumin 3.6 g/dl (3.5-5.0); Alkaline Phosphatase 79 U/L (38-126); Blood Urea Nitrogen 15 mg/dl (7-17); Calcium 8.4 mg/dl (8.4-10.2); Carbon Dioxide 26 mmol/L (22-30); Chloride 100 mmol/L (98-107); Estimated Creatinine Clearance 34 ml/min; Glucose 88 mg/dl (70-99); Potassium 3.8 mmol/L (3.5-5.1); Sodium 134 mmol/L (135-145); Total Protein 5.9 g/dl (6.3-8.2); eGFR 50.17
[2024-09-22 08:29] LABS: Erythrocyte Sed Rate 16 mm/hour (0-20)
[2024-09-22] MEDS: COSOPT EYE DROPS 1 DROP BOTH EYES (09:34)
[2024-09-22] MEDS: ALPHAGAN P 0.1% EYE DROPS 1 DROP BOTH EYES (09:35)
[2024-09-22] MEDS: TYLENOL ORAL SOLUTION 650 MG PO (09:42)
--- NOTE | 2024-09-22 14:58 | CM ---
territory manager general sales reviewed patient's chart and met with patient and patient lives in law suite next to son's home, patient is independent with adl's and uses cane and walker with ambulation. patient is for discharge to home when stable with Roderick
visiting nurses resumption of care.
PCP: Dr. Campos
Pharmacy: [facility]
Plan; Home with Roderick visiting nurses
[phone]
[2024-09-22 15:00] VITALS: BP 138/72
[2024-09-22 15:42] VITALS: BP 129/62; PULSE 84; O2SAT 62
--- NOTE | 2024-09-22 16:09 | W.DCSUMMARY ---
Discharge Summary
Discharge Data
Date of Admission: 09/21/24
Date of Discharge: 09/22/24
-
Pending Results: Yes
Additional Pending Results:
official culture results
Discharge Plan
-
Patient Disposition: Home with Home Care
Discharge Diagnosis/Procedures: Acute Leukocytosis likely due to steroids
Resolved with discontinuation steroids
Severe acute infection ruled out
Chronic Kidney Disease Stage III
Condition: Fair
Diet: Regular
Activity: As tolerated
Driving Restrictions: Not until seen by your Dr
Bathing Restrictions: None
Blood Work: Please repeat CBC and BMP with primary care provider or Hematology in 1 week of discharge.
Other Services: PT and OT
Activity Restrictions/Additional Instructions:
Follow up with Primary care provider and Finishing Supervisor in 1 week of discharge.
Leukocytosis likely due to steroids (prednisone) since discontinued. Please follow up with primary care provider and/or other healthcare provider involved in your care before considering to resume.
Referrals:
Alexandr Campos MD [Family Provider] - in one week
Prescriptions:
Continued
lorazepam 1 MG tablet
1 mg PO QID@06,12,17,00
dorzolamide-timolol [Cosopt] 22.3-6.8 mg/mL Drops
1 drp BOTH EYES BID
brimonidine [Alphagan P] 0.1 % Drops
1 drp BOTH EYES BID
acetaminophen 160 mg/5 mL (5 mL) Solution
0 mg PO BIDPRN PRN (Reason: mild pain)
Held
Nplate 125 mcg Recon Soln
0 mcg SC TH
Hold Instructions: Follow up with Finishing Supervisor to determine when appropriate to resume
Discontinued
prednisone 10 mg Tablet
10 mg PO DAILY@1200
Discharge Orders:
Discharge Patient (As Directed); Ordered 09/22/24
Ordered By: Beto Serrato
Discharge Date and Time
Print Language: DANISH
== END 2024-09-22 16:45 | disposition home health service (06) ==
LOC: 4 WEST ACU 15:27
PROVIDERS: Clinical Nurse Specialist Family Health; ADMITTING PHYSICIAN Hospitalist; ATTENDING PHYSICIAN Internal Medicine; EMERGENCY PHYSICIAN Emergency Medicine; FAMILY PHYSICIAN Internal Medicine
DX: D72.829 Elevated white blood cell count, unspecified (principal); R79.89 Other specified abnormal findings of blood chemistry; R05.9 Cough, unspecified; R51.9 Headache, unspecified; J34.89 Other specified disorders of nose and nasal sinuses; D69.3 Immune thrombocytopenic purpura; R41.0 Disorientation, unspecified; F41.9 Anxiety disorder, unspecified; H40.9 Unspecified glaucoma; R64 Cachexia; F50.9 Eating disorder, unspecified; N18.30 Chronic kidney disease, stage 3 unspecified; R21 Rash and other nonspecific skin eruption; E46 Unspecified protein-calorie malnutrition; E87.1 Hypo-osmolality and hyponatremia; N17.9 Acute kidney failure, unspecified; E87.20 Acidosis, unspecified; R26.2 Difficulty in walking, not elsewhere classified; R13.10 Dysphagia, unspecified; Z68.1 Body mass index [BMI] 19.9 or less, adult; Z87.440 Personal history of urinary (tract) infections; Z11.52 Encounter for screening for COVID-19; Z60.2 Problems related to living alone; Z88.6 Allergy status to analgesic agent; Z88.1 Allergy status to other antibiotic agents; Z88.0 Allergy status to penicillin; Z88.2 Allergy status to sulfonamides; Z88.8 Allergy status to other drugs, medicaments and biological substances; Z79.52 Long term (current) use of systemic steroids; Z91.81 History of falling
CPT/HCPCS: 36415; 51701; 71046; 80053; 81003; 81015; 83605; 85025; 85652; 86140; 87040; 87502; 87811; 96360; 97162; 99285; G0378

== ENCOUNTER → 2024-09-28 08:57 | Outpatient (REF) | payer MEDICARE, SELFPAY ==
[2024-09-28 09:21] LABS: % Basophils 0.6 % (0-2); % Eosinophils 2.2 % (0-6); % Immature Granulocytes 0.3 % (0-0.5); % Lymphocytes 15.7 % (20.5-51.1); % Monocytes 6.2 % (1.7-9.3); Absolute Basophils 0.1 10^3/uL (0-0.2); Absolute Eosinophils 0.2 10^3/uL (0-0.7); Absolute Lymphocytes 1.5 10^3/uL (1.2-3.4); Absolute Monocytes 0.6 10^3/uL (0.1-0.6); Absolute Neutrophils 7.3 10^3/uL (1.4-6.5); Hematocrit 36.6 % (37.0-47.0); Hemoglobin 12.6 g/dL (12.0-16.0); Mean Corp Hgb Conc. 34.4 g/dL (33.0-37.0); Mean Corpuscular Hgb 31.1 pg (27.0-31.0); Mean Corpuscular Volume 90.4 fL (81.0-99.0); Mean Platelet Volume 9.1 fL (7.4-10.4); Platelet Count 113 10^3/uL (130-400); Red Blood Cell Count 4.05 10^6/uL (4.20-5.40); White Blood Cell Count 9.7 10^3/uL (4.8-10.8)
== END ==
LOC: OIDL 08:57
PROVIDERS: ATTENDING PHYSICIAN Internal Medicine Hematology & Oncology
DX: D69.3 Immune thrombocytopenic purpura (principal)
CPT/HCPCS: 36415; 85025

== ENCOUNTER → 2024-10-05 08:56 | Outpatient (REF) | payer MEDICARE, SELFPAY ==
[2024-10-05 09:07] LABS: % Basophils 0.7 % (0-2); % Eosinophils 3.7 % (0-6); % Immature Granulocytes 0.1 % (0-0.5); % Lymphocytes 19.3 % (20.5-51.1); % Monocytes 7.1 % (1.7-9.3); % Neutrophils 69.1 % (42.2-75.2); Absolute Basophils 0.1 10^3/uL (0-0.2); Absolute Eosinophils 0.3 10^3/uL (0-0.7); Absolute Lymphocytes 1.7 10^3/uL (1.2-3.4); Absolute Monocytes 0.6 10^3/uL (0.1-0.6); Absolute Neutrophils 6.2 10^3/uL (1.4-6.5); Hemoglobin 12.7 g/dL (12.0-16.0); Mean Corp Hgb Conc. 34.3 g/dL (33.0-37.0); Mean Corpuscular Hgb 31.3 pg (27.0-31.0); Mean Corpuscular Volume 91.1 fL (81.0-99.0); Mean Platelet Volume 10.5 fL (7.4-10.4); Platelet Count 199 10^3/uL (130-400); Red Blood Cell Count 4.06 10^6/uL (4.20-5.40); Red Cell Dist. Width 13.6 % (11.5-14.5)
== END ==
LOC: OIDL 08:56
PROVIDERS: ATTENDING PHYSICIAN Internal Medicine Hematology & Oncology; FAMILY PHYSICIAN Internal Medicine
DX: D69.3 Immune thrombocytopenic purpura (principal)
CPT/HCPCS: 36415; 85025

== ENCOUNTER → 2024-10-12 08:57 | Outpatient (REF) | payer MEDICARE, SELFPAY ==
[2024-10-12 09:11] LABS: % Basophils 0.8 % (0-2); % Eosinophils 3.2 % (0-6); % Immature Granulocytes 0.3 % (0-0.5); % Lymphocytes 15.1 % (20.5-51.1); % Monocytes 5.4 % (1.7-9.3); % Neutrophils 75.2 % (42.2-75.2); Absolute Basophils 0.1 10^3/uL (0-0.2); Absolute Eosinophils 0.4 10^3/uL (0-0.7); Absolute Lymphocytes 1.7 10^3/uL (1.2-3.4); Absolute Monocytes 0.6 10^3/uL (0.1-0.6); Absolute Neutrophils 8.6 10^3/uL (1.4-6.5); Hematocrit 38.8 % (37.0-47.0); Hemoglobin 13.3 g/dL (12.0-16.0); Mean Corp Hgb Conc. 34.3 g/dL (33.0-37.0); Mean Corpuscular Hgb 31.1 pg (27.0-31.0); Mean Corpuscular Volume 90.9 fL (81.0-99.0); Mean Platelet Volume 9.6 fL (7.4-10.4); Platelet Count 236 10^3/uL (130-400); Red Blood Cell Count 4.27 10^6/uL (4.20-5.40); Red Cell Dist. Width 13.5 % (11.5-14.5); White Blood Cell Count 11.5 10^3/uL (4.8-10.8)
== END ==
LOC: OIDL 08:57
PROVIDERS: ATTENDING PHYSICIAN Internal Medicine Hematology & Oncology; FAMILY PHYSICIAN Internal Medicine
DX: D69.3 Immune thrombocytopenic purpura (principal)
CPT/HCPCS: 36415; 85025

== ENCOUNTER → 2024-10-19 08:59 | Outpatient (REF) | payer MEDICARE, SELFPAY ==
[2024-10-19 09:35] LABS: % Eosinophils 2.4 % (0-6); % Immature Granulocytes 0.1 % (0-0.5); % Lymphocytes 17.2 % (20.5-51.1); % Monocytes 6.6 % (1.7-9.3); % Neutrophils 72.7 % (42.2-75.2); Absolute Basophils 0.1 10^3/uL (0-0.2); Absolute Eosinophils 0.2 10^3/uL (0-0.7); Absolute Lymphocytes 1.4 10^3/uL (1.2-3.4); Absolute Monocytes 0.5 10^3/uL (0.1-0.6); Absolute Neutrophils 5.8 10^3/uL (1.4-6.5); Hematocrit 37.3 % (37.0-47.0); Hemoglobin 12.7 g/dL (12.0-16.0); Mean Corpuscular Hgb 30.7 pg (27.0-31.0); Mean Corpuscular Volume 90.1 fL (81.0-99.0); Mean Platelet Volume 9.7 fL (7.4-10.4); Platelet Count 186 10^3/uL (130-400); Red Blood Cell Count 4.14 10^6/uL (4.20-5.40); Red Cell Dist. Width 13.2 % (11.5-14.5)
== END ==
LOC: OIDL 08:59
PROVIDERS: ATTENDING PHYSICIAN Internal Medicine Hematology & Oncology; FAMILY PHYSICIAN Internal Medicine
DX: D69.3 Immune thrombocytopenic purpura (principal)
CPT/HCPCS: 36415; 85025

== ENCOUNTER → 2024-10-26 10:00 | Outpatient (REF) | payer MEDICARE, SELFPAY ==
[2024-10-26 10:07] LABS: % Basophils 1.4 % (0-2); % Eosinophils 3.3 % (0-6); % Immature Granulocytes 0.2 % (0-0.5); % Lymphocytes 16.6 % (20.5-51.1); % Neutrophils 72.5 % (42.2-75.2); Absolute Basophils 0.1 10^3/uL (0-0.2); Absolute Eosinophils 0.3 10^3/uL (0-0.7); Absolute Lymphocytes 1.4 10^3/uL (1.2-3.4); Absolute Monocytes 0.5 10^3/uL (0.1-0.6); Absolute Neutrophils 5.9 10^3/uL (1.4-6.5); Hematocrit 37.6 % (37.0-47.0); Mean Corp Hgb Conc. 34.6 g/dL (33.0-37.0); Mean Corpuscular Hgb 31.1 pg (27.0-31.0); Platelet Count 126 10^3/uL (130-400); Red Blood Cell Count 4.18 10^6/uL (4.20-5.40); Red Cell Dist. Width 13.2 % (11.5-14.5); White Blood Cell Count 8.1 10^3/uL (4.8-10.8)
== END ==
LOC: OIDL 10:00
PROVIDERS: ATTENDING PHYSICIAN Internal Medicine Hematology & Oncology; FAMILY PHYSICIAN Internal Medicine
DX: D69.3 Immune thrombocytopenic purpura (principal)
CPT/HCPCS: 85025

== ENCOUNTER → 2024-11-02 09:08 | Outpatient (REF) | payer MEDICARE, SELFPAY ==
[2024-11-02 09:23] LABS: % Basophils 1.7 % (0-2); % Eosinophils 3.9 % (0-6); % Immature Granulocytes 0.1 % (0-0.5); % Lymphocytes 18.7 % (20.5-51.1); % Monocytes 6.8 % (1.7-9.3); % Neutrophils 68.8 % (42.2-75.2); Absolute Basophils 0.1 10^3/uL (0-0.2); Absolute Eosinophils 0.3 10^3/uL (0-0.7); Absolute Lymphocytes 1.5 10^3/uL (1.2-3.4); Absolute Monocytes 0.5 10^3/uL (0.1-0.6); Absolute Neutrophils 5.3 10^3/uL (1.4-6.5); Hematocrit 39.1 % (37.0-47.0); Hemoglobin 13.4 g/dL (12.0-16.0); Mean Corp Hgb Conc. 34.3 g/dL (33.0-37.0); Mean Corpuscular Hgb 31.1 pg (27.0-31.0); Mean Corpuscular Volume 90.7 fL (81.0-99.0); Mean Platelet Volume 9.9 fL (7.4-10.4); Platelet Count 192 10^3/uL (130-400); Red Blood Cell Count 4.31 10^6/uL (4.20-5.40); Red Cell Dist. Width 13.2 % (11.5-14.5); White Blood Cell Count 7.8 10^3/uL (4.8-10.8)
== END ==
LOC: OIDL 09:08
PROVIDERS: ATTENDING PHYSICIAN Internal Medicine Hematology & Oncology; FAMILY PHYSICIAN Internal Medicine
DX: D69.3 Immune thrombocytopenic purpura (principal); G62.9 Polyneuropathy, unspecified; Z83.49 Family history of other endocrine, nutritional and metabolic diseases; N39.0 Urinary tract infection, site not specified
CPT/HCPCS: 36415; 85025

== ENCOUNTER → 2024-11-09 08:58 | Outpatient (REF) | payer MEDICARE, SELFPAY ==
[2024-11-09 09:09] LABS: % Basophils 1.2 % (0-2); % Eosinophils 4.1 % (0-6); % Immature Granulocytes 0.1 % (0-0.5); % Lymphocytes 17.4 % (20.5-51.1); % Neutrophils 71.2 % (42.2-75.2); Absolute Basophils 0.1 10^3/uL (0-0.2); Absolute Eosinophils 0.3 10^3/uL (0-0.7); Absolute Lymphocytes 1.3 10^3/uL (1.2-3.4); Absolute Monocytes 0.5 10^3/uL (0.1-0.6); Absolute Neutrophils 5.4 10^3/uL (1.4-6.5); Hemoglobin 12.8 g/dL (12.0-16.0); Mean Corp Hgb Conc. 34.6 g/dL (33.0-37.0); Mean Corpuscular Hgb 31.1 pg (27.0-31.0); Mean Platelet Volume 9.5 fL (7.4-10.4); Platelet Count 121 10^3/uL (130-400); Red Blood Cell Count 4.11 10^6/uL (4.20-5.40); Red Cell Dist. Width 13.3 % (11.5-14.5); White Blood Cell Count 7.5 10^3/uL (4.8-10.8)
== END ==
LOC: OIDL 08:58
PROVIDERS: ATTENDING PHYSICIAN Internal Medicine Hematology & Oncology; FAMILY PHYSICIAN Internal Medicine
DX: D69.3 Immune thrombocytopenic purpura (principal); G62.9 Polyneuropathy, unspecified; Z83.49 Family history of other endocrine, nutritional and metabolic diseases; N39.0 Urinary tract infection, site not specified
CPT/HCPCS: 36415; 85025

== ENCOUNTER → 2024-11-16 09:29 | Outpatient (REF) | payer MEDICARE, SELFPAY ==
[2024-11-16 09:40] LABS: % Eosinophils 2.5 % (0-6); % Immature Granulocytes 0.1 % (0-0.5); % Lymphocytes 18.9 % (20.5-51.1); % Monocytes 6.6 % (1.7-9.3); % Neutrophils 70.9 % (42.2-75.2); Absolute Basophils 0.1 10^3/uL (0-0.2); Absolute Eosinophils 0.2 10^3/uL (0-0.7); Absolute Lymphocytes 1.5 10^3/uL (1.2-3.4); Absolute Monocytes 0.5 10^3/uL (0.1-0.6); Absolute Neutrophils 5.6 10^3/uL (1.4-6.5); Hematocrit 38.5 % (37.0-47.0); Mean Corp Hgb Conc. 33.8 g/dL (33.0-37.0); Mean Corpuscular Hgb 30.6 pg (27.0-31.0); Mean Corpuscular Volume 90.6 fL (81.0-99.0); Platelet Count 93 10^3/uL (130-400); Red Blood Cell Count 4.25 10^6/uL (4.20-5.40); Red Cell Dist. Width 13.1 % (11.5-14.5); White Blood Cell Count 7.9 10^3/uL (4.8-10.8)
== END ==
LOC: OIDL 09:29
PROVIDERS: ATTENDING PHYSICIAN Internal Medicine Hematology & Oncology; FAMILY PHYSICIAN Internal Medicine
DX: D69.3 Immune thrombocytopenic purpura (principal); G62.9 Polyneuropathy, unspecified; Z83.49 Family history of other endocrine, nutritional and metabolic diseases; N39.0 Urinary tract infection, site not specified
CPT/HCPCS: 36415; 85025

== ENCOUNTER → 2024-11-23 09:04 | Outpatient (REF) | payer MEDICARE, SELFPAY ==
[2024-11-23 09:14] LABS: % Basophils 1.1 % (0-2); % Eosinophils 2.8 % (0-6); % Immature Granulocytes 0.1 % (0-0.5); % Lymphocytes 17.4 % (20.5-51.1); % Monocytes 6.5 % (1.7-9.3); % Neutrophils 72.1 % (42.2-75.2); Absolute Basophils 0.1 10^3/uL (0-0.2); Absolute Eosinophils 0.2 10^3/uL (0-0.7); Absolute Lymphocytes 1.4 10^3/uL (1.2-3.4); Absolute Monocytes 0.5 10^3/uL (0.1-0.6); Absolute Neutrophils 5.7 10^3/uL (1.4-6.5); Hemoglobin 12.9 g/dL (12.0-16.0); Mean Corp Hgb Conc. 34.9 g/dL (33.0-37.0); Mean Corpuscular Hgb 31.1 pg (27.0-31.0); Mean Corpuscular Volume 89.2 fL (81.0-99.0); Mean Platelet Volume 10.3 fL (7.4-10.4); Platelet Count 76 10^3/uL (130-400); Red Blood Cell Count 4.15 10^6/uL (4.20-5.40); Red Cell Dist. Width 13.1 % (11.5-14.5); White Blood Cell Count 7.9 10^3/uL (4.8-10.8)
== END ==
LOC: OIDL 09:04
PROVIDERS: ATTENDING PHYSICIAN Internal Medicine Hematology & Oncology; FAMILY PHYSICIAN Internal Medicine
DX: D69.3 Immune thrombocytopenic purpura (principal)
CPT/HCPCS: 36415; 85025

== ENCOUNTER → 2024-11-30 09:27 | Outpatient (REF) | payer MEDICARE, SELFPAY ==
[2024-11-30 10:07] LABS: % Basophils 1.4 % (0-2); % Eosinophils 2.3 % (0-6); % Immature Granulocytes 0.3 % (0-0.5); % Lymphocytes 22.2 % (20.5-51.1); % Monocytes 6.7 % (1.7-9.3); % Neutrophils 67.1 % (42.2-75.2); Absolute Basophils 0.1 10^3/uL (0-0.2); Absolute Eosinophils 0.2 10^3/uL (0-0.7); Absolute Lymphocytes 1.6 10^3/uL (1.2-3.4); Absolute Monocytes 0.5 10^3/uL (0.1-0.6); Absolute Neutrophils 4.9 10^3/uL (1.4-6.5); Hematocrit 39.3 % (37.0-47.0); Hemoglobin 13.6 g/dL (12.0-16.0); Mean Corp Hgb Conc. 34.6 g/dL (33.0-37.0); Mean Corpuscular Hgb 31.1 pg (27.0-31.0); Mean Corpuscular Volume 89.7 fL (81.0-99.0); Mean Platelet Volume 10.9 fL (7.4-10.4); Nucleated Red Blood Cells % 0 %; Platelet Count 128 10^3/uL (130-400); Red Blood Cell Count 4.38 10^6/uL (4.20-5.40); Red Cell Dist. Width 13.2 % (11.5-14.5); White Blood Cell Count 7.3 10^3/uL (4.8-10.8)
== END ==
LOC: OIDL 09:27
PROVIDERS: ATTENDING PHYSICIAN Internal Medicine Hematology & Oncology
DX: D69.3 Immune thrombocytopenic purpura (principal)
CPT/HCPCS: 85025

== ENCOUNTER → 2024-12-07 09:09 | Outpatient (REF) | payer MEDICARE, SELFPAY ==
[2024-12-07 09:40] LABS: % Basophils 0.7 % (0-2); % Eosinophils 3.8 % (0-6); % Immature Granulocytes 0.3 % (0-0.5); % Lymphocytes 12.8 % (20.5-51.1); % Monocytes 7.1 % (1.7-9.3); % Neutrophils 75.3 % (42.2-75.2); Absolute Basophils 0.1 10^3/uL (0-0.2); Absolute Eosinophils 0.4 10^3/uL (0-0.7); Absolute Lymphocytes 1.2 10^3/uL (1.2-3.4); Absolute Monocytes 0.7 10^3/uL (0.1-0.6); Absolute Neutrophils 7.2 10^3/uL (1.4-6.5); Hematocrit 35.6 % (37.0-47.0); Hemoglobin 12.7 g/dL (12.0-16.0); Mean Corp Hgb Conc. 35.7 g/dL (33.0-37.0); Mean Corpuscular Hgb 31.4 pg (27.0-31.0); Mean Corpuscular Volume 87.9 fL (81.0-99.0); Mean Platelet Volume 10.5 fL (7.4-10.4); Platelet Count 112 10^3/uL (130-400); Red Blood Cell Count 4.05 10^6/uL (4.20-5.40); Red Cell Dist. Width 12.9 % (11.5-14.5); White Blood Cell Count 9.5 10^3/uL (4.8-10.8)
== END ==
LOC: OIDL 09:09
PROVIDERS: ATTENDING PHYSICIAN Internal Medicine Hematology & Oncology
DX: D69.3 Immune thrombocytopenic purpura (principal)
CPT/HCPCS: 36415; 85025

== ENCOUNTER → 2024-12-14 09:04 | Outpatient (REF) | payer MEDICARE, SELFPAY ==
[2024-12-14 09:21] LABS: % Basophils 1.5 % (0-2); % Eosinophils 2.3 % (0-6); % Immature Granulocytes 0.2 % (0-0.5); % Lymphocytes 14.8 % (20.5-51.1); % Monocytes 6.3 % (1.7-9.3); % Neutrophils 74.9 % (42.2-75.2); Absolute Basophils 0.1 10^3/uL (0-0.2); Absolute Eosinophils 0.2 10^3/uL (0-0.7); Absolute Lymphocytes 1.2 10^3/uL (1.2-3.4); Absolute Monocytes 0.5 10^3/uL (0.1-0.6); Absolute Neutrophils 6.2 10^3/uL (1.4-6.5); Hematocrit 36.8 % (37.0-47.0); Hemoglobin 12.7 g/dL (12.0-16.0); Mean Corp Hgb Conc. 34.5 g/dL (33.0-37.0); Mean Corpuscular Hgb 30.7 pg (27.0-31.0); Mean Corpuscular Volume 88.9 fL (81.0-99.0); Mean Platelet Volume 9.3 fL (7.4-10.4); Platelet Count 333 10^3/uL (130-400); Red Blood Cell Count 4.14 10^6/uL (4.20-5.40); Red Cell Dist. Width 12.6 % (11.5-14.5); White Blood Cell Count 8.2 10^3/uL (4.8-10.8)
== END ==
LOC: OIDL 09:04
PROVIDERS: ATTENDING PHYSICIAN Internal Medicine Hematology & Oncology; FAMILY PHYSICIAN Internal Medicine
DX: D69.3 Immune thrombocytopenic purpura (principal); G62.9 Polyneuropathy, unspecified; Z83.49 Family history of other endocrine, nutritional and metabolic diseases; N39.0 Urinary tract infection, site not specified
CPT/HCPCS: 36415; 85025

== ENCOUNTER → 2024-12-21 08:59 | Outpatient (REF) | payer MEDICARE, SELFPAY ==
[2024-12-21 09:08] LABS: % Basophils 0.9 % (0-2); % Eosinophils 2.6 % (0-6); % Immature Granulocytes 0.2 % (0-0.5); % Lymphocytes 19.7 % (20.5-51.1); % Neutrophils 70.6 % (42.2-75.2); Absolute Basophils 0.1 10^3/uL (0-0.2); Absolute Eosinophils 0.3 10^3/uL (0-0.7); Absolute Lymphocytes 2.1 10^3/uL (1.2-3.4); Absolute Monocytes 0.6 10^3/uL (0.1-0.6); Absolute Neutrophils 7.4 10^3/uL (1.4-6.5); Hematocrit 38.7 % (37.0-47.0); Hemoglobin 13.3 g/dL (12.0-16.0); Mean Corp Hgb Conc. 34.4 g/dL (33.0-37.0); Mean Corpuscular Hgb 30.6 pg (27.0-31.0); Mean Platelet Volume 9.3 fL (7.4-10.4); Platelet Count 197 10^3/uL (130-400); Red Blood Cell Count 4.35 10^6/uL (4.20-5.40); Red Cell Dist. Width 12.7 % (11.5-14.5); White Blood Cell Count 10.5 10^3/uL (4.8-10.8)
== END ==
LOC: OIDL 08:59
PROVIDERS: ATTENDING PHYSICIAN Internal Medicine Hematology & Oncology
DX: D69.3 Immune thrombocytopenic purpura (principal)
CPT/HCPCS: 36415; 85025

== ENCOUNTER → 2024-12-28 08:59 | Outpatient (REF) | payer MEDICARE, SELFPAY ==
[2024-12-28 09:29] LABS: % Basophils 1.3 % (0-2); % Eosinophils 2.7 % (0-6); % Immature Granulocytes 0.3 % (0-0.5); % Lymphocytes 17.5 % (20.5-51.1); % Monocytes 6.5 % (1.7-9.3); % Neutrophils 71.7 % (42.2-75.2); Absolute Basophils 0.1 10^3/uL (0-0.2); Absolute Eosinophils 0.2 10^3/uL (0-0.7); Absolute Lymphocytes 1.3 10^3/uL (1.2-3.4); Absolute Monocytes 0.5 10^3/uL (0.1-0.6); Absolute Neutrophils 5.5 10^3/uL (1.4-6.5); Hemoglobin 12.8 g/dL (12.0-16.0); Mean Corp Hgb Conc. 34.6 g/dL (33.0-37.0); Mean Corpuscular Hgb 30.6 pg (27.0-31.0); Mean Corpuscular Volume 88.5 fL (81.0-99.0); Mean Platelet Volume 9.7 fL (7.4-10.4); Platelet Count 183 10^3/uL (130-400); Red Blood Cell Count 4.18 10^6/uL (4.20-5.40); Red Cell Dist. Width 12.9 % (11.5-14.5); White Blood Cell Count 7.7 10^3/uL (4.8-10.8)
== END ==
LOC: OIDL 08:59
PROVIDERS: ATTENDING PHYSICIAN Internal Medicine Hematology & Oncology; FAMILY PHYSICIAN Internal Medicine
DX: D69.3 Immune thrombocytopenic purpura (principal); G62.9 Polyneuropathy, unspecified; Z83.49 Family history of other endocrine, nutritional and metabolic diseases; N39.0 Urinary tract infection, site not specified
CPT/HCPCS: 36415; 85025

== ENCOUNTER → 2025-01-04 09:05 | Outpatient (REF) | payer MEDICARE, SELFPAY ==
[2025-01-04 09:19] LABS: % Basophils 1.1 % (0-2); % Eosinophils 3.5 % (0-6); % Immature Granulocytes 0.2 % (0-0.5); % Lymphocytes 18.6 % (20.5-51.1); % Neutrophils 70.6 % (42.2-75.2); Absolute Basophils 0.1 10^3/uL (0-0.2); Absolute Eosinophils 0.3 10^3/uL (0-0.7); Absolute Lymphocytes 1.6 10^3/uL (1.2-3.4); Absolute Monocytes 0.5 10^3/uL (0.1-0.6); Hematocrit 38.4 % (37.0-47.0); Hemoglobin 13.4 g/dL (12.0-16.0); Mean Corp Hgb Conc. 34.9 g/dL (33.0-37.0); Mean Corpuscular Hgb 30.8 pg (27.0-31.0); Mean Corpuscular Volume 88.3 fL (81.0-99.0); Mean Platelet Volume 9.9 fL (7.4-10.4); Platelet Count 131 10^3/uL (130-400); Red Blood Cell Count 4.35 10^6/uL (4.20-5.40); Red Cell Dist. Width 12.9 % (11.5-14.5); White Blood Cell Count 8.5 10^3/uL (4.8-10.8)
== END ==
LOC: OIDL 09:05
PROVIDERS: ATTENDING PHYSICIAN Internal Medicine Hematology & Oncology; FAMILY PHYSICIAN Internal Medicine
DX: D69.3 Immune thrombocytopenic purpura (principal)
CPT/HCPCS: 36415; 85025

== ENCOUNTER → 2025-01-11 09:05 | Outpatient (REF) | payer MEDICARE, SELFPAY ==
[2025-01-11 09:34] LABS: % Basophils 1.1 % (0-2); % Immature Granulocytes 0.1 % (0-0.5); % Lymphocytes 18.2 % (20.5-51.1); % Monocytes 5.7 % (1.7-9.3); % Neutrophils 71.9 % (42.2-75.2); Absolute Basophils 0.1 10^3/uL (0-0.2); Absolute Eosinophils 0.2 10^3/uL (0-0.7); Absolute Lymphocytes 1.3 10^3/uL (1.2-3.4); Absolute Monocytes 0.4 10^3/uL (0.1-0.6); Absolute Neutrophils 5.3 10^3/uL (1.4-6.5); Hematocrit 38.6 % (37.0-47.0); Hemoglobin 13.5 g/dL (12.0-16.0); Mean Corpuscular Hgb 30.8 pg (27.0-31.0); Mean Corpuscular Volume 88.1 fL (81.0-99.0); Mean Platelet Volume 10.4 fL (7.4-10.4); Platelet Count 94 10^3/uL (130-400); Red Blood Cell Count 4.38 10^6/uL (4.20-5.40); Red Cell Dist. Width 12.7 % (11.5-14.5); White Blood Cell Count 7.4 10^3/uL (4.8-10.8)
== END ==
LOC: OIDL 09:05
PROVIDERS: Registered Nurse; ATTENDING PHYSICIAN Internal Medicine Hematology & Oncology; FAMILY PHYSICIAN Internal Medicine
DX: D69.3 Immune thrombocytopenic purpura (principal)
CPT/HCPCS: 36415; 85025; 86850; 86900; 86901

== ENCOUNTER 2025-01-15 11:19 | Emergency (ER) | payer MEDICARE, SELFPAY ==
[2025-01-15 11:22] VITALS: BP 148/96
[2025-01-15 12:18] VITALS: BMI 19.6
--- NOTE | 2025-01-15 13:26 | ED.GENMED ---
History of Present Illness
General
Chief Complaint: Fall
Source: patient and family
Time Seen by Provider: 01/15/25 13:07
History of Present Illness
History of Present Illness:
84-year-old female who was walking on the driveway, tripped and fell landing forward and hitting her face. She was able to get up and walk back to the house which is adjacent to hers where family resides and she was able to call for help. She is
unaware when her last tetanus was. She denies preceding symptoms, loss of consciousness, nausea, vomiting, neck pain, numbness, tingling, focal weakness, chest pain, shortness of breath, abdominal pain. She does have discomfort at the right hand,
left elbow, and her mid face. She notes she has a history of thrombocytopenia which she has checked weekly.
Past History
Past History
ED Past Medical History: Other (ITP, glaucoma, anxiety)
ED Past Surgical History: None
Social History
Tobacco: Non-smoker
Alcohol: None
Drug: None
Living: with family
Employment: Retired
Phy Exam
Physical Exam
Physical Exam:
GENERAL: Alert , in no apparent distress
EYE: pupils equal and reactive, EOMI, no nystagmus, no photophobia
NECK: Supple, no significant adenopathy, no midline tenderness.
ENT: obvious midface swelling. ttp of nasal bridge with approx 4 cm laceration to level of st. No septal hematoma. Swelling of upper lip with assoc small lac inner aspect lip, not gaping. Lower teeth stable. Upper teeth misaligned with pain
with palpation/attempted stability assessment.
CARDIAC: Regular rate and rhythm .
LUNGS: Clear breath sounds bilaterally, no acute respiratory distress, no wheezes/rales/rhonchi
ABDOMEN: Soft, without focal tenderness, no r/g, no cvat
NEUROLOGICAL: Alert and oriented, no focal neuro deficits
SKIN: Warm and dry, skin intact.
MUSCULOSKELETAL: Well perfused. There is sl bruising at R wrist/prox hand, non ttp L elbow area with ROM preserved.
PSYCH: Normal and appropriate interaction.
Course
Orders/Labs/Results
Orders:
Orders
01/15/25 12:[address] Facial Bones W/o Iv Contras Urgent
Reason For Exam: Fall, head strike, nasal swelling and pain
CT Head W/o Iv Contrast Urgent
Comment:
Reason For Exam: Fall, head strike, nasal swelling and pain
CR Wrist - Left Min 3 Views Urgent
Comment:
Reason For Exam: Fall, swelling, pain
CR Wrist - Right Min 3 Views Urgent
Comment:
Reason For Exam: Fall, swelling, pain
01/15/25 13:20
CR Elbow - Left Min 3 Views Urgent
Comment:
Reason For Exam: Fall, Pain, Swelling
01/15/25 13:23
Tetanus/Diphth/Acelpertussis [Adacel] 0.5 ml IM .ONCE ONE
01/15/25 14:09
Complete Blood Count/No Diff Urgent
Comprehensive Metabolic Panel Urgent
01/15/25 14:35
Lidocaine/Epinephrine/Tetracai [Let Topical Anesthetic Gel] 3 ml TOPICAL NOW STA
01/15/25 15:20
Acetaminophen [Tylenol] 1,000 mg .ROUTE .STK-MED ONE
01/15/25 15:21
* Blood Bank Products Urgent
Blood Bank Products: *Plt Single Donor Leuko
Quantity: 1
Transfuse Today: Yes
Reason: Thrombocytopenia
Acetaminophen [Tylenol] 1,000 mg PO NOW STA
01/15/25 15:22
IV Insert/Care/Rem.- Treatment PRN
01/15/25 15:31
Acetaminophen 1000MG/100Ml [Ofirmev] 1,000 mg in 100 ml .ROUTE .STK-MED
01/15/25 15:38
Acetaminophen 1000MG/100Ml [Ofirmev] 1,000 mg in 100 ml IV ONCE
Acetaminophen IV Indication:: No SC & No Enteral Access
01/15/25 15:43
Type+Screen Urgent
Abnormal Lab Results
01/15/25
14:09
WBC 12.0 H 10^3/uL
(4.8-10.8)
RBC 4.04 L 10^6/uL
(4.20-5.40)
Hct 35.2 L %
(37.0-47.0)
MCH 31.7 H pg
(27.0-31.0)
Plt Count 54 L D 10^3/uL
(130-400)
MPV 11.1 H fL
(7.4-10.4)
BUN 28 H mg/dl
(7-17)
Creatinine 1.1 H mg/dL
(0.6-1.0)
Glucose 126 H mg/dl
(70-99)
01/15/25 14:09
01/15/25 14:09
Vital Signs
Initial and Last Documented VS:
Initial Vital Signs
Temp Pulse Resp BP Pulse Ox
98.0 F 97 20 148/96 99
01/15/25 11:22 01/15/25 11:22 01/15/25 11:22 01/15/25 11:22 01/15/25 11:22
Last Documented Vital Signs
Temp Pulse Resp BP Pulse Ox
98.7 F 92 18 137/69 99
01/15/25 16:24 01/15/25 16:24 01/15/25 16:24 01/15/25 16:24 01/15/25 16:24
Procedures
Laceration Closure
Nose:
Status of Wound: clean
Description of Wound Edges: ragged
Preparation: cleaned with saline
Anesthesia: Topical-LET
Revision/Debridement: routine- no revision
Type of Closure: single layer closure
Skin Closure Material: 5-0 prolene
Number of sutures: 6
Lip:
Status of Wound: clean
Size of Wound in cm: 1
Description of Wound Edges: sharp
Preparation: cleaned with saline
Anesthesia: 1% Lidocaine
Revision/Debridement: routine- no revision
Type of Closure: single layer closure
Skin Closure Material: 5-0 vicryl
Number of sutures: 2
*Critical Care Note
Total Time (30-74mins, 75-104mins- exclusive of procedures): 46
Update Note
Update Note:
Patient presents to the Emergency Department with ____fall forward
Number and Complexity of Problems Addressed at the Encounter
� Chronic conditions affecting care:
� Acute Exacerbation and/or Progression of Chronic Illness:
� Differential Diagnosis includes: But not limited to [place] I fracture, [place] II fracture, intracranial bleed, nasal fracture, concussion, etc
Amount and/or Complexity of Data to be Reviewed and Analyzed
� I performed an independent evaluation of and my interpretation is:
EKG:
CT:Addendum: Upon further review, there is nondisplaced fracture of the anterior aspect of the alveolar process of the maxilla with some associated posterior angulation of the incisors, seen to best advantage on the sagittal
reformat.
Electronically signed by Fredi Ramos DO, 01/15/2025 2:22 PM
[employer] Dose Report: Up-to-date CT equipment and radiation dose reduction techniques were employed. CTDIvol: 45.2 mGy. DLP: 1330 mGy-cm.
The following accession numbers are related to this dose report {[id number]}:
[id number]
[employer] Dose Report: Up-to-date CT equipment and radiation dose reduction techniques were employed. CTDIvol: 45.2 mGy. DLP: 1330 mGy-cm.
The following accession numbers are related to this dose report {[id number]}:
[id number]
Addendum Dictated by: Fredi Ramos DO
Addendum Dictated Date & Time: 01/15/251420
Addendum Signed by: Fredi Ramos DO.
Addendum Signed Date & Time: 01/15/25 142
EXAMINATION:
1. CT of the head without contrast.
2. CT of the facial bones without contrast.
INDICATION: Fall..
COMPARISON: CT head 09/04/2024.
TECHNIQUE: Axial acquisition from the skull base through vertex. Coronal reformats provided. Automated dose reduction technique was utilized.
FINDINGS:
Noncontrast CT of the head shows very small subdural hematoma along anterior falx, extending laterally for short distance along the left frontal concavity (image #[id number]). No other hemorrhage is identified. No mass effect or midline shift. Posterior
fossa structures within normal limits. There is moderate generalized volume loss. Ventricles normal in size. There are bilateral white matter hypodensities which are nonspecific, but most likely related to chronic small vessel ischemic disease.5 no
acute loss of nation-white differentiation is identified. There is no skull fracture.
CT of the facial bones shows moderately comminuted nasal bone fracture. There is angulated fracture through the anterior nasal septum. Associated mild apex left deviation. No other fractures are identified. No abnormal focal osseous lesions. Mastoid
air cells are clear. This will temporal bone structures within normal limits. Opacification of the anterior nasal cavity probably related to hematoma. There are some mild periapical lucencies of multiple teeth compatible with dental disease.
IMPRESSION:
1. Small falcine/left frontal subdural hematoma as above.
2. Moderately comminuted nasal bone fracture.
Findings communicated to Dr. Africa Marks in the emergency department at 1407 p.m. 01/15/2025.
Xrays:Suspicious for minimally impacted nondisplaced radial head fracture as above. No acute osseous abnormality right wrist.
2. No acute fracture of the left wrist identified. Mild widening scapholunate interval on the left suggesting possible soft tissue injury of indeterminate acuity.
Laboratory Studies:platelets 54K
Other:
� Review of other/old records reveals:
� Clinical information was obtained by an independent historian:daughter and son in law
� Prescriptions/Medications Considered but not given:
� Further testing considered but not performed:
Risk of Complications and/or Morbidity or Mortality of Patient Management
� Social determinants of health affecting care:
� Discussion with other providers (PCP, Hospitalists, Consultants, etc):
� Escalation of care including admission/observation vs risk of discharge considered: 1:31 PM patient going to a CAT scan now. Discussed with her the plan regarding potential for facial fracture. She declines medications at
this time. Airway patent and stable.
3:29 PM Case discussed with Dr. Selby from [facility], aware of history, physical, CT findings and I also attached a photo of her dentition/intraoral exam. He states that she is not a candidate for immediate care, operation, or any other treatment at this
time. He suggest follow-up in the office in regards to her injuries. He suspects that she will lose her 2 front teeth. This was discussed with the patient and family. Given subdural hematoma, case discussed with neurosurgery, Dr. Evans, and
given platelet count 54K, recommendation is transfusion and trauma transfer to them. This was discussed with family and patient and she is agreeable to this as well. Case discussed with heme-onc Dr. Mcclain via [place] text giving her the update.
3:53 PM Case discussed with Dr. Adam at [facility] who accepts patient on transport. Aware of her injuries here, no further recommendations before transfer.
Wounds were repaired by me, family at bedside. 4:25 PM awaiting final transport arrangements, platelets are currently infusing, patient remains awake alert stable. Of note, possible radial head fx...we will apply long arm splint for transfer and
tx films.
ED Attending Note
-
Portions of this chart may have been created with voice recognition software.� Occasional wrong word or��sound alike� substitutions may have occurred due to the inherent limitations of voice recognition software.
Discharge Plan
Departure
Patient Disposition: Other
Date of Disposition: 01/15/25
Time of Disposition: 16:24
Discharge Problem:
Thrombocytopenia, Acute subdural hematoma, facial fracture, lacerations
Prescriptions:
No Action
lorazepam 1 MG tablet
1 mg PO QID@06,12,17,00
dorzolamide-timolol [Cosopt] 22.3-6.8 mg/mL Drops
1 drp BOTH EYES BID
brimonidine [Alphagan P] 0.1 % Drops
1 drp BOTH EYES BID
acetaminophen 160 mg/5 mL (5 mL) Solution
0 mg PO BIDPRN PRN (Reason: mild pain)
Nplate 125 mcg Recon Soln
0 mcg SC TH
Referrals:
Alexandr Campos MD [Family Provider, Internal Medicine]
Hospital Transfer
Other hospital: [facility]
I certify that the patient requires transfer: Yes
Discussed case with accepting physician: maria c
Reason for transfer: higher level of care and specialties available
Interventions
Interventions:
*Risk Screen - Suicide Last Done: 01/15/25 12:19
*General Assessment Last Done: 01/15/25 11:22
ED-Musculoskeletal Assessment Last Done: 01/15/25 12:24
ED- Neurological Assessment Last Done: 01/15/25 12:24
ED-Skin Assessment Last Done: 01/15/25 12:24
Discharge Date and Time
Print Language: ITALIAN
[2025-01-15] MEDS: ADACEL 0.5 ML IM (14:10)
[2025-01-15 14:12] VITALS: BP 147/67
[2025-01-15 14:31] LABS: Hematocrit 35.2 % (37.0-47.0); Hemoglobin 12.8 g/dL (12.0-16.0); Mean Corp Hgb Conc. 36.4 g/dL (33.0-37.0); Mean Corpuscular Hgb 31.7 pg (27.0-31.0); Mean Corpuscular Volume 87.1 fL (81.0-99.0); Red Blood Cell Count 4.04 10^6/uL (4.20-5.40)
[2025-01-15 14:43] LABS: ALT (SGPT) 18 U/L (0-35); AST (SGOT) 26 U/L (14-36); Albumin 4.2 g/dl (3.5-5.0); Alkaline Phosphatase 88 U/L (38-126); Blood Urea Nitrogen 28 mg/dl (7-17); Carbon Dioxide 24 mmol/L (22-30); Chloride 104 mmol/L (98-107); Estimated Creatinine Clearance 34 ml/min; Glucose 126 mg/dl (70-99); Potassium 4.3 mmol/L (3.5-5.1); Sodium 136 mmol/L (135-145); Total Bilirubin 0.7 mg/dl (0.2-1.3); Total Protein 6.7 g/dl (6.3-8.2); eGFR 49.86
[2025-01-15] MEDS: LET TOPICAL ANESTHETIC GEL 3 ML TOPICAL (14:46)
[2025-01-15 15:00] VITALS: BP 136/65
[2025-01-15 15:16] LABS: Mean Platelet Volume 11.1 fL (7.4-10.4); Platelet Count 54 10^3/uL (130-400)
[2025-01-15] MEDS: OFIRMEV 100 IV (15:39)
[2025-01-15 15:56] VITALS: BP 127/69
[2025-01-15 16:16] VITALS: BP 145/70
--- NOTE | 2025-01-15 16:19 | EDRN ---
Dr. Marks placed 6 sutures in patient's nose. 2 Sutures in upper lip.
[2025-01-15 16:24] VITALS: BP 137/69
--- NOTE | 2025-01-15 16:40 | EDRN ---
Per Dr. Marks, patient has suspected left radial head fracture. Long arm posterior splint applied at this time. Patient being given a dose of Ativan which she takes everyday. Estimated tack picker time for [facility] transfer is approx 1900. Patient and family
made aware. Purewick catheter in place at this time. 1 bag of PLTs have been completed. Patient still has scant amount of blood oozing from her nose and upper lip. Patient hemodynamically stable.
[2025-01-15] MEDS: ATIVAN 1 MG IV (16:42)
== END 2025-01-15 18:52 | disposition short-term general hospital (02) ==
LOC: EMR 11:19
PROVIDERS: EMERGENCY PHYSICIAN Emergency Medicine; FAMILY PHYSICIAN Internal Medicine
DX: S06.5XAA Traumatic subdural hemorrhage with loss of consciousness status unknown, initial encounter (principal); D69.6 Thrombocytopenia, unspecified; S02.2XXA Fracture of nasal bones, initial encounter for closed fracture; S52.124A Nondisplaced fracture of head of right radius, initial encounter for closed fracture; S01.511A Laceration without foreign body of lip, initial encounter; S01.21XA Laceration without foreign body of nose, initial encounter; W01.0XXA Fall on same level from slipping, tripping and stumbling without subsequent striking against object, initial encounter; Y93.01 Activity, walking, marching and hiking; Z23 Encounter for immunization
CPT/HCPCS: 12013; 29105; 96374; 96375; 90471; 99291; 70450; 70486; 73080; 73110; 80053; 85027; 86850; 86900; 86901; 90715; P9073

== ENCOUNTER → 2025-02-15 09:05 | Outpatient (REF) | payer MEDICARE, SELFPAY ==
[2025-02-15 09:20] LABS: Hematocrit 34.3 % (37.0-47.0); Hemoglobin 11.6 g/dL (12.0-16.0); Mean Corp Hgb Conc. 33.8 g/dL (33.0-37.0); Mean Corpuscular Volume 93.0 fL (81.0-99.0); Platelet Count 131 10^3/uL (130-400); Red Cell Dist. Width 13.7 % (11.5-14.5)
== END ==
LOC: OIDL 09:05
PROVIDERS: ATTENDING PHYSICIAN Internal Medicine Hematology & Oncology; FAMILY PHYSICIAN Internal Medicine
DX: D69.3 Immune thrombocytopenic purpura (principal); G62.9 Polyneuropathy, unspecified; Z83.49 Family history of other endocrine, nutritional and metabolic diseases; N39.0 Urinary tract infection, site not specified
CPT/HCPCS: 36415; 85025

== ENCOUNTER → 2025-02-22 08:56 | Outpatient (REF) | payer MEDICARE, SELFPAY ==
[2025-02-22 09:06] LABS: Hematocrit 34.7 % (37.0-47.0); Hemoglobin 11.6 g/dL (12.0-16.0); Mean Corp Hgb Conc. 33.4 g/dL (33.0-37.0); Mean Corpuscular Volume 92.8 fL (81.0-99.0); Platelet Count 212 10^3/uL (130-400); Red Cell Dist. Width 13.3 % (11.5-14.5)
== END ==
LOC: OIDL 08:56
PROVIDERS: ATTENDING PHYSICIAN Internal Medicine Hematology & Oncology; FAMILY PHYSICIAN Internal Medicine
DX: D69.3 Immune thrombocytopenic purpura (principal); G62.9 Polyneuropathy, unspecified; Z83.49 Family history of other endocrine, nutritional and metabolic diseases; N39.0 Urinary tract infection, site not specified; C61 Malignant neoplasm of prostate
CPT/HCPCS: 36415; 85025

== ENCOUNTER → 2025-03-01 08:53 | Outpatient (REF) | payer MEDICARE, SELFPAY ==
[2025-03-01 09:25] LABS: Hematocrit 36.4 % (37.0-47.0); Hemoglobin 12.3 g/dL (12.0-16.0); Mean Corp Hgb Conc. 33.8 g/dL (33.0-37.0); Mean Corpuscular Volume 91.7 fL (81.0-99.0); Platelet Count 86 10^3/uL (130-400); Red Cell Dist. Width 13.0 % (11.5-14.5)
== END ==
LOC: OIDL 08:53
PROVIDERS: ATTENDING PHYSICIAN Internal Medicine Hematology & Oncology; FAMILY PHYSICIAN Internal Medicine
DX: D69.3 Immune thrombocytopenic purpura (principal); G62.9 Polyneuropathy, unspecified; Z83.49 Family history of other endocrine, nutritional and metabolic diseases; N39.0 Urinary tract infection, site not specified
CPT/HCPCS: 36415; 85025

== ENCOUNTER → 2025-03-08 08:51 | Outpatient (REF) | payer MEDICARE, SELFPAY ==
[2025-03-08 09:19] LABS: Hematocrit 36.2 % (37.0-47.0); Hemoglobin 12.2 g/dL (12.0-16.0); Mean Corp Hgb Conc. 33.7 g/dL (33.0-37.0); Mean Corpuscular Volume 92.1 fL (81.0-99.0); Platelet Count 152 10^3/uL (130-400); Red Cell Dist. Width 13.0 % (11.5-14.5)
== END ==
LOC: OIDL 08:51
PROVIDERS: ATTENDING PHYSICIAN Internal Medicine Hematology & Oncology; FAMILY PHYSICIAN Internal Medicine
DX: D69.3 Immune thrombocytopenic purpura (principal); G62.9 Polyneuropathy, unspecified; Z83.49 Family history of other endocrine, nutritional and metabolic diseases; N39.0 Urinary tract infection, site not specified
CPT/HCPCS: 36415; 85025

== ENCOUNTER → 2025-03-15 09:08 | Outpatient (REF) | payer MEDICARE, SELFPAY ==
[2025-03-15 09:18] LABS: Hematocrit 37.6 % (37.0-47.0); Hemoglobin 12.8 g/dL (12.0-16.0); Mean Corp Hgb Conc. 34.0 g/dL (33.0-37.0); Mean Corpuscular Volume 91.7 fL (81.0-99.0); Platelet Count 283 10^3/uL (130-400); Red Cell Dist. Width 13.0 % (11.5-14.5)
== END ==
LOC: OIDL 09:08
PROVIDERS: ATTENDING PHYSICIAN Internal Medicine Hematology & Oncology; FAMILY PHYSICIAN Internal Medicine
DX: D69.3 Immune thrombocytopenic purpura (principal); G62.9 Polyneuropathy, unspecified; Z83.49 Family history of other endocrine, nutritional and metabolic diseases; N39.0 Urinary tract infection, site not specified
CPT/HCPCS: 36415; 85025

== ENCOUNTER → 2025-03-22 08:55 | Outpatient (REF) | payer MEDICARE, SELFPAY ==
[2025-03-22 09:12] LABS: Hematocrit 37.6 % (37.0-47.0); Hemoglobin 12.9 g/dL (12.0-16.0); Mean Corp Hgb Conc. 34.3 g/dL (33.0-37.0); Mean Corpuscular Volume 91.3 fL (81.0-99.0); Platelet Count 252 10^3/uL (130-400); Red Cell Dist. Width 13.0 % (11.5-14.5)
== END ==
LOC: OIDL 08:55
PROVIDERS: ATTENDING PHYSICIAN Internal Medicine Hematology & Oncology; FAMILY PHYSICIAN Internal Medicine
DX: D69.3 Immune thrombocytopenic purpura (principal); G62.9 Polyneuropathy, unspecified; Z83.49 Family history of other endocrine, nutritional and metabolic diseases; N39.0 Urinary tract infection, site not specified
CPT/HCPCS: 36415; 85025

== ENCOUNTER → 2025-03-29 08:55 | Outpatient (REF) | payer MEDICARE, SELFPAY ==
[2025-03-29 09:14] LABS: Hematocrit 37.2 % (37.0-47.0); Hemoglobin 13.0 g/dL (12.0-16.0); Mean Corp Hgb Conc. 34.9 g/dL (33.0-37.0); Mean Corpuscular Volume 90.3 fL (81.0-99.0); Platelet Count 169 10^3/uL (130-400); Red Cell Dist. Width 12.7 % (11.5-14.5)
== END ==
LOC: OIDL 08:55
PROVIDERS: ATTENDING PHYSICIAN Internal Medicine Hematology & Oncology; FAMILY PHYSICIAN Internal Medicine
DX: D69.3 Immune thrombocytopenic purpura (principal); G62.9 Polyneuropathy, unspecified; Z83.49 Family history of other endocrine, nutritional and metabolic diseases; N39.0 Urinary tract infection, site not specified
CPT/HCPCS: 36415; 85025

== ENCOUNTER → 2025-04-05 09:08 | Outpatient (REF) | payer MEDICARE, SELFPAY ==
[2025-04-05 09:27] LABS: Hematocrit 38.7 % (37.0-47.0); Hemoglobin 13.4 g/dL (12.0-16.0); Mean Corp Hgb Conc. 34.6 g/dL (33.0-37.0); Mean Corpuscular Volume 90.2 fL (81.0-99.0); Platelet Count 152 10^3/uL (130-400); Red Cell Dist. Width 12.7 % (11.5-14.5)
== END ==
LOC: OIDL 09:08
PROVIDERS: Registered Nurse; ATTENDING PHYSICIAN Internal Medicine Hematology & Oncology; FAMILY PHYSICIAN Internal Medicine
DX: D69.3 Immune thrombocytopenic purpura (principal); G62.9 Polyneuropathy, unspecified; Z83.49 Family history of other endocrine, nutritional and metabolic diseases
CPT/HCPCS: 36415; 85025; 86850; 86900; 86901

== ENCOUNTER → 2025-04-12 09:06 | Outpatient (REF) | payer MEDICARE, SELFPAY ==
[2025-04-12 09:51] LABS: Hematocrit 37.6 % (37.0-47.0); Hemoglobin 13.3 g/dL (12.0-16.0); Mean Corp Hgb Conc. 35.4 g/dL (33.0-37.0); Mean Corpuscular Volume 88.9 fL (81.0-99.0); Platelet Count 100 10^3/uL (130-400); Red Cell Dist. Width 12.6 % (11.5-14.5)
== END ==
LOC: OIDL 09:06
PROVIDERS: ATTENDING PHYSICIAN Internal Medicine Hematology & Oncology; FAMILY PHYSICIAN Internal Medicine
DX: D69.3 Immune thrombocytopenic purpura (principal); G62.9 Polyneuropathy, unspecified; Z83.49 Family history of other endocrine, nutritional and metabolic diseases
CPT/HCPCS: 36415; 85025

== ENCOUNTER 2025-04-13 21:25 | Observation (INO) | payer MEDICARE, SELFPAY ==
[2025-04-13] VITALS (8 sets, daily range): BP systolic 107–131; BP diastolic 55–69; BMI 18.7
--- NOTE | 2025-04-13 13:51 | ED.GENMED ---
History of Present Illness
General
Chief Complaint: Allergic Reaction
Time Seen by Provider: 04/13/25 13:50
History of Present Illness
History of Present Illness:
FOCUSED PAST MEDICAL HISTORY
- The patient has history of frequent UTIs, ITP
REVIEW OF OLD RECORDS
- The patient had a traumatic small subdural hematoma 3 months ago
Note:
CHIEF COMPLAINT(S)
Rash, itchy skin, muscle spasm in the shoulder, dysuria, and episodes of abdominal discomfort.
HISTORY OF PRESENT ILLNESS
The patient is an 84-year-old female who presented to the Emergency Room with complaints of a widespread rash and itching, which began approximately 45 minutes after taking a dose of Nitrofurantoin (Macrobid) for a suspected urinary tract infection
(UTI). The patient reports a history of frequent UTIs and states that Nitrofurantoin has been the only antibiotic she can tolerate. It was described that she cannot swallow pills and thus opened the capsule, mixing the contents with applesauce
before ingestion. The rash was accompanied by muscle spasms localized to the shoulder area and significant itching. Additionally, the patient reported a sudden onset of burning pain upon urination with minimal urinary output and a persistent feeling
of abdominal discomfort since arrival at the ER. The primary care physician, Dr. Campos, initially prescribed Nitrofurantoin. The patient was advised to come to the ER following a suspected allergic reaction to the medication.
PAST MEDICAL AND SURIGICAL HISTORY
The patient mentions a fall earlier in the summer, resulting in facial trauma, broken nose, and loss of teeth, which required surgical intervention. The patient also has a history of being catheterized during a hospital stay related to that incident.
MEDICATIONS
The patient takes Ativan (Lorazepam) 1 mg, four tablets every six hours regularly. The last dose taken was at 10:30 AM today.
REVIEW OF SYSTEMS
- Dermatological: Rash and itching developing approximately 45 minutes post Nitrofurantoin ingestion.
- Musculoskeletal: Muscle spasms in the shoulder.
- Genitourinary: Dysuria with minimal urine output. Abdominal discomfort reported upon admission.
- Gastrointestinal: Initial nausea and gagging after taking medication, currently resolved.
PHYSICAL EXAM
General: Alert, no acute distress.
Skin: Warm, dry, presence of diffuse rash notable upper extremities and upper chest wall.
Head: Normocephalic, atraumatic.
Neck: Supple, trachea midline.
Eye, Ears, Nose, Mouth and Throat: Oral mucosa moist.
Cardiovascular: Normal peripheral perfusion, no edema. Borderline tachycardic
Respiratory: Respirations are non-labored.
Gastrointestinal: Abdomen nondistended, mild lower abdominal tenderness worse in the left lower quadrant.
Back: Normal range of motion, normal alignment.
Musculoskeletal: Normal range of motion, normal strength except for reported shoulder spasm.
Neurological: Alert and oriented to person, place, time, and situation, no focal neurological deficit observed.
Psychiatric: Appears rather anxious
PLAN
1. Administer intravenous Benadryl (diphenhydramine) infusion, monitoring for any allergic reactions due to the patients history of thrombocytopenia and sensitivity to rapid Benadryl administration.
2. Consider placement of a urinary catheter to obtain a sterile urine sample for analysis, ensuring to remove the catheter immediately post-collection.
3. Order Intravenous medications including steroids to address the allergic reaction to Nitrofurantoin.
4. Monitor Ativan administration for signs of benzodiazepine dependence due to long-term use.
5. Address abdominal discomfort and potential urinary tract infection with appropriate interventions based on investigative findings.
DIFFERENTIAL DIAGNOSIS
The Differential Diagnosis includes, in no particular order and is not limited to:
1. Allergic reaction to Nitrofurantoin
2. Urinary tract infection
3. Muscle strain or spasm
4. Benzodiazepine dependence
5. Contact dermatitis
6. Medication-induced rash
7. Interstitial cystitis
8. Anxiety-induced somatic symptoms
9. Drug reaction with eosinophilia and systemic symptoms (DRESS syndrome)
10. Thrombocytopenia-related symptoms.
RADIOLOGY
- CT imaging personally reviewed and there are air appendicoliths noted
LABS
- White count 28.4, hemoglobin 13.6, creatinine 1.1 which is near baseline
UPDATE
- I further reviewed records. The patient was seen here in September with leukocytosis. At that time leukocytosis resolved after discontinuation of prednisone.
SUMMARY OF ENCOUNTER
The patient, an 84-year-old female, presented to the emergency department following the administration of Nitrofurantoin which is suspected to have caused an allergic reaction including a widespread rash 45 minutes post-ingestion. She also reported
dysuria and abdominal discomfort. Upon examination, abdominal tenderness was noted predominantly on the left side, although inflammatory changes around the appendix were visible on the CT scan. Management included intravenous medications to address
the allergic reactions and a urinary catheter was considered for sampling due to suspected urinary tract infection.
DISPOSITION
Admit.
ASSESSMENT
The patient exhibits signs consistent with an allergic reaction to Nitrofurantoin, accompanied by symptoms indicating a possible urinary tract infection and abdominal discomfort, necessitating further evaluation.
EMERGENCY TREATMENTS ADMINISTERED
Intravenous medications were administered to manage the allergic reaction symptoms, and a dose of Ativan (lorazepam) was ordered to manage anxiety.
PLAN
The patient should be admitted for closer monitoring of allergic reaction symptoms, evaluation of elevated white blood cell count, and potential urinary tract infection. Further management includes monitoring the response to intravenous medications,
possibly initiating ceftriaxone due to prior known allergy and the necessity to address a suspected bacterial infection. Continuous evaluation of abdominal symptoms is required to ascertain if surgical intervention is necessary for appendiceal
concerns.
INDEPENDENT REVIEW OF LABS AND INTERPRETATION OF TESTS
My independent review of the CBC indicates leukocytosis, with white blood cell count elevated to 28,000, necessitating investigation for potential infectious processes.
RADIOLOGY RESULTS
My independent interpretation of the CT scan of the abdomen shows inflammatory changes around the appendix, indicating potential appendicitis despite the predominance of left-sided abdominal discomfort.
FOLLOW-UP INSTRUCTIONS
The patient should follow up with her primary care physician post-discharge for monitoring and assessment of the response to treatment, ensuring resolution of symptoms.
MEDICATION RECONCILIATION
1. Ativan (lorazepam) was administered.
2. Consideration of ceftriaxone for urinary tract infection management pending patients historical tolerance and current clinical indications.
MEDICAL DECISION MAKING
- Complexity of Data Reviewed: Chronic conditions affecting care include a history of frequent UTIs, allergic reaction potentials, benzodiazepine dependence, and previous surgical interventions. Differential Diagnosis includes allergic reaction to
Nitrofurantoin, urinary tract infection, muscle strain, anxiety-induced somatic symptoms, and potential appendicitis.
- Data:
Category 1: My review of the CT scan and CBC supports further investigation given the leukocytosis and inflammatory changes.
Category 3: Discussion held regarding management and treatment options including surgical team consideration for potential appendicitis.
-Risk: Prescription drug management includes monitoring for potential dependency due to long-term lorazepam use. Monitoring of inflammatory changes to avoid possible complications from appendicitis is also critical. Considerations for admission
reflect the elevated risk associated with leukocytosis and abdominal symptoms.
I notified hospitalist Dr. Begum and Dr. Maki general surgeon�General Surgeon will see tomorrow. As I reevaluated the patient 8 PM, the patient's tenderness is more so on the left side as opposed to the right lower.
DIAGNOSIS
Leukocytosis with UTI
Past History
Past History
ED Past Medical History: Other (ITP, glaucoma, anxiety)
ED Past Surgical History: None
Social History
Tobacco: Non-smoker
Alcohol: None
Drug: None
Living: with family
Employment: Retired
Phy Exam
Physical Exam
Physical Exam:
See HPI
Course
Orders/Labs/Results
Orders:
Orders
04/13/25 14:02
Straight cath- Treatment ONCE
Diphenhydramine [Benadryl] 25 mg IV NOW STA
Famotidine [Pepcid] 20 mg IV NOW STA
MethylPREDNISolone PF [Solu-Medrol Pf] 60 mg IV NOW STA
04/13/25 14:38
Complete Blood Count/With Diff Urgent
Comprehensive Metabolic Panel Urgent
Lipase Urgent
04/13/25 14:49
Urinalysis Reflex To Culture Urgent
Date Specimen was Collected: 04/13/25
Time Specimen was Collected: 14:40
Urine Microscopic Reflex Cult Urgent
Urine Culture Urgent
KHALIF Source: U
Specimen Description:
Date Specimen was Collected: 04/13/25
Time Specimen was Collected: 14:40
04/13/25 14:55
CT Abd/pel Without Iv Or Oral Urgent
Comment:
Reason For Exam: diffuse abd pain; leukocytosis
04/13/25 15:59
CefTRIAXone [Rocephin] 1,000 mg IV NOW STA
04/13/25 19:48
Lorazepam [Ativan] 1 mg PO NOW STA
Abnormal Lab Results
04/13/25 04/13/25
14:38 14:49
WBC 28.4 H 10^3/uL
(4.8-10.8)
Plt Count 109 L 10^3/uL
(130-400)
Abs Immat Gran (auto) 0.2 H 10^3/uL
(0-0.05)
Absolute Neuts (auto) 26.3 H 10^3/uL
(1.4-6.5)
Absolute Lymphs (auto) 0.9 L 10^3/uL
(1.2-3.4)
Absolute Monos (auto) 1.1 H 10^3/uL
(0.1-0.6)
Immature Gran % 0.6 H %
(0-0.5)
Neutrophils % 92.5 H %
(42.2-75.2)
Lymphocytes % 3.1 L %
(20.5-51.1)
Sodium 131 L mmol/L
(135-145)
BUN 27 H mg/dl
(7-17)
Creatinine 1.1 H mg/dL
(0.6-1.0)
Glucose 139 H mg/dl
(70-99)
Urine Ketones 1+ A
(Negative)
Ur Occult Blood Reflex 4+ A
(Negative)
Leukocyte Esterase Rfl 3+ A
(Negative)
Urine RBC 16-20 A /HPF
(0-2)
Urine WBC (Reflex) >100 A /HPF
(0-5)
Urine Bacteria (Reflex) Moderate A
(Negative)
Urine Albumin (Reflex) 3+ A
(Neg - Trace)
04/13/25 14:38
04/13/25 14:38
Vital Signs
Initial and Last Documented VS:
Initial Vital Signs
Pulse Resp BP Pulse Ox
99 20 116/63 99
04/13/25 12:25 04/13/25 12:25 04/13/25 12:25 04/13/25 12:25
Last Documented Vital Signs
Temp Pulse Resp BP Pulse Ox
36.6 C 92 16 127/59 99
04/13/25 18:58 04/13/25 18:58 04/13/25 18:58 04/13/25 18:58 04/13/25 18:58
*Pulse Oximetry
SaO2: 99
Oxygen Mode of Delivery: Room air
Patient hypoxic: no
*Critical Care Note
Total Time (30-74mins, 75-104mins- exclusive of procedures): Not Applicable
ED Attending Note
-
Portions of this chart may have been created with voice recognition software.� Occasional wrong word or��sound alike� substitutions may have occurred due to the inherent limitations of voice recognition software.
Discharge Plan
Departure
Prescriptions:
No Action
lorazepam 1 MG tablet
1 mg PO QID@06,12,17,00
dorzolamide-timolol [Cosopt] 22.3-6.8 mg/mL Drops
1 drp BOTH EYES BID
brimonidine [Alphagan P] 0.1 % Drops
1 drp BOTH EYES BID
acetaminophen 160 mg/5 mL (5 mL) Solution
0 mg PO BIDPRN PRN (Reason: mild pain)
Nplate 125 mcg Recon Soln
0 mcg SC TH
Referrals:
Alexandr Campos MD [Family Provider, Internal Medicine]
Interventions
Interventions:
*Risk Screen - Suicide Last Done: 04/13/25 12:25
*General Assessment Last Done: 04/13/25 12:25
*Neglect/Abuse Screening Last Done: 04/13/25 12:25
ED- Pulmonary Assessment Last Done: 04/13/25 15:37
ED-Skin Assessment Last Done: 04/13/25 15:10
Discharge Date and Time
Print Language: ALBANIAN
[2025-04-13 14:46] LABS: Hematocrit 38.7 % (37.0-47.0); Hemoglobin 13.6 g/dL (12.0-16.0); Mean Corp Hgb Conc. 35.1 g/dL (33.0-37.0); Mean Corpuscular Volume 86.8 fL (81.0-99.0); Platelet Count 109 10^3/uL (130-400); Red Cell Dist. Width 13.0 % (11.5-14.5)
[2025-04-13] MEDS: PEPCID 20 MG IV (14:52)
[2025-04-13] MEDS: SOLU-MEDROL PF 60 MG IV (14:52)
[2025-04-13] MEDS: BENADRYL 25 MG IV (14:53)
[2025-04-13 15:26] LABS: ALT (SGPT) 27 U/L (0-35); AST (SGOT) 35 U/L (14-36); Albumin 4.8 g/dl (3.5-5.0); Alkaline Phosphatase 92 U/L (38-126); Blood Urea Nitrogen 27 mg/dl (7-17); Calcium 10.0 mg/dl (8.4-10.2); Carbon Dioxide 23 mmol/L (22-30); Chloride 98 mmol/L (98-107); Glucose 139 mg/dl (70-99); Lipase 134 U/L (23-300); Potassium 4.6 mmol/L (3.5-5.1); Sodium 131 mmol/L (135-145); Total Protein 7.2 g/dl (6.3-8.2); eGFR 49.86
[2025-04-13 15:30] LABS: Urine Character Cloudy (Clear)
[2025-04-13 15:53] LABS: Nucleated Red Blood Cells % 0 %
[2025-04-13 15:59] LABS: Urine Red Blood Cell 16-20 /HPF (0-2); Urine Squamous Cell 0-2 /LPF (Few); Urine White Cell >100 /HPF (0-5)
[2025-04-13] MEDS: ROCEPHIN 1000 MG IV (16:23)
[2025-04-13] MEDS: ATIVAN 1 MG PO (20:12)
--- NOTE | 2025-04-13 21:08 | HPS.HSE ---
Addendum entered and electronically signed by Gopi Stubbs MD 04/14/25 17:27:
see update note
Original Note:
Family Physician
-
Family Physician: Alexandr Campos
Chief Complaint
-
Allergic reaction
History of Present Illness
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 Patient reported that she started Macrobid for suspected urinary tract
infection and rash began for 5 minutes after taking a full dose of Macrobid. She has subtle allergies in the past.
She states that she had reduced nitrofurantoin in the past and has been the only antibiotic that she was able to tolerate. She reported that the rash was accompanied by muscle spasms localized to the shoulder area and with significant itching. She
also reports sudden onset of burning pain upon urination and minimal urinary output with abdominal discomfort since arrival in the emergency department. She was advised to come to the emergency department following the rash for suspected allergic
reaction to the medication. She reported rash in her upper and lower extremities which she describes as redness. She did not have any extremity rash at the time I saw her but that was hours after a steroid in the ED. She also denied having any
itching. She did have some petechial lesions in her upper chest.
In the emergency department patient was afebrile, blood pressure was 107/69 with a pulse of 82 satting 97% on room air.
She had a white count of 28.4, hemoglobin 13.6 platelet 109, electrolytes BUN and creatinine were in the normal range glucose was normal. UA was positive.
CT scan of the abdomen pelvis showed no evidence of urinary calculus or hydronephrosis.
There are appendicoliths present at the base of the appendix with mild adjacent wall thickening. The mid/distal appendix appears nondistended and lacks adjacent inflammatory changes. Findings aren't nonspecific although early appendicitis is
possible in the correct clinical setting.
Mild colonic stool burden.
Mildly distended urinary bladder.
Medical History
Past Medical History
Past Medical History: Reports Other
Additional Past Medical History:
09/04 -09/07/2024 for sepsis secondary to E. coli UTI. Cystitis was also noted on CT scan.
. ITP receives Nplate injection at outpatient infusion center. She received Nplate infusion on 09/14/2024 . She typically receives Nplate infusion on but was held during her recent infection
anxiety
fall
glaucoma
slightly elevated AST September admission
chronic dysphagia with pill swallowing only
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
Past Surgical History: Reports Other (Unknown)
Social History
Tobacco: Non-smoker
Alcohol: None
Drug: None
Personal: Single
Living: Alone (Lives in [id number] built onto far[address]'s home)
Employment: Retired
Family History
Family History: Not pertinent
Allergies / Home Medications
Allergies reflects when Allergies were last updated in [facility].
Home Medications with original date entered in [facility]
Allergy/Medication List:
Allergies
Allergy/AdvReac Type Severity Reaction Status Date / Time
acyclovir [From Zovirax] Allergy ANAPHYLAXIS-PT. Verified 09/21/24 10:04
SAID -
LOWERED
HER
PLATELETS
alprazolam [From Xanax] Allergy HYPER Verified 09/21/24 10:04
aspirin Allergy LOWERED Verified 09/21/24 10:04
HER
PLATELETS
caffeine Allergy Unknown Verified 09/21/24 10:04
ciprofloxacin [From Cipro] Allergy Hives/ pt Verified 09/21/24 10:04
states she
is now
able to
take cipro
epinephrine Allergy HEART RACES Verified 09/21/24 10:04
erythromycin base Allergy 'felt skin Verified 09/21/24 10:04
[Erythromycin Base] crawling'
escitalopram oxalate Allergy THROMBOCYTO Verified 09/21/24 10:04
[From Lexapro] PENIA
paroxetine HCl [From Paxil] Allergy THROMBOCYTO Verified 09/21/24 10:04
PENIA
Penicillins Allergy Rash - Verified 09/21/24 10:04
tolerated
ceftriaxone
in the past
Sulfa (Sulfonamide Allergy HIVES AND Verified 09/21/24 10:04
Antibiotics) RASH
sulfite Allergy HIVES AND Verified 09/21/24 10:04
RASH
Home Medications
lorazepam 1 mg tablet 1 mg PO QID@06,12,17,00 01/31/14
acetaminophen 160 mg/5 mL (5 mL) oral solution 0 mg PO BIDPRN PRN mild pain 09/21/24
brimonidine 0.1 % eye drops (Alphagan P) 1 drp BOTH EYES BID 09/21/24
dorzolamide 22.3 mg-timolol 6.8 mg/mL eye drops (Cosopt) 1 drp BOTH EYES BID 09/21/24
prednisone 10 mg tablet 10 mg PO DAILY@1200 09/21/24
romiplostim 125 mcg subcutaneous solution (Nplate) 0 mcg SC TH 09/21/24
Review of Systems
-
Constitutional: Reports No Symptoms
EENT: Reports No Symptoms
Respiratory: Reports No Symptoms
Cardiac: Reports No Symptoms
Abdomen/GI: Reports No Symptoms
: Reports Dysuria and Frequency
Musculoskeletal: Reports No Symptoms
Skin: Reports Rash
Neurological: Reports No Symptoms
Endocrine: Reports No Symptoms
Hematologic/Lymphatic: Reports No Symptoms
Psych: Reports No Symptoms
Physical Exam
Vital Signs
Vital Signs
Temp Pulse Resp BP Pulse Ox
97.8 F 82 16 107/69 97
04/13/25 18:58 04/13/25 20:37 04/13/25 20:37 04/13/25 20:37 04/13/25 20:37
Physical Exam
General: Comfortable and Cachectic; No Fever or Chills
HEENT: NormoCephalic, Anicteric, PERRLA, Hiller Conjunctivae, No Ptosis, Neck Nontender and Other (Bilateral red turbinates, rhinorrhea, point tenderness between eyes and top of nose)
Respiratory: Clear; No Wheezes, Rales or Rhonchi
Cardiac: S1/S2 and Regular Rhythm; No Murmur, Rub, Gallop or Peripheral Edema
Breast: Deferred by me
GI: Soft, Non Tender, Non Distended, Normal Bowel Sounds and No Hepatosplenomegaly
Genito-urinary: Deferred by me
Musculoskeletal: No Clubbing, No Cyanosis and No Edema
Skin: Warm and Dry; No Rash or Jaundice
Neuro: AO x 3, No Motor Deficits, Nonfocal/grossly intact, Cranial Nerves Intact and No Sensory Deficits; No Slurred Speech, Facial Droop, Tremors or Sedated
Laboratory Results
-
04/13/25 14:38
04/13/25 14:38
Laboratory Results
Total Bilirubin 0.7 mg/dl (0.2-1.3) 04/13/25 14:38
AST 35 U/L (14-36) 04/13/25 14:38
ALT 27 U/L (0-35) 04/13/25 14:38
Alkaline Phosphatase 92 U/L (38-126) 04/13/25 14:38
Lipase 134 U/L (23-300) 04/13/25 14:38
Data Reviewed
-
CT Scan: Report Reviewed by me
Lab Data: Labs Reviewed by me
Old Records: Reviewed
Impression/Plan
-
IMPRESSION:
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 In the emergency department she does have
positive UA consistent with a UTI and she has symptoms consistent with UTI. Rash consistent with possible drug reaction and she is status post IV steroids in the ED.
PLAN:
UTI
- Urine cultures sent
-Continue IV ceftriaxone for now
Rash -suspect secondary to nitrofurantoin
-Status post IV steroids
-Benadryl as needed and monitor for now
Leukocytosis -at prior history of leukocytosis thought to be secondary to steroids. The leukocytosis currently is in the absence of steroids.
-Treat UTI, monitor for now
Appendicolith-nonspecific though early appendicitis is possible
-N.p.o. after midnight
-Surgery consult
DVT prophylaxis�Lovenox subcu
CODE STATUS� full code
--- NOTE | 2025-04-13 22:30 | PTCARENOTE ---
Received patient from ED. Patient was transferred directly to the bed. Patient AAOx3. Patient assessed, VSS. Patient oriented to the unit. Call trammell in reach. Patient verbalized an understanding to ring for all transfers.
[2025-04-14] MEDS: ATIVAN 1 MG PO ×4 (00:05→16:59)
[2025-04-14 07:14] LABS: Hematocrit 33.7 % (37.0-47.0); Hemoglobin 11.9 g/dL (12.0-16.0); Mean Corp Hgb Conc. 35.3 g/dL (33.0-37.0); Mean Corpuscular Volume 87.5 fL (81.0-99.0); Platelet Count 143 10^3/uL (130-400); Red Cell Dist. Width 13.3 % (11.5-14.5)
[2025-04-14 07:22] LABS: Blood Urea Nitrogen 32 mg/dl (7-17); Calcium 9.3 mg/dl (8.4-10.2); Carbon Dioxide 24 mmol/L (22-30); Chloride 100 mmol/L (98-107); Estimated Creatinine Clearance 25 ml/min; Glucose 114 mg/dl (70-99); Magnesium 1.6 mg/dl (1.6-2.3); Potassium 4.5 mmol/L (3.5-5.1); Sodium 132 mmol/L (135-145); eGFR 37.33
[2025-04-14 07:39] VITALS: BP 89/48
[2025-04-14] MEDS: TIMOPTIC 0.5% OPHTHALMIC SOLUTION 1 DROP OPHTH (08:27)
[2025-04-14] MEDS: ALPHAGAN 0.2% EYE DROPS 1 DROP BOTH EYES (08:27)
[2025-04-14] MEDS: TRUSOPT 2% OPHTHALMIC SOLUTION 1 DROP BOTH EYES (08:27)
[2025-04-14 08:55] VITALS: BP 89/50
[2025-04-14 09:14] VITALS: BP 104/56
[2025-04-14] MEDS: FLAGYL 500 MG 100 IV (09:36)
[2025-04-14] MEDS: NSS 1000 IV ×2 (09:36→11:55)
[2025-04-14] MEDS: HYDROCORTISONE 2.5% OINTMENT 1 APPLIC TOPICAL (09:37)
[2025-04-14] MEDS: TYLENOL SUSPENSION 650 MG PO (09:38)
--- NOTE | 2025-04-14 09:51 | W.PN.HOSP.TC ---
Today's Communication/Plan
-
Continue IV ceftriaxone
Consult surgery
Monitor VS
Assessment / Plan
Assessment / Plan
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 In ED her urinalysis and symptoms were positive for UTI. The rash was on her left leg and
left arm. She developed muscle spasms at the same areas where the rash was. In ED she received IV steroids.
#Medication induced Allergic reaction
- Possible allergy to Nitrofurantoin
- status post IV steroids
- Benadryl prn
- Monitor symptoms-- left leg erythematous rash
#Urinary tract infection, meets criteria for SIRS
-hypotension, tachycardia, leukocytosis
-Dehydration- IV fluid
-Consult ID, input appreciated
-Urinalysis (+) for UTI
-Urine Culture- no growth
-Continue IV ceftriaxone 1000mg
-Transition to Cefdinir 300mg Q12 when ready for discharge
#Diffuse abdominal pain
At ED: Abdomen/ Pelvis CT
-There are appendicoliths present at the base of the appendix with mild adjacent wall thickening.
-The mid/distal appendix appears nondistended and lacks adjacent inflammatory changes.
-Findings aren't nonspecific although early appendicitis is possible in the correct clinical setting.
-There is a large exophytic cyst along the superior pole of the right kidney.
Denies abdominal pain
NPO
Consult surgery
#ITP
-Continue Nplate injection on
-Platelet count wnl
#Glaucoma
-Continue home meds
-Brimonidine
-Dorzolamide
#Anxiety
-Lorazepam 1mg PO, QD
#Chronic neuropathy
#Chronic dysphagia with pill swallowing
DVT prophylaxis: Lovenox
CODE STATUS: Full code
Anticipated Discharge: > 48 hours
Subjective/Interval History
-
Date of Service: April 14, 2025
She is lying in her bed reports having difficulty with m oving blanket because of her chronic neuropathic pain on her hands and feet. She chlenches her hands while urinating because of burning pain. She feels dry. She has rash on her left thigh,
admits that it happens when urine touches her skin. Denies itching, nausea, vomiting, spasms, and no abdominal pain.
Objective Data
-
Labs:
Laboratory Results
04/14/25
06:43
WBC 18.9 H
Hgb 11.9 L
Hct 33.7 L
Plt Count 143 D
Sodium 132 L
Potassium 4.5
Chloride 100
Carbon Dioxide 24
BUN 32 H
Creatinine 1.4 H
Glucose 114 H
Calcium 9.3
Vital Signs:
Vital Signs
Temp Pulse Resp BP Pulse Ox
98.1 F 108 16 104/56 98
04/14/25 07:39 04/14/25 07:39 04/14/25 07:39 04/14/25 09:14 04/14/25 07:39
Review of Systems
-
History Source: Patient
Constitutional: Reports No Symptoms
EENT: Reports Other (Dry mouth)
Respiratory: Reports No Symptoms
Cardiac: Reports No Symptoms
Abdomen/GI: Reports No Symptoms
Breast: Reports No Symptoms
Genitourinary: Reports Dysuria and UTI
Musculoskeletal: Reports Joint Pain and Muscle Pain
Skin: Reports Rash (left thigh)
Neuro: Reports No Symptoms
Endocrine: Reports No Symptoms
Psych: Reports Anxious (about possible surgery)
Physical Exam
-
General: Well Developed and Well Nourished
HEENT: Normocephalic and Atraumatic
Respiratory: Clear to Auscultation
Cardiac: Regular Rhythm and S1/S2
Breast: Deferred by me
GI: Soft, Nontender, Nondistended, Normal Bowel Sounds and Flat
Musculoskeletal: No Clubbing, No Cyanosis and No Edema
Skin: Warm and Dry
Neuro: AO x 3
Psych: Calm
--- NOTE | 2025-04-14 11:30 | W.PN.UPDATE ---
Update Note
Progress Note Update
Presented with drug induced rash after taking Macrobid that erupted within 30 minutes. Started on Macrobid by PCP for UTI. Has significant medication allergies most related to rash and anaphylaxis. Continues to have dysuria. Started on Rocephin
without rash.
Drug-induced rash
Discontinue Macrobid add to medication allergy
Improved
S/p Benadryl steroids
UTI
Follow-up urine culture
-Previous urine culture E. coli sensitive to Rocephin
Continue Rocephin
Transition to cefdinir 300 mg twice a day when ready for discharge
Appendicolith
Incidental finding on CT abdomen pelvis
Without evidence of right lower quadrant abdominal pain
Surgery consulted
As CT did not demonstrate appendicitis and did not present with right lower quadrant pain or physical exam findings consistent with appendicitis likely no operative management and can start a diet once seen/cleared by surgery. If surgery recommends
appendectomy then would continue n.p.o. If surgery does not recommend operative management then likely able to discharge home
[2025-04-14 11:57] VITALS: BP 92/60
--- NOTE | 2025-04-14 13:07 | CON.ID ---
Addendum entered and electronically signed by Rafai Young MD 04/14/25 13:40:
note there is a liquid suspension form of cefdinir that patient requests
Original Note:
Consultation
-
Date/Time Consultation Requested: 04/14/25 9:10
Date/Time Consultation Performed: 04/14/25 13:07
Requesting Provider: Dr Stubbs
Performing Provider: Dr Young
Reason for Consultation: drug rash
Chief Complaint / Past History
Chief Complaint
Allergic reaction
History of Present Illness
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 Patient reported that she started Macrobid for suspected urinary tract infection
and rash, shoulder spasms began for 5 minutes after taking a full dose of Macrobid. She reports allergies/intolerances to 12 different drugs.
In the emergency department patient was afebrile, blood pressure was 107/69 with a pulse of 82 satting 97% on room air. She had a white count of 28.4, hemoglobin 13.6 platelet 109, Cr initially 1.1 her baseline then increased to 1.4 today. UA >100
wbc/hpf. CT a/p without contrast: no renal stone 'There are appendicoliths present at the base of the appendix with mild adjacent wall thickening. The mid/distal appendix appears nondistended and lacks adjacent inflammatory changes. Findings aren't
nonspecific although early appendicitis is possible in the correct clinical setting.' . ID is consulted for assistance with management.
Past History
Additional Past Medical History:
09/04 -09/07/2024 for sepsis secondary to E. coli UTI. Cystitis was also noted on CT scan.
. ITP receives Nplate injection at outpatient infusion center. She received Nplate infusion on 09/14/2024 . She typically receives Nplate infusion on but was held during her recent infection
anxiety
fall
glaucoma
slightly elevated AST September admission
chronic dysphagia with pill swallowing only
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
Past Surgical History: None
Allergy History:
acyclovir (From Zovirax) Allergy (Verified 01/15/25 11:22)
ANAPHYLAXIS-PT. SAID - LOWERED HER PLATELETS
alprazolam (From Xanax) Allergy (Verified 01/15/25 11:22)
HYPER
aspirin Allergy (Verified 01/15/25 11:22)
LOWERED HER PLATELETS
caffeine Allergy (Verified 01/15/25 11:22)
Unknown
ciprofloxacin (From Cipro) Allergy (Verified 01/15/25 11:22)
Hives/ pt states she is now able to take cipro
epinephrine Allergy (Verified 01/15/25 11:22)
HEART RACES
erythromycin base (Erythromycin Base) Allergy (Verified 01/15/25 11:22)
'felt skin crawling'
escitalopram oxalate (From Lexapro) Allergy (Verified 01/15/25 11:22)
THROMBOCYTOPENIA
paroxetine HCl (From Paxil) Allergy (Verified 01/15/25 11:22)
THROMBOCYTOPENIA
Penicillins Allergy (Verified 01/15/25 11:22)
Rash - tolerated ceftriaxone in the past
Sulfa (Sulfonamide Antibiotics) Allergy (Verified 01/15/25 11:22)
HIVES AND RASH
sulfite Allergy (Verified 01/15/25 11:22)
HIVES AND RASH
Medications Reviewed: Yes
Social History
Tobacco: Non-Smoker
Alcohol: None
Drug: None
Family History
Family History: Not Pertinent
Review of Systems
Review of Systems
ROS was completed and is negative except as listed above
Vital Signs
Temp Pulse Resp BP Pulse Ox
98.1 F 101 16 92/60 98
04/14/25 07:39 04/14/25 11:57 04/14/25 07:39 04/14/25 11:57 04/14/25 07:39
Physical Exam
Physical Exam
Constitutional: No Acute Distress
Cardiovascular: Regular Rate and S1/S2; Negative Murmur or Rub
Pulmonary: Clear and Symmetric; Negative Wheezes, Rales or Rhonchi
Gastrointestinal: Soft, Non Tender, Non Distended and Normal Bowel Sounds
Skin: Warm and Dry; Negative Rash or Jaundice
Lab / Diagnostic Study Results
04/14/25 06:43
04/14/25 06:43
Abs Immat Gran (auto) 0.2 10^3/uL (0-0.05) H 04/13/25 14:38
Absolute Neuts (auto) 26.3 10^3/uL (1.4-6.5) H 04/13/25 14:38
Absolute Lymphs (auto) 0.9 10^3/uL (1.2-3.4) L 04/13/25 14:38
Absolute Monos (auto) 1.1 10^3/uL (0.1-0.6) H 04/13/25 14:38
Absolute Basos (auto) 0.0 10^3/uL (0-0.2) 04/13/25 14:38
Immature Gran % 0.6 % (0-0.5) H 04/13/25 14:38
Neutrophils % 92.5 % (42.2-75.2) H 04/13/25 14:38
Lymphocytes % 3.1 % (20.5-51.1) L 04/13/25 14:38
Monocytes % 3.7 % (1.7-9.3) 04/13/25 14:38
Eosinophils % 0.0 % (0-6) 04/13/25 14:38
Basophils % 0.1 % (0-2) 04/13/25 14:38
Ur Squamous Epith Cells 0-2 /LPF (Few) 04/13/25 14:49
Microbiology Results
Micro:
04/13/25 14:49 Urine Culture - Final
Urine NO GROWTH
Assessment / Plan
UTI
Reported allergies: penicillin (rash, tolerates ceftriaxone), ciprofloxacin (hives), erythromycin (skin crawling), sulfa (hives and rash)
- no visible rash at this time
- UA with pyuria, urine culture finalized negative
- possible allergy to nitrofurantoin, added to allergy list
- agree with ceftriaxone on dc can transition to cefdinir for 5 further days
- ruled out appendicitis, does not have any symptoms of abdominal pain; stopped metronidazole
--- NOTE | 2025-04-14 14:42 | CM ---
Initial assessment completed with pts daughter via phone.
Pt is an 84yr old female admitted with UTI.
At baseline, pt lives in an inlaws suite off the side of her sons home. there are 2 entrances; 3ste or a ramp.
Prior, pt is indep with mobility and ADLs. Pt has a handicap accessible bathroom with lots of rails in the shower and around the toilet. Per daughter, she often forgets to use the RW within the home, but is encouraged to use it when out at
appointments or in the community. Additional equipment includes a transport w/c, and cane.
Per daughter, pt does do some of her own meal prep. and does her own med management.
VN; [facility] and [facility]; [facility]
Daughter notes that she is very anxious and she has low motivation.
PCP; Alexandr Campos
Pharm; [facility] [phone]
PLAN; Likely home with VN
--- NOTE | 2025-04-14 15:10 | CON.GS ---
Addendum entered and electronically signed by Baldomero Maki MD 04/14/25 15:44:
Patient seen and examined with surgical [employer]. Agree with documented consultation note with additions noted here.
Brief HPI: 84-year-old female who presented to the emergency department for evaluation of dysuria and rash after recent treatment started for UTI as an outpatient with Macrobid. Patient denies any abdominal pain and states that the only pain she
was having was with urination which was not present in the abdomen. CT imaging was obtained in the emergency department which identified a fecalith however no appendiceal distention, questionable wall thickening. No free fluid.
This afternoon patient states that she is continue to have no abdominal pain. Appetite well and requesting to eat. Moving her bowels at a regular interval for her which is constipation. Last bowel movement about 2 days ago.
Past medical history notable for anxiety, ITP, recurrent UTIs, IBS-C; no past abdominal surgical history
NAD AAO x 3
ABD: Soft, nondistended, no tenderness elicited on palpation even on deep palpation in the right lower quadrant, no rebound rigidity or guarding
Assessment/plan: 84-year-old female with appendicolith but no clinical signs suggestive of appendicitis.
Recommend expectant management unless clinical course changes to be suggestive of appendicitis.
Original Note:
Consultation
-
Date/Time Consultation Performed: 04/14/25 1330
Medical History
-
Chief Complaint: dysuria
History of Present Illness:
Ms Otto is an 84 yo female with a h/o recent fall in December with SDH with injury to teeth (on pureed diet at home), ITP on Nplate (Doughterty), ELENA, and IBS who was recently treated for a UTI as an outpatient with Macrobid and developed a rash. She
noted dysuria and urinary frequency and voiding only small volumes at a time and presented for evaluation. She denies abdominal pain. She denies nausea, vomiting or anorexia. She has some constipation at baseline, but denies recent changes and has
had 3 bm's this week. No tenderness on abdominal exam.
Past Medical History
Past Medical History: Psychiatric (ELENA on qid ativan) and Other (ITP on Nplate, SDH 01/24 after fall, UTI's, IBS)
Social History
Tobacco: Non-Smoker
Alcohol: None
Living: With Family (in mother in law suite)
Family History
Family History: Reviewed & Not Pertinent
Allergies / Home Medications
Allergy/AdvReac Type Severity Reaction Status Date / Time
nitrofurantoin Allergy Intermediate Rash Verified 04/14/25 13:31
acyclovir (From Zovirax) Allergy ANAPHYLAXIS-PT. Verified 01/15/25 11:22
SAID -
LOWERED
HER
PLATELETS
alprazolam (From Xanax) Allergy HYPER Verified 01/15/25 11:22
aspirin Allergy LOWERED Verified 01/15/25 11:22
HER
PLATELETS
caffeine Allergy Unknown Verified 01/15/25 11:22
ciprofloxacin (From Cipro) Allergy Hives/ pt Verified 01/15/25 11:22
states she
is now
able to
take cipro
epinephrine Allergy HEART RACES Verified 01/15/25 11:22
erythromycin base Allergy 'felt skin Verified 01/15/25 11:22
(Erythromycin Base) crawling'
escitalopram oxalate (From Allergy THROMBOCYTO Verified 01/15/25 11:22
Lexapro) PENIA
paroxetine HCl (From Paxil) Allergy THROMBOCYTO Verified 01/15/25 11:22
PENIA
Penicillins Allergy Rash - Verified 01/15/25 11:22
tolerated
ceftriaxone
in the past
Sulfa (Sulfonamide Allergy HIVES AND Verified 01/15/25 11:22
Antibiotics) RASH
sulfite Allergy HIVES AND Verified 01/15/25 11:22
RASH
�Medication �Instructions �Recorded �Confirmed �Type
lorazepam 1 mg tablet 1 mg PO QID@06,12,17,00 Mental 01/31/14 09/21/24 History
Health/Anxiety
acetaminophen 160 mg/5 mL (5 mL) 0 mg PO BIDPRN PRN mild pain 09/21/24 09/21/24 History
oral solution
brimonidine 0.1 % eye drops 1 drp BOTH EYES BID Eye Condition 09/21/24 09/21/24 History
(Alphagan P)
dorzolamide 22.3 mg-timolol 6.8 1 drp BOTH EYES BID Eye Condition 09/21/24 09/21/24 History
mg/mL eye drops (Cosopt)
romiplostim 125 mcg subcutaneous 0 mcg SC TH ITP 09/21/24 09/21/24 History
solution (Nplate)
Held on 09/22/24.
Instructions: Follow up with
[employer] to determine
when appropriate to resume
Review of Systems
-
History Source: Patient
All other systems: Negative unless noted
A 10 point review of systems was completed, and was negative except as per HPI.
Physical Exam
Vital Signs
Temp Pulse Resp BP Pulse Ox
98.1 F 101 16 92/60 98
04/14/25 07:39 04/14/25 11:57 04/14/25 07:39 04/14/25 11:57 04/14/25 07:39
04/13/25 04/14/25 04/15/25
06:59 06:59 06:59
Actual Weight 52.571 kg
Body Mass Index (BMI) 18.7
Lab Results
04/14/25 06:43
04/14/25 06:43
WBC 18.9 10^3/uL (4.8-10.8) H 04/14/25 06:43
Hgb 11.9 g/dL (12.0-16.0) L 04/14/25 06:43
Hct 33.7 % (37.0-47.0) L 04/14/25 06:43
Plt Count 143 10^3/uL (130-400) D 04/14/25 06:43
Abs Immat Gran (auto) 0.2 10^3/uL (0-0.05) H 04/13/25 14:38
Neutrophils % 92.5 % (42.2-75.2) H 04/13/25 14:38
Physical Exam
General: Well Developed and Well Nourished
HEENT: Other (Missing upper front teeth)
Respiratory: Non Labored Respirations
GI: Soft, Non Tender and Non Distended
Neuro: Awake, Alert and AO x 3
Psych: Calm
Data Reviewed
-
CT Scan: Image Personally Visualized and interpreted, Report Reviewed by me, Discussed with Physician and Discussed with Patient
Labs: Labs Reviewed by me, Discussed with Physician and Discussed with Patient
Assessment / Plan
-
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 She noted dysuria
and urinary frequency and voiding only small volumes at a time and presented for evaluation. Incidental findings of appendicolith x2 on CT imaging without surrounding inflammation. No abdominal tenderness. No anorexia. Leukocytosis present but
improving with treatment for UTI.
Plan:
Ok to resume diet from home (pureed d/t dentition)
No plans for surgery for appendectomy
Surgery to follow peripherally, please call if questions/concerns
[2025-04-14 15:27] VITALS: BP 101/51
--- NOTE | 2025-04-14 16:27 | W.DCSUMMARY ---
Documented by User: Owen Melendez MD, Resident 04/14/25 16:46
Discharge Summary
Discharge Data
Date of Admission: 04/13/25
Date of Discharge: 04/14/25
-
Pending Results: No
Hospital Course
Discharging Physician : Dr. Owen Melendez, Dr. Gopi Stubbs
Disposition : Home
Primary care physician : Dr. Alexandr Campos
Principal Discharge diagnosis : UTI, Allergic reaction to Macrobid
Chronic Discharge diagnosis :
ITP
Anxiety
Fall
Glaucoma
Slightly elevated AST September admission
Chronic dysphagia with pill swallowing only
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
Hospital Course :
An 84 year old female with pmh significant for ITP on Nplate, presented to ED for suspected drug rash with widespread rash and itching. Patient reported that she started Macrobid for suspected urinary tract infection and rash, shoulder spasms began
for 5 minutes after taking a full dose of Macrobid. She reports allergies/intolerances to 12 different drugs.
In the ED patient was afebrile, blood pressure was 107/69 with a pulse of 82 satting 97% on room air. She had a white count of 28.4, hemoglobin 13.6 platelet 109, Cr initially 1.1 her baseline then increased to 1.4 today. UA >100 wbc/hpf.
Overnight she received IV ceftriaxone. Her allergic symptoms improved.
Continue taking Cefdinir 300mg BID PO for 5 days
Follow up with PCP within a week
See urogynecologist for chronic UTI symptoms
Important imaging findings :
Abdomen/pelvis CT scan
There are appendicoliths present at the base of the appendix with mild adjacent wall thickening.
The mid/distal appendix appears nondistended and lacks adjacent inflammatory changes.
Findings aren't nonspecific although early appendicitis is possible in the correct clinical setting.
Procedure findings : None
Discharge Plan
-
Patient Disposition: Home (Routine Discharge)
Discharge Diagnosis/Procedures: UTI
ITP
anxiety
fall
glaucoma
slightly elevated AST September admission
chronic dysphagia with pill swallowing only
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
Condition: Fair
Diet: No restrictions
Activity: No restrictions
Driving Restrictions: As prior to admission
Bathing Restrictions: None
Referrals:
Alexandr Campos MD [Family Provider, Internal Medicine]
Additional Discharge Medication Instructions: Follow up with your PCP within a week
Take Cefdinir antibiotic for 5 days
Prescriptions:
New
cefdinir 125 mg/5 mL suspension for reconstitution
300 mg PO BID 5 Days Qty: 120 0RF
Continued
lorazepam 1 MG tablet
1 mg PO QID@06,12,17,00
dorzolamide-timolol [Cosopt] 22.3-6.8 mg/mL Drops
1 drp BOTH EYES BID
brimonidine [Alphagan P] 0.1 % Drops
1 drp BOTH EYES BID
acetaminophen 160 mg/5 mL (5 mL) Solution
0 mg PO BIDPRN PRN (Reason: mild pain)
Nplate 125 mcg Recon Soln
0 mcg SC TH
Discharge Orders:
Discharge Patient (As Directed); Ordered 04/14/25
Ordered By: Owen Melendez
Discharge Date and Time
Print Language: ANDORRAN

Documented by User: Gopi Stubbs MD 04/14/25 17:26
Discharge Summary
Discharge Data
Date of Admission: 04/13/25
Date of Discharge: 04/14/25
Discharge Plan
-
Patient Disposition: Home (Routine Discharge)
Discharge Diagnosis/Procedures: UTI
ITP
anxiety
fall
glaucoma
slightly elevated AST September admission
chronic dysphagia with pill swallowing only
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
Condition: Fair
Diet: No restrictions
Activity: No restrictions
Driving Restrictions: As prior to admission
Bathing Restrictions: None
Referrals:
Alexandr Campos MD [Family Provider, Internal Medicine]
Additional Discharge Medication Instructions: Follow up with your PCP within a week
Take Cefdinir antibiotic for 5 days
Prescriptions:
New
cefdinir 125 mg/5 mL suspension for reconstitution
300 mg PO BID 5 Days Qty: 120 0RF
Continued
lorazepam 1 MG tablet
1 mg PO QID@06,12,17,00
dorzolamide-timolol [Cosopt] 22.3-6.8 mg/mL Drops
1 drp BOTH EYES BID
brimonidine [Alphagan P] 0.1 % Drops
1 drp BOTH EYES BID
acetaminophen 160 mg/5 mL (5 mL) Solution
0 mg PO BIDPRN PRN (Reason: mild pain)
Nplate 125 mcg Recon Soln
0 mcg SC TH
Discharge Orders:
Discharge Patient (As Directed); Ordered 04/14/25
Ordered By: Owen Melendez
Discharge Date and Time
Print Language: ANDORRAN
[2025-04-14] MEDS: ROCEPHIN 1000 MG IV (16:36)
[2025-04-14] MEDS: STERILE WATER FOR INJECTION 10 ML IV (16:37)
[2025-04-14 17:27] VITALS: BP 101/51
== END 2025-04-14 18:17 | disposition home or self-care (01) ==
LOC: 2 NORTH 21:25
PROVIDERS: ADMITTING PHYSICIAN Internal Medicine; ATTENDING PHYSICIAN Hospitalist; CONSULT PHYSICIAN Student in an Organized Health Care Education/Training Program; CONSULT PHYSICIAN Surgery; EMERGENCY PHYSICIAN Emergency Medicine; FAMILY PHYSICIAN Internal Medicine
DX: N39.0 Urinary tract infection, site not specified (principal); L27.0 Generalized skin eruption due to drugs and medicaments taken internally; R21 Rash and other nonspecific skin eruption; D72.829 Elevated white blood cell count, unspecified; K38.1 Appendicular concretions; D69.3 Immune thrombocytopenic purpura; Z79.899 Other long term (current) drug therapy; H40.9 Unspecified glaucoma; R13.10 Dysphagia, unspecified; G62.9 Polyneuropathy, unspecified
CPT/HCPCS: 51701; 74176; 80048; 80053; 81003; 81015; 83690; 83735; 85025; 85027; 87086; 96374; 96375; 99285; G0378

== ENCOUNTER 2025-04-17 03:12 | Observation (INO) | payer MEDICARE, SELFPAY ==
[2025-04-16 17:08] VITALS: BP 126/70
[2025-04-16 17:25] LABS: Hematocrit 33.8 % (37.0-47.0); Hemoglobin 11.5 g/dL (12.0-16.0); Mean Corp Hgb Conc. 34.0 g/dL (33.0-37.0); Mean Corpuscular Volume 88.7 fL (81.0-99.0); Nucleated Red Blood Cells % 0 %; Platelet Count 219 10^3/uL (130-400); Red Cell Dist. Width 13.2 % (11.5-14.5)
[2025-04-16 17:45] LABS: ALT (SGPT) 20 U/L (0-35); AST (SGOT) 27 U/L (14-36); Albumin 3.6 g/dl (3.5-5.0); Alkaline Phosphatase 76 U/L (38-126); Blood Urea Nitrogen 30 mg/dl (7-17); Calcium 8.5 mg/dl (8.4-10.2); Carbon Dioxide 24 mmol/L (22-30); Chloride 102 mmol/L (98-107); Glucose 123 mg/dl (70-99); Potassium 4.2 mmol/L (3.5-5.1); Sodium 132 mmol/L (135-145); Total Protein 6.2 g/dl (6.3-8.2); eGFR 55.90
[2025-04-16 21:52] VITALS: BP 124/78
[2025-04-16 22:32] VITALS: BMI 18.4
[2025-04-16 22:41] VITALS: BP 132/62
[2025-04-16 22:45] VITALS: BP 132/62
[2025-04-16 23:00] VITALS: BP 119/62
[2025-04-16] MEDS: ATIVAN 1 MG PO (23:36)
[2025-04-16] MEDS: NSS 500 IV (23:36)
[2025-04-17] VITALS (10 sets, daily range): BP systolic 108–150; BP diastolic 63–81; PULSE 83–94; O2SAT 98; BMI 18.7
[2025-04-17 00:19] LABS: Urine Character Clear (Clear)
--- NOTE | 2025-04-17 00:36 | ED.GENMED ---
History of Present Illness
General
Chief Complaint: Weakness
Source: patient and family
Exam Limitations: none
Time Seen by Provider: 04/16/25 22:25
History of Present Illness
History of Present Illness:
Patient discharged 2 days after general weakness and possible UTI. CT at that time showed a questionable inflammation of the tip of the appendix. Patient has digressed at home with increased weakness has basically been in bed since her discharge.
Has had incontinence issues. No fever. Currently on antibiotics
Past History
Past History
ED Past Medical History: Other (ITP, glaucoma, anxiety)
ED Past Surgical History: None
Social History
Tobacco: Non-smoker
Alcohol: None
Drug: None
Living: with family
Employment: Retired
Review of Systems
Review of Systems
All Other Systems: Not applicable
Constitutional: Reports fatigue; Denies fever
Respiratory: Reports no symptoms
Cardiac: Reports no symptoms
Phy Exam
Physical Exam
Physical Exam:
GENERAL: Alert and oriented in no apparent distress. Elderly and frail
EYE: Orbits normal.
NECK: Supple, no significant adenopathy.
ENT: Pharynx without erythema
CARDIAC: Regular rate and rhythm without any obvious murmurs.
LUNGS: Clear breath sounds,normal
ABDOMEN: Soft, without focal tenderness or distention
NEUROLOGICAL: Alert and oriented , grossly non-focal. General weakness diffusely. No focal weakness.
SKIN: Warm and dry, no rash or lesion, no discoloration, skin intact.
MUSCULOSKELETAL: No edema,no deformity.Good color
PSYCH: Normal and appropriate interaction.
Course
Orders/Labs/Results
Orders:
Orders
04/16/25 17:12
Complete Blood Count/With Diff Urgent
Comprehensive Metabolic Panel Urgent
04/16/25 22:49
Straight cath- Treatment ONCE
Urinalysis Reflex To Culture Urgent
Date Specimen was Collected: 04/16/25
Time Specimen was Collected: 23:30
Lorazepam [Ativan] 1 mg PO NOW STA
04/16/25 22:50
0.9% Sodium Chloride 500 ml [Nss] 500 ml IV BOLUS
04/17/25 00:11
Urine Microscopic Reflex Cult Urgent
04/17/25 02:12
COVID-19 Antigen Stat
Source: Nasal Swab
Influenza A+B Rapid Molecular Stat
KHALIF Source: Nasal Swab
Specimen Description:
Abnormal Lab Results
04/16/25 04/17/25
17:12 00:11
RBC 3.81 L 10^6/uL
(4.20-5.40)
Hgb 11.5 L g/dL
(12.0-16.0)
Hct 33.8 L %
(37.0-47.0)
Abs Immat Gran (auto) 0.1 H 10^3/uL
(0-0.05)
Absolute Neuts (auto) 8.6 H 10^3/uL
(1.4-6.5)
Absolute Lymphs (auto) 1.1 L 10^3/uL
(1.2-3.4)
Neutrophils % 80.7 H %
(42.2-75.2)
Lymphocytes % 10.2 L %
(20.5-51.1)
Sodium 132 L mmol/L
(135-145)
BUN 30 H mg/dl
(7-17)
Glucose 123 H mg/dl
(70-99)
Total Protein 6.2 L g/dl
(6.3-8.2)
Ur Occult Blood Reflex 2+ A
(Negative)
Urine RBC 3-6 A /HPF
(0-2)
Urine Bacteria (Reflex) Few A
(Negative)
Urine Albumin (Reflex) 2+ A
(Neg - Trace)
04/16/25 17:12
04/16/25 17:12
Vital Signs
Initial and Last Documented VS:
Initial Vital Signs
Temp Pulse Resp BP Pulse Ox
98.7 F 96 18 126/70 96
04/16/25 17:08 04/16/25 17:08 04/16/25 17:08 04/16/25 17:08 04/16/25 17:08
Last Documented Vital Signs
Temp Pulse Resp BP Pulse Ox
97.9 F 77 11 129/67 99
04/16/25 22:45 04/17/25 01:00 04/17/25 01:00 04/17/25 01:00 04/17/25 01:00
MDM/Problems Addressed
Differential Diagnosis Includes:
Patient presents with ongoing and progressive weakness. ADL issues. Doubt spinal issue. Has no back pain. No fever. Doubt this is a primary urinary issue. Actually unclear of the primary explanation for her symptoms but given the progression
of weakness and ADL issues warrants inpatient management
*Pulse Oximetry
SaO2: 98
Oxygen Mode of Delivery: Room air
Patient hypoxic: no
*Critical Care Note
Total Time (30-74mins, 75-104mins- exclusive of procedures): Not Applicable
Data Reviewed
Review of Other/Old Records Reveals: Labs, Records, Testing and Discharge Summary
ED Attending Note
-
Portions of this chart may have been created with voice recognition software.� Occasional wrong word or��sound alike� substitutions may have occurred due to the inherent limitations of voice recognition software.
Discharge Plan
Departure
Patient Disposition: Admit
Date of Disposition: 04/17/25
Time of Disposition: 00:38
Presentation/result/management discussed w/ accepting MD/DO: Hospitalist
Discharge Problem:
Progressive weakness
Prescriptions:
No Action
lorazepam 1 MG tablet
1 mg PO QID@06,12,17,00
dorzolamide-timolol [Cosopt] 22.3-6.8 mg/mL Drops
1 drp BOTH EYES BID
brimonidine [Alphagan P] 0.1 % Drops
1 drp BOTH EYES BID
acetaminophen 160 mg/5 mL (5 mL) Solution
0 mg PO BIDPRN PRN (Reason: mild pain)
Nplate 125 mcg Recon Soln
0 mcg SC TH
cefdinir 125 mg/5 mL suspension for reconstitution
300 mg PO BID 5 Days Qty: 120 0RF
Referrals:
Alexandr Campos MD [Family Provider, Internal Medicine]
Interventions
Interventions:
*Risk Screen - Suicide Last Done: 04/16/25 22:32
*General Assessment Last Done: 04/16/25 22:32
*Neglect/Abuse Screening Last Done: 04/16/25 22:32
*ED- Fall Risk Assessment Last Done: 04/16/25 22:32
*ED COVID-19 Vaccine History Last Done: 04/16/25 22:32
ED- Cardiac Assessment Last Done: 04/16/25 22:41
ED- Neurological Assessment Last Done: 04/16/25 22:41
ED- Pulmonary Assessment Last Done: 04/16/25 22:41
Discharge Date and Time
Print Language: PUERTO RICAN
[2025-04-17 01:57] LABS: Urine Squamous Cell 16-20 /LPF (Few)
[2025-04-17 01:59] LABS: Urine White Cell 0-2 /HPF (0-5)
--- NOTE | 2025-04-17 02:11 | HPS.HSE ---
Family Physician
-
Family Physician: Alexandr Campos
Chief Complaint
-
Weakness
History of Present Illness
This is a 84-year-old female with past medical history significant for ITP, anxiety, glaucoma, recent traumatic fall with difficulty chewing on swallowing on pur�ed diet and chronic weakness and lethargy presents to the emergency department with
ongoing weakness lethargy.
Patient was recently admitted to the hospital about 4 days ago for an episode of rash and UTI. She appeared to have developed a rash after taking Macrobid. She was placed on ceftriaxone for positive UA to complete the course for a urinary tract
infection. During that admission she had a CT scan which showed a possible early appendicitis. After evaluation patient was not felt to have appendicitis and she was able to go home. During the hospital stay she was n.p.o. for a while and patient
felt that not been able to eat while she was in the hospital as resulted in significant weakness. She has not had any fevers or chills. She has no nausea or vomiting. She had's increased incontinence of urine as well as bowel but is not having
diarrhea. She denies any numbness or tingling. She does report ongoing rash in the groin/diaper area. She has continued with discharge cefdinir and denies any other medications.
In the emergency department today she was afebrile, blood pressure was 135/50 with a pulse of 88 and she was satting 98% on room air.
CBC was unremarkable, electrolytes were also unremarkable with a BUN/creatinine essentially at baseline. UA is negative.
Medical History
Past Medical History
Past Medical History: Reports Other
Additional Past Medical History:
09/04 -09/07/2024 for sepsis secondary to E. coli UTI. Cystitis was also noted on CT scan.
. ITP receives Nplate injection at outpatient infusion center. She received Nplate infusion on 09/14/2024 . She typically receives Nplate infusion on but was held during her recent infection
anxiety
fall
glaucoma
slightly elevated AST September admission
chronic dysphagia with pill swallowing only
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
Past Surgical History: Reports Other (Unknown)
Social History
Tobacco: Non-smoker
Alcohol: None
Drug: None
Personal: Single
Living: Alone (Lives in [address] suite built onto farzad Devine's home)
Employment: Retired
Family History
Family History: Not pertinent
Allergies / Home Medications
Allergies reflects when Allergies were last updated in [facility].
Home Medications with original date entered in [facility]
Allergy/Medication List:
Allergies
Allergy/AdvReac Type Severity Reaction Status Date / Time
acyclovir [From Zovirax] Allergy ANAPHYLAXIS-PT. Verified 09/21/24 10:04
SAID -
LOWERED
HER
PLATELETS
alprazolam [From Xanax] Allergy HYPER Verified 09/21/24 10:04
aspirin Allergy LOWERED Verified 09/21/24 10:04
HER
PLATELETS
caffeine Allergy Unknown Verified 09/21/24 10:04
ciprofloxacin [From Cipro] Allergy Hives/ pt Verified 09/21/24 10:04
states she
is now
able to
take cipro
epinephrine Allergy HEART RACES Verified 09/21/24 10:04
erythromycin base Allergy 'felt skin Verified 09/21/24 10:04
[Erythromycin Base] crawling'
escitalopram oxalate Allergy THROMBOCYTO Verified 09/21/24 10:04
[From Lexapro] PENIA
paroxetine HCl [From Paxil] Allergy THROMBOCYTO Verified 09/21/24 10:04
PENIA
Penicillins Allergy Rash - Verified 09/21/24 10:04
tolerated
ceftriaxone
in the past
Sulfa (Sulfonamide Allergy HIVES AND Verified 09/21/24 10:04
Antibiotics) RASH
sulfite Allergy HIVES AND Verified 09/21/24 10:04
RASH
Home Medications
lorazepam 1 mg tablet 1 mg PO QID@06,12,17,00 01/31/14
acetaminophen 160 mg/5 mL (5 mL) oral solution 0 mg PO BIDPRN PRN mild pain 09/21/24
brimonidine 0.1 % eye drops (Alphagan P) 1 drp BOTH EYES BID 09/21/24
dorzolamide 22.3 mg-timolol 6.8 mg/mL eye drops (Cosopt) 1 drp BOTH EYES BID 09/21/24
prednisone 10 mg tablet 10 mg PO DAILY@1200 09/21/24
romiplostim 125 mcg subcutaneous solution (Nplate) 0 mcg SC TH 09/21/24
Review of Systems
-
Constitutional: Reports No Symptoms
EENT: Reports No Symptoms
Respiratory: Reports No Symptoms
Cardiac: Reports No Symptoms
Abdomen/GI: Reports No Symptoms
: Reports No Symptoms
Musculoskeletal: Reports No Symptoms
Skin: Reports No Symptoms
Neurological: Reports No Symptoms
Endocrine: Reports No Symptoms
Hematologic/Lymphatic: Reports No Symptoms
Psych: Reports No Symptoms
Physical Exam
Vital Signs
Vital Signs
Temp Pulse Resp BP Pulse Ox
97.9 F 77 11 129/67 99
04/16/25 22:45 04/17/25 01:00 04/17/25 01:00 04/17/25 01:00 04/17/25 01:00
Physical Exam
General: Comfortable and Cachectic; No Fever or Chills
HEENT: NormoCephalic, Anicteric, PERRLA, [place] Conjunctivae, No Ptosis, Neck Nontender and Other (Bilateral red turbinates, rhinorrhea, point tenderness between eyes and top of nose)
Respiratory: Clear; No Wheezes, Rales or Rhonchi
Cardiac: S1/S2 and Regular Rhythm; No Murmur, Rub, Gallop or Peripheral Edema
Breast: Deferred by me
GI: Soft, Non Tender, Non Distended, Normal Bowel Sounds and No Hepatosplenomegaly
Genito-urinary: Deferred by me
Musculoskeletal: No Clubbing, No Cyanosis and No Edema
Skin: Warm and Dry; No Rash or Jaundice
Neuro: AO x 3, No Motor Deficits, Nonfocal/grossly intact, Cranial Nerves Intact and No Sensory Deficits; No Slurred Speech, Facial Droop, Tremors or Sedated
Laboratory Results
-
04/16/25 17:12
04/16/25 17:12
Laboratory Results
Total Bilirubin 0.6 mg/dl (0.2-1.3) 04/16/25 17:12
AST 27 U/L (14-36) 04/16/25 17:12
ALT 20 U/L (0-35) 04/16/25 17:12
Alkaline Phosphatase 76 U/L (38-126) 04/16/25 17:12
Data Reviewed
-
Lab Data: Labs Reviewed by me
Impression/Plan
-
IMPRESSION:
84-year-old with past medical history significant for ITP presenting to the emergency department with weakness since discharge from the hospital. She was admitted few days ago with development of a rash after taking Macrobid for UTI. She was found
to have UTI when he has been ill and was treated with ceftriaxone and discharged on cefdinir. She had a CT scan which was concerning for early appendicitis but after evaluation by surgery patient felt not to have appendicitis. She received the
initial IV steroids for the rash but has not been on steroids since then. She now has weakness without any focal logical deficits. She has no signs of systemic infection. UA is clear of an acute urinary tract infection. She still has mild
symptoms including incontinence of the urine and some burning sensation. Her labs were similar to prior without any acute abnormalities.
PLAN:
Weakness with ambulatory dysfunction-uncertain etiology. She is on treatment for UTI and UA is negative at this time. She has preserved renal function and no signs of significant dehydration. No signs of pneumonia on history or examination.
- Admit to [facility] observation
� Check COVID and flu
� Continue IV hydration for now
� Check TSH
� Check CPK
� Orthostatics
� PT consultation
UTI -appears to be resolving
� Continue cefdinir 200 mg p.o. twice daily
Groin rash
� Suspect fungal but cannot rule out damp dermatitis, nystatin application to groin
DVT prophylaxis�Lovenox subcu
CODE STATUS� full code
[2025-04-17 02:43] LABS: COVID-19 Antigen Negative (Negative)
--- NOTE | 2025-04-17 04:00 | DOWNTIME ---
There was a [employer] Client [employer] Downtime on 04/18/2025 from 0100 to 04/18/2025 at 0215. Downtime documentation of patient's care, including medication administrations, has been reconciled in the electronic record per guidelines. Refer to the
patient's paper chart under the miscellaneous tab to see printed paper medication records and downtime forms.
[2025-04-17] MEDS: NSS 1000 IV ×2 (04:58→21:28)
[2025-04-17] MEDS: ATIVAN 1 MG PO ×4 (05:09→23:32)
[2025-04-17] MEDS: ALPHAGAN 0.2% EYE DROPS 1 DROP BOTH EYES ×2 (07:47→21:30)
[2025-04-17] MEDS: HEPARIN 5000 UNITS SC ×2 (07:48→21:25)
[2025-04-17] MEDS: MYCOLOG OINTMENT 1 APPLIC TOPICAL ×2 (07:49→16:59)
[2025-04-17] MEDS: TRUSOPT 2% OPHTHALMIC SOLUTION 1 DROP BOTH EYES (07:49)
[2025-04-17] MEDS: TIMOPTIC 0.25% OPHTHALMIC SOLUTION 1 DROP BOTH EYES ×2 (07:49→21:31)
[2025-04-17 08:46] LABS: Hematocrit 33.2 % (37.0-47.0); Hemoglobin 11.5 g/dL (12.0-16.0); Mean Corp Hgb Conc. 34.6 g/dL (33.0-37.0); Mean Corpuscular Volume 88.5 fL (81.0-99.0); Platelet Count 193 10^3/uL (130-400); Red Cell Dist. Width 13.2 % (11.5-14.5)
[2025-04-17 09:27] LABS: Blood Urea Nitrogen 26 mg/dl (7-17); Calcium 8.7 mg/dl (8.4-10.2); Carbon Dioxide 26 mmol/L (22-30); Chloride 104 mmol/L (98-107); Estimated Creatinine Clearance 35 ml/min; Glucose 101 mg/dl (70-99); Magnesium 2.0 mg/dl (1.6-2.3); Potassium 4.0 mmol/L (3.5-5.1); Sodium 134 mmol/L (135-145); eGFR 55.90
--- NOTE | 2025-04-17 09:46 | W.PN.HOSP.TC ---
Today's Communication/Plan
-
see A/P
Assessment / Plan
Assessment / Plan
HPI: 84-year-old female with past medical history significant for ITP, anxiety, glaucoma, recent traumatic fall with difficulty chewing or swallowing on pur�ed diet, chronic weakness and lethargy; p/w ongoing weakness and lethargy.
She was admitted few days ago with development of a rash after taking Macrobid for UTI. She was found to have UTI when she has been ill and was treated with ceftriaxone and discharged on cefdinir. She had a CT scan which was concerning for early
appendicitis but after evaluation by surgery patient felt not to have appendicitis. She received the initial IV steroids for the rash but has not been on steroids since then.
She now has weakness without any focal logical deficits. She has no signs of systemic infection. UA clear on admission. She still has mild symptoms including incontinence of the urine and some burning sensation. Her labs were similar to prior
without any acute abnormalities.
A/P:
# Clinical deconditioning with weakness, ambulatory dysfunction
She was on treatment for UTI and UA negative at this time.
No evidence of acute infection at this time. COVID and flu are negative
Check TSH reflex FT4
CPK negative
Check orthostatic VS
PT consultation
# resolving UTI
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
# Groin rash
Suspect fungal but cannot rule out damp dermatitis, nystatin application to groin
# Dysphagia, chronic
pt states that she had jaw injury following a fall in the distant past, she has since been on a dysphagic diet and prefers liquid meds
She declined SPL eval at this time
# Mild hyponatremia
monitor
# Recent appendicolith, NOT appendicitis, incidental finding on CT abdomen pelvis
# ITP
Platelet count WNL at 193 today
weekly Nplate injection on , pt asking for Nplate injection while here, could ask heme on Wed if they could order Nplate for pt
DVT prophylaxis�Lovenox subcu
CODE STATUS� full code
total time 51 min
Anticipated Discharge: 24 - 48 hours
Subjective/Interval History
-
Date of Service: April 17, 2025
Objective Data
-
Labs:
Laboratory Results
04/17/25
08:23
WBC 7.3
Hgb 11.5 L
Hct 33.2 L
Plt Count 193
Sodium 134 L
Potassium 4.0
Chloride 104
Carbon Dioxide 26
BUN 26 H
Creatinine 1.0
Glucose 101 H
Calcium 8.7
Vital Signs:
Vital Signs
Temp Pulse Resp BP Pulse Ox
36.6 C 85 16 112/64 100
04/17/25 07:20 04/17/25 07:20 04/17/25 07:20 04/17/25 07:20 04/17/25 07:20
I&O
04/16/25 04/17/25 04/18/25
06:59 06:59 06:59
Intake Total 140 / 140
Balance 140 / 140
Review of Systems
-
History Source: Patient
Genitourinary: Reports Dysuria
Physical Exam
-
General: Well Developed, No Apparent Distress, Comfortable, Conversant and Appears Chronically Ill
HEENT: Normocephalic and Atraumatic
Respiratory: Clear to Auscultation and Non Labored Respirations; Negative Accessory Resp Muscle Use
Cardiac: Regular Rhythm and S1/S2
Breast: Deferred by me
GI: Soft, Nontender, Nondistended and Normal Bowel Sounds
Musculoskeletal: No Clubbing, No Cyanosis and No Edema
Skin: Warm and Dry
Neuro: Awake and Alert
Psych: Calm and Intact Judgement/Insight
Data Reviewed
-
Labs: Labs Reviewed by me
Old Records: Reviewed
[2025-04-17] MEDS: ROCEPHIN 1000 MG IV (11:36)
[2025-04-17] MEDS: STERILE WATER FOR INJECTION 10 ML IV (11:36)
--- NOTE | 2025-04-17 11:42 | CM ---
CM reviewed chart, patient seen bedside, initial assessment completed. Patient is a 84-year-old female with past medical history significant for ITP, anxiety, glaucoma, recent traumatic fall with difficulty chewing on swallowing on pur�ed diet and
chronic weakness and lethargy presents to the emergency department with ongoing weakness lethargy.
Patient recently discharged from hospital. Patient resides in a one level in law suite attached to sons home, ramp to enter or three steps to enter with iron railing. Patient reports having a walker, cane, and wheelchair at home. Patient reports her
daughter does shopping for her. Patient reports hx [facility] in past, would like referral to [facility], TT to liaison with referral. Patient reports hx [facility] in past. PCP Alexandr Campos, [facility], confirms
prescription coverage. [facility] form verbally reviewed, refused to sign, provided with copy, placed in chart. CM offered to discuss with patients family, pt declining at this time. CM will continue to follow for all discharge planning needs.
Plan; home with referral to [facility]
--- NOTE | 2025-04-17 12:05 | VNURNOTE ---
Home Health Liaison met with patient at bedside to discuss [facility] nurse/therapy, visits, schedule and homebound status. Patient is agreeable and understands that visits at home will be 2-3 x per week to assess and teach medical management. Patient
is aware that [facility] will contact them for start of care in 1-2 days after discharge from . Provided contact number for [facility].
[facility] referral completed in [facility].
[2025-04-17] MEDS: TRUSOPT 2% OPHTHALMIC SOLUTION BOTH EYES ×2 (21:31→21:42)
[2025-04-17] MEDS: MYCOLOG OINTMENT TOPICAL ×2 (21:31→21:43)
[2025-04-18] MEDS: TYLENOL ORAL SOLUTION 650 MG PO (05:00)
[2025-04-18] MEDS: ATIVAN 1 MG PO ×2 (05:01→12:17)
[2025-04-18 06:48] LABS: Hematocrit 34.1 % (37.0-47.0); Hemoglobin 11.5 g/dL (12.0-16.0); Mean Corp Hgb Conc. 33.7 g/dL (33.0-37.0); Mean Corpuscular Volume 90.5 fL (81.0-99.0); Platelet Count 192 10^3/uL (130-400); Red Cell Dist. Width 13.0 % (11.5-14.5)
[2025-04-18 07:00] VITALS: BP 134/73
[2025-04-18 07:20] LABS: Blood Urea Nitrogen 20 mg/dl (7-17); Calcium 8.3 mg/dl (8.4-10.2); Carbon Dioxide 25 mmol/L (22-30); Chloride 105 mmol/L (98-107); Estimated Creatinine Clearance 39 ml/min; Glucose 95 mg/dl (70-99); Magnesium 1.8 mg/dl (1.6-2.3); Potassium 3.9 mmol/L (3.5-5.1); Sodium 134 mmol/L (135-145); eGFR > 60.00
[2025-04-18] MEDS: HEPARIN 5000 UNITS SC (08:11)
[2025-04-18] MEDS: MYCOLOG OINTMENT TOPICAL ×2 (08:13→15:47)
[2025-04-18] MEDS: TIMOPTIC 0.25% OPHTHALMIC SOLUTION BOTH EYES (08:14)
[2025-04-18] MEDS: TRUSOPT 2% OPHTHALMIC SOLUTION BOTH EYES (08:14)
[2025-04-18] MEDS: ALPHAGAN 0.2% EYE DROPS BOTH EYES (08:15)
[2025-04-18] MEDS: NSS 1000 IV (10:24)
[2025-04-18] MEDS: ROCEPHIN 1000 MG IV (12:17)
--- NOTE | 2025-04-18 12:17 | W.PN.HOSP.TC ---
Today's Communication/Plan
-
see A/P
Assessment / Plan
Assessment / Plan
HPI: 84-year-old female with past medical history significant for ITP, anxiety, glaucoma, recent traumatic fall with difficulty chewing or swallowing on pur�ed diet, chronic weakness and lethargy; p/w ongoing weakness and lethargy.
She was admitted few days ago with development of a rash after taking Macrobid for UTI. She was found to have UTI when she has been ill and was treated with ceftriaxone and discharged on cefdinir. She had a CT scan which was concerning for early
appendicitis but after evaluation by surgery patient felt not to have appendicitis. She received the initial IV steroids for the rash but has not been on steroids since then.
She now has weakness without any focal logical deficits. She has no signs of systemic infection. UA clear on admission. She still has mild symptoms including incontinence of the urine and some burning sensation. Her labs were similar to prior
without any acute abnormalities.
A/P:
# Clinical deconditioning with weakness, ambulatory dysfunction
She was on treatment for UTI and UA negative at this time.
No evidence of acute infection at this time. COVID and flu are negative.
TSH 2.09, CPK negative
orthostatic VS equivocal, recc compression therapy however daughter states that pt would not be able to tolerate due to neuropathy and has sensitive skin
PT cleared for HH
Discussed with pt and daughter extensively about her use of Ativan 1 mg QID which I felt is too much for this elderly pt who has frequent falls- pt willing to cut down to TID.
Recc to cont taper benzo outpt with PCP
# resolving UTI
Pt requesting IV Ceftriaxone while in the hospital, changed [employer] cefdinir to Ceftriaxone, Abx end date 04/19
# Dysuria with incontinence, suspect interstitial cystitis
Pyridium PRN
Recc outpt uro eval
# Groin rash
Suspect fungal but cannot rule out damp dermatitis, nystatin application to groin PRN
# Dysphagia, chronic
pt states that she had jaw injury following a fall in the distant past, she has since been on a dysphagic diet and prefers liquid meds
She declined SPL eval at this time
# Mild hyponatremia
monitor
# Recent appendicolith, NOT appendicitis, incidental finding on CT abdomen pelvis
# ITP
Platelet count WNL at 193 today
weekly Nplate injection on , pt asking for Nplate injection while here, could ask heme on Wed if they could order Nplate for pt
DVT prophylaxis�Lovenox subcu
CODE STATUS� full code
DW RN
DW CM
extensive discussion with daughter on the phone
Anticipated Discharge: Today
Subjective/Interval History
-
Date of Service: April 18, 2025
Objective Data
-
Labs:
Laboratory Results
04/18/25
06:15
WBC 6.3
Hgb 11.5 L
Hct 34.1 L
Plt Count 192
Sodium 134 L
Potassium 3.9
Chloride 105
Carbon Dioxide 25
BUN 20 H
Creatinine 0.9
Glucose 95
Calcium 8.3 L
Vital Signs:
Vital Signs
Temp Pulse Resp BP Pulse Ox
36.9 C 78 18 134/73 96
04/18/25 07:00 04/18/25 07:00 04/18/25 07:00 04/18/25 07:00 04/18/25 07:00
I&O
04/17/25 04/18/25 04/19/25
06:59 06:59 06:59
Intake Total 140 / 140 480 / 480
Balance 140 / 140 480 / 480
Review of Systems
-
History Source: Patient
Genitourinary: Reports Dysuria and Incontinence
Physical Exam
-
General: Well Developed, No Apparent Distress, Comfortable, Conversant and Appears Chronically Ill
HEENT: Normocephalic and Atraumatic
Respiratory: Clear to Auscultation and Non Labored Respirations; Negative Accessory Resp Muscle Use
Cardiac: Regular Rhythm and S1/S2
Breast: Deferred by me
GI: Soft, Nontender, Nondistended and Normal Bowel Sounds
Musculoskeletal: No Clubbing, No Cyanosis and No Edema
Skin: Warm and Dry
Neuro: Awake and Alert
Psych: Calm and Intact Judgement/Insight
Data Reviewed
-
Labs: Labs Reviewed by me
Old Records: Reviewed
[2025-04-18] MEDS: STERILE WATER FOR INJECTION 10 ML IV (12:24)
--- NOTE | 2025-04-18 13:27 | W.DCSUMMARY ---
Discharge Summary
Discharge Data
Date of Admission: 04/17/25
Date of Discharge: 04/18/25
Total time spent discharging patient (in min): 40
-
Pending Results: No
Hospital Course
Principal Diagnosis:
Clinical deconditioning with weakness and ambulatory dysfunction, could be related to benzodiazepine side effect
Chronic Diagnoses:�
Resolving recent UTI
Dysuria with incontinence, suspect interstitial cystitis, started Pyridium PRN
Dysphagia, chronic
Recent appendicolith, NOT appendicitis, incidental finding on CT abdomen pelvis
ITP, on weekly Nplate injection on
Consultations:�
None
Procedures:�
None
Clinical course:�
This is a 84-year-old female with past medical history as stated above, who presented with frequent falls at home, ambulatory dysfunction, and clinical deconditioning.
Problem 1:
Clinical deconditioning with weakness and ambulatory dysfunction.
She was on treatment for UTI and UA was negative this time.
She has no evidence of acute infection. Her COVID and flu tests were negative.
Her TSH was within normal limit at 2.09, and CPK was negative.
Her orthostatic VS was equivocal, and according to her daughter, she would not tolerate compression therapy with her neuropathy anyway.
It was noted that the patient is on relatively high dose benzodiazepine with Ativan 1 mg 4 times daily at home. This could be contributing to her ambulatory dysfunction and weakness.
Extensive discussion with the patient and her daughter about cutting down benzodiazepine, and the patient finally agreed to decrease it to 3 times daily instead of her usual 4 times daily.
She can follow-up with the PCP for further benzo tapering.
She was cleared by PT for home health.
As for the rest of her medical problems, they were stable during her hospital stay.
Discharge Plan
-
Patient Disposition: Home with Home Care
Discharge Diagnosis/Procedures: Clinical deconditioning with weakness and ambulatory dysfunction, possibly due to clinical deconditioning and Ativan side effect;
Dysuria with incontinence suspect interstitial cystitis
Condition: Fair
Diet: As tolerated
Activity: As tolerated
Driving Restrictions: As prior to admission
Activity Restrictions/Additional Instructions:
You can follow up with urologist outpatient for suspect interstitial cystitis
Referrals:
Alexandr Campos MD [Family Provider, Internal Medicine] - in less than 1 week
Additional Discharge Medication Instructions: Decrease Ativan from Q6H to Q8H. Continue to taper Ativan with your PCP.
Use Pyridium as needed for dysuria.
Continue Cefdinir for 1 more day
Prescriptions:
New
phenazopyridine 100 mg Tablet
100 mg PO TIDPRN PRN (Reason: dysuria) Qty: 30 0RF
Continued
dorzolamide-timolol [Cosopt] 22.3-6.8 mg/mL Drops
1 drp BOTH EYES BID
brimonidine [Alphagan P] 0.1 % Drops
1 drp BOTH EYES BID
acetaminophen 160 mg/5 mL (5 mL) Solution
0 mg PO BIDPRN PRN (Reason: mild pain)
Nplate 125 mcg Recon Soln
0 mcg SC TH
cefdinir 125 mg/5 mL suspension for reconstitution
300 mg PO BID 1 Days Qty: 24 0RF
Rx Instructions:
End date 04/19/2025
Changed
lorazepam 1 MG tablet
1 mg PO TID Qty: 0 0RF
Discharge Orders:
Discharge Patient (As Directed); Ordered 04/18/25
Ordered By: Irma Hankins
Discharge Date and Time
Print Language: [place]
--- NOTE | 2025-04-18 14:24 | CM ---
CM reviewed chart, reviewed with Hospitalist, patient for discharge today. CM spoke with patients daughter, Patti, discussed plan for discharge, aware patient will be followed by [facility], will add [employer] and SW onto referral. Daughter requesting OT to
see patient prior to d/c, TT to Hospitalist with request. Daughter interested in private caregiver information for patient, will place in chart for discharge as patients daughter will transport patient home this evening after work. Will also provide
information for [employer] for waiver information. CM will continue to follow for all discharge planning needs.
Plan; [facility], information for [facility] and waiver program in chart
[2025-04-18 15:00] VITALS: BP 139/73
== END 2025-04-18 16:53 | disposition home health service (06) ==
LOC: 4 WEST ACU 03:12
PROVIDERS: Emergency Medicine; ADMITTING PHYSICIAN Internal Medicine; ATTENDING PHYSICIAN Internal Medicine; EMERGENCY PHYSICIAN Emergency Medicine; FAMILY PHYSICIAN Internal Medicine
DX: R53.1 Weakness (principal); R53.81 Other malaise; R26.2 Difficulty in walking, not elsewhere classified; R21 Rash and other nonspecific skin eruption; R13.10 Dysphagia, unspecified; E87.1 Hypo-osmolality and hyponatremia; D69.3 Immune thrombocytopenic purpura; R30.0 Dysuria; R32 Unspecified urinary incontinence; Z79.52 Long term (current) use of systemic steroids
CPT/HCPCS: 80048; 80053; 81003; 81015; 82550; 83735; 84443; 85025; 85027; 87502; 87811; 97163; 99285; G0378

== ENCOUNTER → 2025-04-19 09:05 | Outpatient (REF) | payer MEDICARE, SELFPAY ==
[2025-04-19 09:24] LABS: Hematocrit 36.2 % (37.0-47.0); Hemoglobin 12.5 g/dL (12.0-16.0); Mean Corp Hgb Conc. 34.5 g/dL (33.0-37.0); Mean Corpuscular Volume 90.3 fL (81.0-99.0); Platelet Count 205 10^3/uL (130-400); Red Cell Dist. Width 12.8 % (11.5-14.5)
== END ==
LOC: OIDL 09:05
PROVIDERS: ATTENDING PHYSICIAN Internal Medicine Hematology & Oncology; FAMILY PHYSICIAN Internal Medicine
DX: D69.3 Immune thrombocytopenic purpura (principal); G62.9 Polyneuropathy, unspecified; Z83.49 Family history of other endocrine, nutritional and metabolic diseases
CPT/HCPCS: 36415; 85025

== ENCOUNTER → 2025-04-26 09:11 | Outpatient (REF) | payer MEDICARE, SELFPAY ==
[2025-04-26 09:44] LABS: Hematocrit 37.7 % (37.0-47.0); Hemoglobin 12.7 g/dL (12.0-16.0); Mean Corp Hgb Conc. 33.7 g/dL (33.0-37.0); Mean Corpuscular Volume 92.0 fL (81.0-99.0); Platelet Count 292 10^3/uL (130-400); Red Cell Dist. Width 13.1 % (11.5-14.5)
== END ==
LOC: OIDL 09:11
PROVIDERS: ATTENDING PHYSICIAN Internal Medicine Hematology & Oncology
DX: D69.3 Immune thrombocytopenic purpura (principal); G62.9 Polyneuropathy, unspecified; Z83.49 Family history of other endocrine, nutritional and metabolic diseases
CPT/HCPCS: 36415; 85025

== ENCOUNTER → 2025-05-03 09:05 | Outpatient (REF) | payer MEDICARE, SELFPAY ==
[2025-05-03 09:17] LABS: Hematocrit 40.3 % (37.0-47.0); Hemoglobin 13.3 g/dL (12.0-16.0); Mean Corp Hgb Conc. 33.0 g/dL (33.0-37.0); Mean Corpuscular Volume 92.4 fL (81.0-99.0); Platelet Count 218 10^3/uL (130-400); Red Cell Dist. Width 13.0 % (11.5-14.5)
== END ==
LOC: OIDL 09:05
PROVIDERS: ATTENDING PHYSICIAN Internal Medicine Hematology & Oncology; FAMILY PHYSICIAN Internal Medicine
DX: D69.3 Immune thrombocytopenic purpura (principal); G62.9 Polyneuropathy, unspecified; Z83.49 Family history of other endocrine, nutritional and metabolic diseases
CPT/HCPCS: 36415; 85025

== ENCOUNTER → 2025-05-10 09:00 | Outpatient (REF) | payer MEDICARE, SELFPAY ==
[2025-05-10 09:14] LABS: Hematocrit 39.6 % (37.0-47.0); Hemoglobin 13.4 g/dL (12.0-16.0); Mean Corp Hgb Conc. 33.8 g/dL (33.0-37.0); Mean Corpuscular Volume 91.7 fL (81.0-99.0); Platelet Count 158 10^3/uL (130-400); Red Cell Dist. Width 13.1 % (11.5-14.5)
== END ==
LOC: OIDL 09:00
PROVIDERS: ATTENDING PHYSICIAN Internal Medicine Hematology & Oncology; FAMILY PHYSICIAN Internal Medicine
DX: D69.3 Immune thrombocytopenic purpura (principal); G62.9 Polyneuropathy, unspecified; Z83.49 Family history of other endocrine, nutritional and metabolic diseases
CPT/HCPCS: 36415; 85025

== ENCOUNTER → 2025-05-17 08:59 | Outpatient (REF) | payer MEDICARE, SELFPAY ==
[2025-05-17 09:25] LABS: Hematocrit 40.0 % (37.0-47.0); Hemoglobin 13.6 g/dL (12.0-16.0); Mean Corp Hgb Conc. 34.0 g/dL (33.0-37.0); Mean Corpuscular Volume 91.1 fL (81.0-99.0); Platelet Count 161 10^3/uL (130-400); Red Cell Dist. Width 13.0 % (11.5-14.5)
== END ==
LOC: OIDL 08:59
PROVIDERS: ATTENDING PHYSICIAN Internal Medicine Hematology & Oncology; FAMILY PHYSICIAN Internal Medicine
DX: D69.3 Immune thrombocytopenic purpura (principal); G62.9 Polyneuropathy, unspecified; Z83.49 Family history of other endocrine, nutritional and metabolic diseases
CPT/HCPCS: 36415; 85025

== ENCOUNTER → 2025-05-24 09:01 | Outpatient (REF) | payer MEDICARE, SELFPAY ==
[2025-05-24 09:22] LABS: Hematocrit 38.4 % (37.0-47.0); Hemoglobin 13.3 g/dL (12.0-16.0); Mean Corp Hgb Conc. 34.6 g/dL (33.0-37.0); Mean Corpuscular Volume 90.8 fL (81.0-99.0); Platelet Count 96 10^3/uL (130-400); Red Cell Dist. Width 13.0 % (11.5-14.5)
== END ==
LOC: OIDL 09:01
PROVIDERS: ATTENDING PHYSICIAN Internal Medicine Hematology & Oncology; FAMILY PHYSICIAN Internal Medicine
DX: D69.3 Immune thrombocytopenic purpura (principal); G62.9 Polyneuropathy, unspecified; Z83.49 Family history of other endocrine, nutritional and metabolic diseases
CPT/HCPCS: 36415; 85025

== ENCOUNTER → 2025-05-31 08:56 | Outpatient (REF) | payer MEDICARE, SELFPAY ==
[2025-05-31 09:29] LABS: Hematocrit 39.3 % (37.0-47.0); Hemoglobin 13.6 g/dL (12.0-16.0); Mean Corp Hgb Conc. 34.6 g/dL (33.0-37.0); Mean Corpuscular Volume 89.9 fL (81.0-99.0); Platelet Count 76 10^3/uL (130-400); Red Cell Dist. Width 13.0 % (11.5-14.5)
== END ==
LOC: OIDL 08:56
PROVIDERS: ATTENDING PHYSICIAN Internal Medicine Hematology & Oncology; FAMILY PHYSICIAN Internal Medicine
DX: D69.3 Immune thrombocytopenic purpura (principal); G62.9 Polyneuropathy, unspecified; Z83.49 Family history of other endocrine, nutritional and metabolic diseases
CPT/HCPCS: 36415; 85025

== ENCOUNTER → 2025-06-07 09:03 | Outpatient (REF) | payer MEDICARE, SELFPAY ==
[2025-06-07 09:28] LABS: Hematocrit 39.9 % (37.0-47.0); Hemoglobin 14.0 g/dL (12.0-16.0); Mean Corp Hgb Conc. 35.1 g/dL (33.0-37.0); Mean Corpuscular Volume 89.5 fL (81.0-99.0); Platelet Count 101 10^3/uL (130-400); Red Cell Dist. Width 13.0 % (11.5-14.5)
== END ==
LOC: OIDL 09:03
PROVIDERS: ATTENDING PHYSICIAN Internal Medicine Hematology & Oncology; FAMILY PHYSICIAN Internal Medicine
DX: D69.3 Immune thrombocytopenic purpura (principal); G62.9 Polyneuropathy, unspecified; Z83.49 Family history of other endocrine, nutritional and metabolic diseases
CPT/HCPCS: 36415; 85025

== ENCOUNTER → 2025-06-14 09:03 | Outpatient (REF) | payer MEDICARE, SELFPAY ==
[2025-06-14 09:29] LABS: Hematocrit 39.6 % (37.0-47.0); Hemoglobin 13.7 g/dL (12.0-16.0); Mean Corp Hgb Conc. 34.6 g/dL (33.0-37.0); Mean Corpuscular Volume 90.6 fL (81.0-99.0); Platelet Count 69 10^3/uL (130-400); Red Cell Dist. Width 12.9 % (11.5-14.5)
== END ==
LOC: OIDL 09:03
PROVIDERS: ATTENDING PHYSICIAN Internal Medicine Hematology & Oncology; FAMILY PHYSICIAN Internal Medicine
DX: D69.3 Immune thrombocytopenic purpura (principal); G62.9 Polyneuropathy, unspecified; Z83.49 Family history of other endocrine, nutritional and metabolic diseases
CPT/HCPCS: 36415; 85025

== ENCOUNTER → 2025-06-21 08:58 | Outpatient (REF) | payer MEDICARE, SELFPAY ==
[2025-06-21 09:23] LABS: Hematocrit 38.3 % (37.0-47.0); Hemoglobin 13.6 g/dL (12.0-16.0); Mean Corp Hgb Conc. 35.5 g/dL (33.0-37.0); Mean Corpuscular Volume 90.8 fL (81.0-99.0); Platelet Count 46 10^3/uL (130-400); Red Cell Dist. Width 13.0 % (11.5-14.5)
== END ==
LOC: OIDL 08:58
PROVIDERS: ATTENDING PHYSICIAN Internal Medicine Hematology & Oncology; FAMILY PHYSICIAN Internal Medicine
DX: D69.3 Immune thrombocytopenic purpura (principal); G62.9 Polyneuropathy, unspecified; Z83.49 Family history of other endocrine, nutritional and metabolic diseases
CPT/HCPCS: 36415; 85025

== ENCOUNTER → 2025-06-27 09:00 | Outpatient (REF) | payer MEDICARE, SELFPAY ==
[2025-06-27 09:19] LABS: Hematocrit 38.7 % (37.0-47.0); Hemoglobin 13.7 g/dL (12.0-16.0); Mean Corp Hgb Conc. 35.4 g/dL (33.0-37.0); Mean Corpuscular Volume 90.0 fL (81.0-99.0); Platelet Count 78 10^3/uL (130-400); Red Cell Dist. Width 12.8 % (11.5-14.5)
== END ==
LOC: OIDL 09:00
PROVIDERS: ATTENDING PHYSICIAN Internal Medicine Hematology & Oncology; FAMILY PHYSICIAN Internal Medicine
DX: D69.3 Immune thrombocytopenic purpura (principal); G62.9 Polyneuropathy, unspecified; Z83.49 Family history of other endocrine, nutritional and metabolic diseases
CPT/HCPCS: 36415; 85025

== ENCOUNTER → 2025-07-05 08:54 | Outpatient (REF) | payer MEDICARE, SELFPAY ==
[2025-07-05 09:18] LABS: Hematocrit 41.4 % (37.0-47.0); Hemoglobin 14.0 g/dL (12.0-16.0); Mean Corp Hgb Conc. 33.8 g/dL (33.0-37.0); Mean Corpuscular Volume 93.7 fL (81.0-99.0); Platelet Count 123 10^3/uL (130-400); Red Cell Dist. Width 12.6 % (11.5-14.5)
== END ==
LOC: OIDL 08:54
PROVIDERS: ATTENDING PHYSICIAN Internal Medicine Hematology & Oncology; FAMILY PHYSICIAN Internal Medicine
DX: D69.3 Immune thrombocytopenic purpura (principal); G62.9 Polyneuropathy, unspecified; Z83.49 Family history of other endocrine, nutritional and metabolic diseases
CPT/HCPCS: 36415; 85025

== ENCOUNTER → 2025-07-12 08:56 | Outpatient (REF) | payer MEDICARE, SELFPAY ==
[2025-07-12 09:04] LABS: Hematocrit 40.9 % (37.0-47.0); Hemoglobin 14.1 g/dL (12.0-16.0); Mean Corp Hgb Conc. 34.5 g/dL (33.0-37.0); Mean Corpuscular Volume 91.7 fL (81.0-99.0); Platelet Count 82 10^3/uL (130-400); Red Cell Dist. Width 12.4 % (11.5-14.5)
== END ==
LOC: OIDL 08:56
PROVIDERS: ATTENDING PHYSICIAN Internal Medicine Hematology & Oncology
DX: D69.3 Immune thrombocytopenic purpura (principal); G62.9 Polyneuropathy, unspecified; Z83.49 Family history of other endocrine, nutritional and metabolic diseases
CPT/HCPCS: 36415; 85025

== ENCOUNTER → 2025-07-19 09:02 | Outpatient (REF) | payer MEDICARE, SELFPAY ==
[2025-07-19 09:21] LABS: Hematocrit 40.6 % (37.0-47.0); Hemoglobin 13.7 g/dL (12.0-16.0); Mean Corp Hgb Conc. 33.7 g/dL (33.0-37.0); Mean Corpuscular Volume 94.0 fL (81.0-99.0); Platelet Count 121 10^3/uL (130-400); Red Cell Dist. Width 12.5 % (11.5-14.5)
== END ==
LOC: OIDL 09:02
PROVIDERS: ATTENDING PHYSICIAN Internal Medicine Hematology & Oncology; FAMILY PHYSICIAN Internal Medicine
DX: D69.3 Immune thrombocytopenic purpura (principal); G62.9 Polyneuropathy, unspecified; Z83.49 Family history of other endocrine, nutritional and metabolic diseases
CPT/HCPCS: 36415; 85025

== ENCOUNTER → 2025-07-25 09:00 | Outpatient (REF) | payer MEDICARE, SELFPAY ==
[2025-07-25 09:12] LABS: Hematocrit 41.8 % (37.0-47.0); Hemoglobin 14.5 g/dL (12.0-16.0); Mean Corp Hgb Conc. 34.7 g/dL (33.0-37.0); Mean Corpuscular Volume 93.7 fL (81.0-99.0); Platelet Count 95 10^3/uL (130-400); Red Cell Dist. Width 12.4 % (11.5-14.5)
== END ==
LOC: OIDL 09:00
PROVIDERS: ATTENDING PHYSICIAN Internal Medicine Hematology & Oncology; FAMILY PHYSICIAN Internal Medicine
DX: D69.3 Immune thrombocytopenic purpura (principal); G62.9 Polyneuropathy, unspecified; Z83.49 Family history of other endocrine, nutritional and metabolic diseases
CPT/HCPCS: 36415; 85025

== ENCOUNTER → 2025-08-01 09:00 | Outpatient (REF) | payer MEDICARE, SELFPAY ==
[2025-08-01 09:27] LABS: Hematocrit 39.5 % (37.0-47.0); Hemoglobin 13.8 g/dL (12.0-16.0); Mean Corp Hgb Conc. 34.9 g/dL (33.0-37.0); Mean Corpuscular Volume 91.2 fL (81.0-99.0); Platelet Count 82 10^3/uL (130-400); Red Cell Dist. Width 12.3 % (11.5-14.5)
== END ==
LOC: OIDL 09:00
PROVIDERS: ATTENDING PHYSICIAN Internal Medicine Hematology & Oncology; FAMILY PHYSICIAN Internal Medicine
DX: D69.3 Immune thrombocytopenic purpura (principal); G62.9 Polyneuropathy, unspecified; Z83.49 Family history of other endocrine, nutritional and metabolic diseases
CPT/HCPCS: 36415; 85025